=== PATIENT | male | born 1955 | race Caucasian/White ===

== ENCOUNTER → 2016-11-10 | Outpatient (CLI) | payer MEDICARE, BC, MEDICAID | LOC: RAD 14:26 | PROVIDERS: ATTEND Internal Medicine | DX: F03.90 Unspecified dementia, unspecified severity, without behavioral disturbance, psychotic disturbance, mood disturbance, and anxiety (principal) | CPT/HCPCS: 70551 ==

== ENCOUNTER 2017-04-21 23:22 | Emergency (ER) | payer MEDICARE, BC, MEDICAID ==
[2017-04-22] MEDS ORDERED: NORMAL SALINE 1000 ML 1,000 ML IV ONE (00:20)
--- NOTE | 2017-04-22 00:27 | ER Document Report ---
ED General - General Chief Complaint: Accidental Overdose Stated Complaint: POSSIBLE OVERDOSE Time Seen by Provider: 04/21/17 23:38 Cannot obtain history due to: Dementia, Altered mental status Notes: Patient is a 61-year-old male with a past medical history of epilepsy, dementia , hypertension, who presents with altered mental status. Patient still has a very poor historian, does not reliably provide any meaningful details. Family at the bedside states that for the past 3-4 days patient has become more altered , perseverating on his medications, repeatedly asking them about the same topics over and over again. They did pull him out of a fpc on 15 March and have not noticed these behaviors in the past several days. Family is somewhat uncertain if he is other demonstrated similar behaviors in the past although he was hospitalized in 2014 for hyperammonemia and a metabolic encephalopathy. Patient did also apparently take a double dose of valproic acid and Keppra last evening but was demonstrating these symptoms prior to the overdose. Patient himself at this moment denies any concerns or complaints. TRAVEL OUTSIDE OF THE [place] IN LAST 30 DAYS: No - Related Data Allergies/Adverse Reactions: clonazepam [From [employer]] Allergy (Verified 04/21/17 23:26) Past Medical History - General Information source: Patient, Relative Cannot obtain history due to: Dementia, Altered mental status - Social History Smoking Status: Unknown if Ever Smoked Frequency of alcohol use: None Drug Abuse: None Lives with: Family Family History: Reviewed & Not Pertinent Patient has suicidal ideation: No Patient has homicidal ideation: No - Past Medical History Cardiac Medical History: Reports: Hx Hypertension, Hx Heart Murmur - As an adolescent(functional) Denies: Hx Atrial Fibrillation, Hx Congestive Heart Failure, Hx Coronary Artery Disease, Hx Heart Attack, Hx Hypercholesterolemia, Hx Peripheral Vascular Disease, Hx Pulmonary Embolism Pulmonary Medical History: Reports: Hx Sleep Apnea - Not on C-PAP currently Denies: Hx Asthma, Hx Bronchitis, Hx COPD, Hx Pneumonia, Hx Respiratory Failure, Hx Tuberculosis Neurological Medical History: Reports: Hx Seizures - 11/10 leading to TBI. Denies: Hx Cerebrovascular Accident Endocrine Medical History: Reports: Hx Diabetes Mellitus Type 2. Denies: Hx Graves' Disease, Hx Hyperthyroidism, Hx Hypothyroidism Renal/ Medical History: Reports: Hx Benign Prostatic Hyperplasia. Denies: Hx End Stage Renal Disease, Hx Kidney Stones, Hx Peritoneal Dialysis Malignancy Medical History: Denies Hx Lung Cancer GI Medical History: Reports: Hx Gastroesophageal Reflux Disease - No meds. Denies: Hx Crohn's Disease, Hx Hiatal Hernia, Hx Irritable Bowel, Hx Liver Failure, Hx Ulcer Musculoskeltal Medical History: Denies Hx Arthritis, Denies Hx Fibromyalgia, Denies Hx Multiple Sclerosis, Denies Hx Muscular Dystrophy Psychiatric Medical History: Reports: Hx Dementia - TBI, Hx Depression Denies: Hx Bipolar Disorder, Hx Post Traumatic Stress Disorder, Hx Schizophrenia Traumatic Medical History: Reports: Hx Fractures - Hx of fx fingers , Hx Traumatic Brain Injury Past Surgical History: Reports: Hx Bowel Surgery, Hx Cholecystectomy, Hx Tonsillectomy. Denies: Hx Appendectomy, Hx Colostomy, Hx Coronary Artery Bypass Graft, Hx Gastric Bypass Surgery, Hx Herniorrhaphy, Hx Pacemaker - Immunizations Hx Diphtheria, Pertussis, Tetanus Vaccination: Yes Hx Pneumococcal Vaccination: 10/31/11 Review of Systems - Review of Systems Notes: Constitutional: Negative for fever. HENT: Negative for sore throat. Eyes: Negative for visual changes. Cardiovascular: Negative for chest pain. Respiratory: Negative for shortness of breath. Gastrointestinal: Negative for abdominal pain, vomiting or diarrhea. Genitourinary: Negative for dysuria. Musculoskeletal: Negative for back pain. Skin: Negative for rash. Neurological: Negative for headaches, weakness or numbness. Positive for altered mental status 10 point ROS negative except as marked above and in HPI. Physical Exam - Vital signs Vitals: Temp Pulse Resp BP Pulse Ox 97.7 F 118 H 20 132/82 H 97 04/21/17 23:26 04/21/17 23:26 04/21/17 23:26 04/21/17 23:26 04/21/17 23:26 Interpretation: Tachycardic Notes: PHYSICAL EXAMINATION: GENERAL: Frail, somewhat emaciated but in no acute distress. HEAD: Atraumatic, normocephalic. EYES: Pupils equal round and reactive to light, extraocular movements intact, sclera anicteric, conjunctiva are normal. ENT: nares patent, oropharynx clear without exudates. Moderately dry mucous membranes. NECK: Normal range of motion, supple without lymphadenopathy LUNGS: Breath sounds clear to auscultation bilaterally and equal. No wheezes rales or rhonchi. HEART: Regular tachycardia without murmurs ABDOMEN: Soft, nontender, normoactive bowel sounds. No guarding, no rebound. No masses appreciated. EXTREMITIES: Normal range of motion, no pitting or edema. No cyanosis. NEUROLOGICAL: No focal neurological deficits. Moves all extremities spontaneously and on command. PSYCH: Oriented to person, place but not year. Appears to become confused during conversation. SKIN: Warm, Dry, normal turgor, no rashes or lesions noted. Course - Re-evaluation Re-evalutation: 04/22/17 00:26 Patient presents with altered mental status, appears generally confused, family reports multiple bizarre behaviors. Patient did also take an extra dose of his medications although I do not suspect that an additional 500 mg of valproic acid , 500 mg of Keppra and 1 milligram of Ativan would be triggering the symptoms. Moreover family noticed his change in mental status prior to him ingesting these extra medications. Patient is tachycardic at presentation but vitals are otherwise within normal limits. He did have a similar presentation in 2014 at which time he had metabolic encephalopathy secondary to hyperammonemia of unclear etiology although it was thought to be secondary to excessive valproic acid. Will obtain laboratories including an ammonia level, provide IV fluids, and reassess. 04/22/17 03:26 Patient's assessment is completely unremarkable. All labs, CT imaging of the head, chest x-ray, EKG are all clear. Patient's vitals have normalized. Patient does carry a diagnosis of dementia and I suspect that family was not fully aware of the extent of his dementia at time of transitioning him from a care facility to their home. I have discussed this with the family at the bedside who agrees that they will likely need to transition him back to the fpc. They will follow-up with his primary care doctor Dr. Valero. At this time will discharge with return precautions and follow-up recommendations. Verbal discharge instructions given a the bedside and opportunity for questions given. Medication warnings reviewed. Patient is in agreement with this plan and has verbalized understanding of return precautions and the need for primary care follow-up in the next 24-72 hours. - Vital Signs Vital signs: Temp Pulse Resp BP Pulse Ox 97.7 F 118 H 16 128/79 H 97 04/21/17 23:26 04/21/17 23:26 04/22/17 01:00 04/22/17 01:00 04/22/17 01:00 - Laboratory Result Diagrams: 04/22/17 00:15 04/22/17 00:15 Laboratory results interpreted by me: 04/22/17 04/22/17 04/22/17 00:15 00:15 02:40 Plt Count 92 L Direct Bilirubin 0.5 H Urine Protein 100 H Urine Ketones 20 H Urine Urobilinogen 4.0 H - Diagnostic Test Radiology reviewed: Image reviewed, Reports reviewed Radiology results interpreted by me: 04/22/17 03:26 CT of the head: No acute intracranial bleed or mass lesions. Chest x-ray: No acute infiltrate - EKG Interpretation by Me Additional EKG results interpreted by me: 04/22/17 02:33 Sinus rhythm. Rate 93. No ST elevations or depressions. QTC is 448. Discharge - Discharge Clinical Impression: Dementia Qualifiers: Dementia type: unspecified type Dementia behavioral disturbance: with behavioral disturbance Qualified Code(s): F03.91 - Unspecified dementia with behavioral disturbance Altered mental status Qualifiers: Altered mental status type: disorientation Qualified Code(s): R41.0 - Disorientation, unspecified Condition: Stable Disposition: HOME, SELF-CARE Additional Instructions: Your labs, CT imaging of the head, chest x-ray are all normal. Please follow- up with your primary care doctor. Return for any additional concerns you may have. Referrals: AMANDA VALERO MD [Primary Care Provider] - Follow up as needed
[2017-04-22 00:40] LABS: VENOUS BLOOD HCO3 29.1 mmol/L (20-32); VENOUS BLOOD PCO2 49.3 mmHg (35-63); VENOUS BLOOD PH 7.39 (7.30-7.42)
[2017-04-22 00:53] LABS: BLOOD UREA NITROGEN 11 mg/dL (7-20); CALCIUM 9.7 mg/dL (8.4-10.2); CARBON DIOXIDE 28 mmol/L (22-30); CHLORIDE 102 mmol/L (98-107); CREATININE RESULT 1.09 mg/dL (0.52-1.25); GLUCOSE 101 mg/dL (75-110); POTASSIUM 3.7 mmol/L (3.6-5.0); SODIUM 143.6 mmol/L (137-145)
[2017-04-22 00:54] LABS: ALANINE AMINOTRANSFERASE 22 U/L (21-72); ALBUMIN 4.3 g/dL (3.5-5.0); ALKALINE PHOSPHATASE 68 U/L (38-126); ANION GAP 14 (5-19); ASPARTATE AMINO TRANSFERASE 19 U/L (17-59); BILIRUBIN,DIRECT 0.5 mg/dL (0.0-0.4); BILIRUBIN,TOTAL 1.2 mg/dL (0.2-1.3); TOTAL PROTEIN 7.6 g/dL (6.3-8.2)
[2017-04-22 01:08] LABS: VALPROIC ACID 101.7 ug/mL (50.0-120.0)
[2017-04-22 01:11] LABS: ABSOLUTE LYMPHOCYTES (AUTO) 1.6 10^3/uL (0.5-4.7); ABSOLUTE MONOCYTES (AUTO) 0.7 10^3/uL (0.1-1.4); ABSOLUTE NEUT (AUTO) 2.9 10^3/uL (1.7-8.2); BASOPHILS % (AUTO) 0.3 % (0-2); EOSINOPHILS % (AUTO) 0.8 % (0-6); HEMATOCRIT 45.2 % (37.9-51.0); HGB HCT DIFFERENCE 2.8; LYMPHOCYTES % (AUTO) 30.1 % (13-45); MEAN CORPUSCULAR HEMOGLOBIN 31.5 pg (27.0-33.4); MEAN CORPUSCULAR HGB CONC 35.3 g/dL (32.0-36.0); MEAN CORPUSCULAR VOLUME 89 fl (80-97); MONOCYTES % (AUTO) 12.6 % (3-13); RED BLOOD COUNT 5.07 10^6/uL (4.35-5.55); RED CELL DISTRIBUTION WIDTH 13.9 % (11.5-14.0); SEGMENTED NEUTROPHILS % (AUTO) 56.2 % (42-78); WHITE BLOOD COUNT 5.2 10^3/uL (4.0-10.5)
--- NOTE | 2017-04-22 02:48 | RADIOLOGY REPORT (SQ) ---
EXAM DESCRIPTION: CT HEAD WITHOUT COMPLETED DATE/TIME: 04/22/2017 2:09 am REASON FOR STUDY: ams COMPARISON: 05/22/2015. MRI, 11/10/2016. TECHNIQUE: Axial images acquired through the brain without intravenous contrast. Images reviewed wi th bone, brain and subdural windows. Images stored on PACS. All CT scanners at this facility use dose modulation, iterative reconstruction, and/or weight based d osing when appropriate to reduce radiation dose to as low as reasonably achievable (ALARA). [facility]: Dose Right [facility]: CareDose [facility]: Dose Right [facility]: Teradose 4D [facility]: [employer] RADIATION DOSE: Up-to-date CT equipment and radiation dose reduction techniques were employed. CTDIv ol: 55.3 mGy. DLP: 996 mGy-cm. mGy. LIMITATIONS: None. FINDINGS: VENTRICLES: Normal size and contour. CEREBRUM: No masses. No hemorrhage. No midline shift. No evidence for acute infarction. Normal gra y/white matter differentiation. No areas of low density in the white matter. Moderate cerebral volum e loss. CEREBELLUM: No masses. No hemorrhage. No alteration of density. No evidence for acute infarction. EXTRAAXIAL SPACES: No fluid collections. No masses. Atherosclerosis. ORBITS AND GLOBE: No intra- or extraconal masses. Normal contour of globe without masses. CALVARIUM: No fracture. PARANASAL SINUSES: No fluid or mucosal thickening. SOFT TISSUES: No mass or hematoma. OTHER: No other significant finding. IMPRESSION: No acute findings. EVIDENCE OF ACUTE STROKE: NO. COMMENT: Quality ID # [id number]: Final reports with documentation of one or more dose reduction techniques (e.g., Automated exposure control, adjustment of the mA and/or kV according to patient size, use of iterative reconstruction technique) TECHNICAL DOCUMENTATION: JOB ID: [id number] [employer]- All Rights Reserved
--- NOTE | 2017-04-22 02:49 | RADIOLOGY REPORT (SQ) ---
EXAM DESCRIPTION: CHEST SINGLE VIEW COMPLETED DATE/TIME: 04/22/2017 2:24 am REASON FOR STUDY: cough, tachycardia COMPARISON: 05/17/2015. EXAM PARAMETERS: NUMBER OF VIEWS: One view. TECHNIQUE: Single frontal radiographic view of the chest acquired. RADIATION DOSE: NA LIMITATIONS: None. FINDINGS: LUNGS AND PLEURA: No opacities, masses or pneumothorax. No pleural effusion. MEDIASTINUM AND HILAR STRUCTURES: No masses. Contour normal. HEART AND VASCULAR STRUCTURES: Heart normal in size. Normal vasculature. BONES: No acute findings. HARDWARE: None in the chest. OTHER: No other significant finding. IMPRESSION: NO ACUTE RADIOGRAPHIC FINDING IN THE CHEST. TECHNICAL DOCUMENTATION: JOB ID: [id number]
[2017-04-22 03:16] LABS: APPEARANCE,URINE CLOUDY; BILIRUBIN,URINE NEGATIVE (NEGATIVE); GLUCOSE, URINE NEGATIVE (NEGATIVE); KETONES,URINE 20 mg/dL (NEGATIVE); LEUKOCYTE ESTERASE,URINE NEGATIVE (NEGATIVE); NITRITE,URINE NEGATIVE (NEGATIVE); PROTEIN,URINE 100 mg/dL (NEGATIVE); URINE SPECIFIC GRAVITY 1.035
[2017-04-22 03:55] VITALS: BP 128/81
--- NOTE | 2017-04-22 07:23 | EKG REPORT ---
SEVERITY:- ABNORMAL ECG - SINUS RHYTHM LEFT ANTERIOR FASCICULAR BLOCK NONSPECIFIC LATERAL ST-T CHANGES : Confirmed by: Chinedu Kang MD 22-Apr-2017 07:22:58
== END 2017-04-22 03:56 | disposition home or self-care (01) ==
LOC: ER 23:22
DX: F03.91 Unspecified dementia, unspecified severity, with behavioral disturbance (principal); T42.6X1A Poisoning by other antiepileptic and sedative-hypnotic drugs, accidental (unintentional), initial encounter; T42.4X1A Poisoning by benzodiazepines, accidental (unintentional), initial encounter; R00.0 Tachycardia, unspecified; I10 Essential (primary) hypertension; G40.909 Epilepsy, unspecified, not intractable, without status epilepticus; Z79.899 Other long term (current) drug therapy; Z88.8 Allergy status to other drugs, medicaments and biological substances; E11.9 Type 2 diabetes mellitus without complications; Z87.820 Personal history of traumatic brain injury
CPT/HCPCS: 93005; 99285; 96360; 36415; 82140; 85025; 80053; 81001; 80164; 82803; 71010; 70450; 93010; J7030

== ENCOUNTER 2017-04-26 15:26 | Observation (INO) | payer MEDICARE, BC, MEDICAID ==
[2017-04-26 17:27] LABS: HEMATOCRIT 38.8 % (37.9-51.0); HEMOGLOBIN 13.8 g/dL (13.5-17.0); HGB HCT DIFFERENCE 2.6; MEAN CORPUSCULAR HEMOGLOBIN 31.5 pg (27.0-33.4); MEAN CORPUSCULAR HGB CONC 35.6 g/dL (32.0-36.0); MEAN CORPUSCULAR VOLUME 88 fl (80-97); RED BLOOD COUNT 4.39 10^6/uL (4.35-5.55); RED CELL DISTRIBUTION WIDTH 13.3 % (11.5-14.0); WHITE BLOOD COUNT 4.3 10^3/uL (4.0-10.5)
[2017-04-26 17:49] LABS: ALANINE AMINOTRANSFERASE 27 U/L (21-72); ALBUMIN 3.8 g/dL (3.5-5.0); ALKALINE PHOSPHATASE 57 U/L (38-126); ANION GAP 13 (5-19); ASPARTATE AMINO TRANSFERASE 20 U/L (17-59); BILIRUBIN,DIRECT 0.4 mg/dL (0.0-0.4); BILIRUBIN,TOTAL 0.7 mg/dL (0.2-1.3); BLOOD UREA NITROGEN 12 mg/dL (7-20); CALCIUM 9.2 mg/dL (8.4-10.2); CARBON DIOXIDE 26 mmol/L (22-30); CHLORIDE 104 mmol/L (98-107); CREATININE RESULT 0.92 mg/dL (0.52-1.25); GLUCOSE 95 mg/dL (75-110); SODIUM 142.5 mmol/L (137-145); TOTAL PROTEIN 6.9 g/dL (6.3-8.2)
[2017-04-26 18:03] LABS: APPEARANCE,URINE SLIGHTLY-CLOUDY; BILIRUBIN,URINE NEGATIVE (NEGATIVE); GLUCOSE, URINE NEGATIVE (NEGATIVE); KETONES,URINE 20 mg/dL (NEGATIVE); LEUKOCYTE ESTERASE,URINE NEGATIVE (NEGATIVE); NITRITE,URINE NEGATIVE (NEGATIVE); PROTEIN,URINE 30 mg/dL (NEGATIVE); URINE SPECIFIC GRAVITY 1.033
[2017-04-26 18:32] LABS: THYROID STIMULATING HORMONE 0.87 uIU/mL (0.47-4.68)
[2017-04-26] MEDS: NORMAL SALINE 1000 ML 1,000 ML IV PRN (20:30)
--- NOTE | 2017-04-26 21:30 | RADIOLOGY REPORT (SQ) ---
EXAM DESCRIPTION: CHEST PA/LAT COMPLETED DATE/TIME: 04/26/2017 7:05 pm REASON FOR STUDY: ENCEPHALOPATHY COMPARISON: May 2015 EXAM PARAMETERS: NUMBER OF VIEWS: two views TECHNIQUE: Digital Frontal and Lateral radiographic views of the chest acquired. RADIATION DOSE: NA LIMITATIONS: none FINDINGS: LUNGS AND PLEURA: No opacities, masses or pneumothorax. No pleural effusion. MEDIASTINUM AND HILAR STRUCTURES: No masses or contour abnormalities. HEART AND VASCULAR STRUCTURES: Heart normal size. No evidence for failure. BONES: No acute findings. HARDWARE: None in the chest. OTHER: No other significant finding. IMPRESSION: NO SIGNIFICANT RADIOGRAPHIC FINDING IN THE CHEST. TECHNICAL DOCUMENTATION: JOB ID: [id number] [employer]- All Rights Reserved
[2017-04-26] MEDS: LORAZEPAM 1 MG TABLET PO SCH (21:43)
[2017-04-26] MEDS: LEVETIRACETAM 500 MG TABLET PO SCH (21:43)
[2017-04-26] MEDS: DIVALPROEX SODIUM 500 MG TAB.SR.24H PO SCH (21:44)
--- NOTE | 2017-04-26 22:01 | RADIOLOGY REPORT (SQ) ---
EXAM DESCRIPTION: MRI HEAD WITHOUT COMPLETED DATE/TIME: 04/26/2017 6:56 pm REASON FOR STUDY: ENCEPHALOPATHY COMPARISON: Brain CT scan dated 04/22/2017 and MRI of the brain dated October 2016 TECHNIQUE: Multiplanar imaging includes non-contrasted T1, T2, FLAIR, and diffusion with ADC map seq uences. Images stored on PACS. LIMITATIONS: None. FINDINGS: ANATOMY: No anomalies. Normal vascular flow voids. Pituitary fossa normal. CSF SPACES: Normal in size and contour. No hemorrhage. CEREBRUM: Sulci and gyri normal in size and contour. Normal white matter signal on FLAIR imaging. No evidence of hemorrhage, mass, or extraaxial fluid collection. POSTERIOR FOSSA: No signal alteration. No hemorrhage. No edema, masses or mass effect. Internal huma tory canals, cerebello-pontine angles, mastoids normal. DIFFUSION IMAGING: Negative for acute or sub-acute infarction. ORBITS: No masses. Globes normal. PARANASAL SINUSES: No fluid levels. Mucosa normal. OTHER: No other significant finding. IMPRESSION: NORMAL MRI OF THE BRAIN WITHOUT INTRAVENOUS GADOLINIUM CONTRAST. EVIDENCE OF ACUTE STROKE: NO. TECHNICAL DOCUMENTATION: JOB ID: [id number]- All Rights Reserved
[2017-04-27] MEDS: NORMAL SALINE 1000 ML 1,000 ML IV PRN (06:01)
[2017-04-27] MEDS: LORAZEPAM 1 MG TABLET PO SCH (09:24)
[2017-04-27] MEDS: DIVALPROEX SODIUM 500 MG TAB.SR.24H PO SCH (09:24)
[2017-04-27] MEDS: LEVETIRACETAM 500 MG TABLET PO SCH (09:24)
[2017-04-27] MEDS ORDERED: LORAZEPAM 1 MG TABLET PO SCH (10:00)
[2017-04-27] MEDS ORDERED: CITALOPRAM HYDROBROMIDE 20 MG TABLET PO SCH (10:00)
[2017-04-27] MEDS ORDERED: DIVALPROEX SODIUM 500 MG TAB.SR.24H PO SCH (10:00)
[2017-04-27 12:08] VITALS: BP 121/68
--- NOTE | 2017-04-27 15:13 | PDOC H&P ---
History of Present Illness Admission Date/PCP: 04/26/17 15:26 AMANDA VALERO MD History of Present Illness: SHON PAZ is a 61 year old male he has a history of dementia, hypertension, epilepsy, he used to be a resident of the residential at [facility] he was recently discharged home with family. Family stated that in the last few days patient has become more altered somewhat confused and it is suspected that he is probably overdosing on his medication unintentionally. He was evaluated in the emergency room on 04/21/2017 for possible overdose, family stated that the emergency room physician wants him to follow with me in the office for further evaluation. It seems that the patient and his family has decided that it is best for him to return back to the residential at [facility]. Because of his recent confusion patient was admitted directly from the office into the hospital for evaluation of his symptoms. MRI of the brain was done it came back as normal, the metabolic panel and including electrolytes, hemogram came back normal the urinalysis was also nonrevealing. At This point I do not see any intercurrent illness that will qualify this patient for inpatient care, he be discharged home and family have to make alternative arrangements to get him back to residential. Past Medical History Cardiac Medical History: Reports: Hypertension Pulmonary Medical History: Reports: Sleep Apnea - Not on C-PAP currently Neurological Medical History: Reports: Seizures - 11/10 leading to TBI GI Medical History: Reports: Gastroesophageal Reflux Disease - No meds Psychiatric Medical History: Reports: Dementia - TBI, Depression Traumatic Medical History: Reports: Traumatic Brain Injury Past Surgical History Past Surgical History: Reports: Cholecystectomy, Tonsillectomy, Other - Colectomy for villous adenoma Social History Smoking Status: Never Smoker Frequency of Alcohol Use: None Hx Recreational Drug Use: No Drugs: None Hx Prescription Drug Abuse: No Family History Family History: Reviewed & Not Pertinent Parental Family History Reviewed: Yes Children Family History Reviewed: Yes Sibling(s) Family History Reviewed.: Yes Medication/Allergy Home Medications: Citalopram Hydrobromide [Celexa 20 mg Tablet] 30 mg PO DAILY 04/26/17 Divalproex Sodium [Divalproex Sodium ER] 500 mg PO BID 04/26/17 Levetiracetam [Keppra 500 mg Tablet] 1,000 mg PO Q12 04/26/17 Lorazepam [Ativan 1 mg Tablet] 1 mg PO BID 04/26/17 Allergies/Adverse Reactions: clonazepam [From Klonopin] Allergy (Verified 04/21/17 23:26) Review of Systems Constitutional: ABSENT: chills, fever(s), headache(s), weight gain, weight loss Eyes: ABSENT: visual disturbances Ears: ABSENT: hearing changes Cardiovascular: ABSENT: chest pain, dyspnea on exertion, edema, orthropnea, palpitations Respiratory: ABSENT: cough, hemoptysis Gastrointestinal: ABSENT: abdominal pain, constipation, diarrhea, hematemesis, hematochezia, nausea, vomiting Genitourinary: ABSENT: dysuria, hematuria Musculoskeletal: ABSENT: joint swelling Integumentary: ABSENT: rash, wounds Neurological: PRESENT: confusion Psychiatric: ABSENT: anxiety, depression, homidical ideation, suicidal ideation Endocrine: ABSENT: cold intolerance, heat intolerance, menstrual abnormalities, polydipsia, polyuria Hematologic/Lymphatic: ABSENT: easy bleeding, easy bruising, lymphadenopathy Physical Exam Vital Signs: Temp Pulse Resp BP Pulse Ox 97.6 F 60 17 121/68 98 04/27/17 11:10 04/27/17 14:00 04/27/17 11:10 04/27/17 11:10 04/27/17 11:10 Intake & Output 04/26/17 04/27/17 04/28/17 06:59 06:59 06:59 Intake Total 1920 Output Total 650 Balance 1270 Weight 65.8 kg General appearance: PRESENT: no acute distress, well-developed, well-nourished Head exam: PRESENT: atraumatic, normocephalic Eye exam: PRESENT: conjunctiva pink, EOMI, PERRLA Ear exam: PRESENT: normal external ear exam Mouth exam: PRESENT: moist, tongue midline Neck exam: PRESENT: full ROM Respiratory exam: PRESENT: clear to auscultation carolyn Cardiovascular exam: PRESENT: RRR, +S1, +S2 Pulses: PRESENT: normal dorsalis pedis pul, +2 pedal pulses bilateral Vascular exam: PRESENT: normal capillary refill GI/Abdominal exam: PRESENT: normal bowel sounds, soft Rectal exam: PRESENT: deferred Neurological exam: PRESENT: alert, CN II-XII grossly intact Psychiatric exam: PRESENT: flat affect Skin exam: PRESENT: dry, intact, warm Results Laboratory Results: 04/26/17 17:14 04/26/17 17:14 04/26/17 04/26/17 04/26/17 17:14 17:14 17:14 WBC 4.3 RBC 4.39 Hgb 13.8 Hct 38.8 MCV 88 MCH 31.5 MCHC 35.6 RDW 13.3 Plt Count 101 L Sodium 142.5 Potassium 4.0 Chloride 104 Carbon Dioxide 26 Anion Gap 13 BUN 12 Creatinine 0.92 Est GFR ( Amer) > 60 Est GFR (Non-Af Amer) > 60 Glucose 95 Calcium 9.2 Total Bilirubin 0.7 AST 20 ALT 27 Alkaline Phosphatase 57 Total Protein 6.9 Albumin 3.8 TSH 0.87 Free T4 1.41 Urine Color Urine Appearance Urine pH Ur Specific [place] Urine Protein Urine Glucose (UA) Urine Ketones Urine Blood Urine Nitrite Ur Leukocyte Esterase Urine WBC (Auto) Urine RBC (Auto) 04/26/17 17:25 WBC RBC Hgb Hct MCV MCH MCHC RDW Plt Count Sodium Potassium Chloride Carbon Dioxide Anion Gap BUN Creatinine Est GFR ( Amer) Est GFR (Non-Af Amer) Glucose Calcium Total Bilirubin AST ALT Alkaline Phosphatase Total Protein Albumin TSH Free T4 Urine Color MARIE Urine Appearance SLIGHTLY-CLOUDY Urine pH 5.0 Ur Specific [place] 1.033 Urine Protein 30 H Urine Glucose (UA) NEGATIVE Urine Ketones 20 H Urine Blood NEGATIVE Urine Nitrite NEGATIVE Ur Leukocyte Esterase NEGATIVE Urine WBC (Auto) 2 Urine RBC (Auto) 1 Impressions: Chest X-Ray 04/26/17 00:00 IMPRESSION: NO SIGNIFICANT RADIOGRAPHIC FINDING IN THE CHEST. Head MRI 04/26/17 00:00 IMPRESSION: NORMAL MRI OF THE BRAIN WITHOUT INTRAVENOUS GADOLINIUM CONTRAST. EVIDENCE OF ACUTE STROKE: NO. Assessment & Plan - Diagnosis (1) Encephalopathy, unspecified Is this a current diagnosis for this admission?: Yes Plan: Patient was admitted for evaluation of encephalopathic symptoms, MRI of the brain was normal, the metabolic panel came back normal
--- NOTE | 2017-05-02 15:05 | EEG PRO FEE REPORT ---
EEG INTERPRETATION PATIENT NAME: SHON PAZ ROOM#: [id number] ORDER#: [id number] DATE OF STUDY: 04/27/2017 : 1955 REFERRING MD: AMANDA VALERO M.D. DIAGNOSIS: Encephalopathy MEDICATIONS: None listed REPORT This is a 16 channel EEG recording with a channel of EKG done during wakefulness, photic stimulation, and early stages of sleep. The background activity is 7.5-8 cycles per second, well formed and reactive alpha best seen in the posterior electrodes. Beta 18-22 cycles per second, intermittent, nonlocalized or sustained slower forms seen especially during drowsiness and mild to moderate artifact. Photic stimulation did not alter the tracing significantly; more generalized slowing seen in the early stages of sleep. IMPRESSION This EEG is within normal limits. INTERPRETING PHYSICIAN: ILDEFONSO HERNANDEZ M.D. /: MTEFFT TT: 1457 ID: [id number] /: [id number] TD: 1204 JOB: [id number] cc:Trudy DOUGLASS M.D. > MTDD
== END 2017-04-27 17:15 | disposition home health service (06) ==
LOC: 5 15:26 → INTOOBSV 15:26
PROVIDERS: ADMIT Internal Medicine; ATTEND Internal Medicine
PROC: 4A10X4Z Monitoring of Central Nervous Electrical Activity, External Approach (ICD-10-PCS; principal; 2017-04-27)
DX: G93.40 Encephalopathy, unspecified (principal); G40.909 Epilepsy, unspecified, not intractable, without status epilepticus; F03.90 Unspecified dementia, unspecified severity, without behavioral disturbance, psychotic disturbance, mood disturbance, and anxiety; F32.9 Major depressive disorder, single episode, unspecified; Z87.820 Personal history of traumatic brain injury; Z90.49 Acquired absence of other specified parts of digestive tract
CPT/HCPCS: 95819 ×2; 36415; 87040; 87086; 84439; 84443; 85027; 80076; 80048; 81001; 70551; 71020; G0378; G0379; A9270 ×7; J7030 ×2

== ENCOUNTER 2017-08-15 15:35 | Emergency (ER) | payer MEDICARE, MEDICAID ==
--- NOTE | 2017-08-15 17:10 | ER Document Report ---
HPI - HPI Pain Level: 3 - REPRODUCTIVE Reproductive: DENIES: : Past Medical History - Social History Smoking Status: Unknown if Ever Smoked Family History: Reviewed & Not Pertinent Patient has suicidal ideation: No Patient has homicidal ideation: No - Past Medical History Cardiac Medical History: Reports: Hx Hypertension, Hx Heart Murmur - As an adolescent(functional) Denies: Hx Atrial Fibrillation, Hx Congestive Heart Failure, Hx Coronary Artery Disease, Hx Heart Attack, Hx Hypercholesterolemia, Hx Peripheral Vascular Disease, Hx Pulmonary Embolism Pulmonary Medical History: Reports: Hx Sleep Apnea - Not on C-PAP currently Denies: Hx Asthma, Hx Bronchitis, Hx COPD, Hx Pneumonia, Hx Respiratory Failure, Hx Tuberculosis Neurological Medical History: Reports: Hx Seizures - 11/10 leading to TBI. Denies: Hx Cerebrovascular Accident Endocrine Medical History: Reports: Hx Diabetes Mellitus Type 2. Denies: Hx Graves' Disease, Hx Hyperthyroidism, Hx Hypothyroidism Renal/ Medical History: Reports: Hx Benign Prostatic Hyperplasia. Denies: Hx End Stage Renal Disease, Hx Kidney Stones, Hx Peritoneal Dialysis Malignancy Medical History: Denies Hx Lung Cancer GI Medical History: Reports: Hx Gastroesophageal Reflux Disease - No meds. Denies: Hx Crohn's Disease, Hx Hiatal Hernia, Hx Irritable Bowel, Hx Liver Failure, Hx Pancreatitis, Hx Ulcer Musculoskeltal Medical History: Denies Hx Arthritis, Denies Hx Fibromyalgia, Denies Hx Multiple Sclerosis, Denies Hx Muscular Dystrophy Psychiatric Medical History: Reports: Hx Dementia - TBI, Hx Depression Denies: Hx Bipolar Disorder, Hx Post Traumatic Stress Disorder, Hx Schizophrenia Traumatic Medical History: Reports: Hx Fractures - Hx of fx fingers , Hx Traumatic Brain Injury Past Surgical History: Reports: Hx Bowel Surgery, Hx Cholecystectomy, Hx Tonsillectomy, Other - Colectomy for villous adenoma. Denies: Hx Appendectomy, Hx Colostomy, Hx Coronary Artery Bypass Graft, Hx Gastric Bypass Surgery, Hx Herniorrhaphy, Hx Pacemaker - Immunizations Hx Diphtheria, Pertussis, Tetanus Vaccination: Yes Hx Pneumococcal Vaccination: 10/31/11 Vertical Provider Document - INFECTION CONTROL TRAVEL OUTSIDE OF THE [place] IN LAST 30 DAYS: No - RESPIRATORY O2 Sat by Pulse Oximetry: 97 Course - Vital Signs Vital signs: Temp Pulse Resp BP Pulse Ox 73 18 181/83 H 97 08/15/17 16:00 08/15/17 16:00 08/15/17 16:00 08/15/17 16:00
[2017-08-15 18:35] LABS: HEMATOCRIT 38.6 % (37.9-51.0); HEMOGLOBIN 13.6 g/dL (13.5-17.0); MEAN CORPUSCULAR HEMOGLOBIN 30.7 pg (27.0-33.4); MEAN CORPUSCULAR HGB CONC 35.1 g/dL (32.0-36.0); MEAN CORPUSCULAR VOLUME 87 fl (80-97); PLATELET COUNT 114 10^3/uL (150-450); RED BLOOD COUNT 4.42 10^6/uL (4.35-5.55); RED CELL DISTRIBUTION WIDTH 12.9 % (11.5-14.0)
[2017-08-15 18:37] LABS: INTERNATIONAL RATION (INR) 1.04; PARTIAL THROMBOPLASTIN TIME 28.3 SEC (23.5-35.8); PROTHROMBIN TIME 14.3 SEC (11.4-15.4)
[2017-08-15] MEDS ORDERED: TRANEXAMIC ACID INJ/PF 1,000 MG/10 ML SDV IV ONE ×2 (18:37→18:58)
[2017-08-15 18:54] LABS: ABSOLUTE LYMPHOCYTES# (MANUAL) 0.3 10^3/uL (0.5-4.7); ABSOLUTE MONOCYTES # (MANUAL) 0.6 10^3/uL (0.1-1.4); ABSOLUTE NEUTROPHILS# (MANUAL) 10.1 10^3/uL (1.7-8.2); BAND NEUTROPHILS % (MANUAL) 2 % (3-5); BASOPHILS % (MANUAL) 0 % (0-2); EOSINOPHILS % (MANUAL) 0 % (0-6); LYMPHOCYTES % (MANUAL) 3 % (13-45); MONOCYTES % (MANUAL) 5 % (3-13); PLATELET COMMENT ADEQUATE; PLATELET GIANT PRESENT; SEGMENTED NEUTROPHILS % (MAN) 90 % (42-78); TOTAL CELLS COUNTED 100
--- NOTE | 2017-08-15 18:56 | ER Document Report ---
ED Oral Problem - General Mode of Arrival: Medic Information source: Patient TRAVEL OUTSIDE OF THE [place] IN LAST 30 DAYS: No <MARIA ESTHER DIAZ - Last Filed: 08/15/17 20:00> <NATHALY DARDEN - Last Filed: 08/16/17 05:36> - General Chief Complaint: Bleeding Gums Stated Complaint: BLEEDING FROM MOUTH Time Seen by Provider: 08/15/17 17:10 Notes: 62-year-old male had all of his teeth extracted today at 11:00 by a dentist. He was sent from [facility] because his mouth will not stop bleeding. He does not take anticoagulants. He does not feel dizzy. (MARIA ESTHER DIAZ) - Related Data Allergies/Adverse Reactions: clonazepam [From KlonomeQuilibrium] Allergy (Verified 04/21/17 23:26) Past Medical History - General Information source: Patient - Social History Smoking Status: Unknown if Ever Smoked Frequency of alcohol use: None Drug Abuse: None Lives with: Intermediate - 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 TBI Endocrine Medical History: Reports: Hx Diabetes Mellitus Type 2 Renal/ Medical History: Reports: Hx Benign Prostatic Hyperplasia GI Medical History: Reports: Hx Gastroesophageal Reflux Disease - No meds Psychiatric Medical History: Reports: Hx Dementia - TBI, Hx Depression Traumatic Medical History: Reports: Hx Fractures - Hx of fx fingers , Hx Traumatic Brain Injury Past Surgical History: Reports: Hx Bowel Surgery, Hx Cholecystectomy, Hx Tonsillectomy, Other - Colectomy for villous adenoma - Immunizations Hx Diphtheria, Pertussis, Tetanus Vaccination: Yes Hx Pneumococcal Vaccination: 10/31/11 <MARIA ESTHER DIAZ - Last Filed: 08/15/17 20:00> Review of Systems - Review of Systems Constitutional: No symptoms reported EENT: See HPI Cardiovascular: No symptoms reported Respiratory: No symptoms reported Gastrointestinal: No symptoms reported Genitourinary: No symptoms reported Male Genitourinary: No symptoms reported Musculoskeletal: No symptoms reported Skin: No symptoms reported Hematologic/Lymphatic: No symptoms reported Neurological/Psychological: No symptoms reported <MARIA ESTHER DIAZ - Last Filed: 08/15/17 20:00> Physical Exam - Vital signs Interpretation: Hypertensive - mild - General General appearance: Alert, Other - pale - HEENT Head: Normocephalic, Atraumatic Eyes: Normal Pupils: PERRL Mucous membranes: Other - all teeth extracted, gums sutured, oozing blood posteriorly bilateral upper and lower. lower dentures that were in place were removed and oozing blool from under the dentures, and had to see what was bleeding Pharynx: Normal - Respiratory Respiratory status: No respiratory distress Chest status: Nontender Breath sounds: Normal Chest palpation: Normal - Cardiovascular Rhythm: Regular Heart sounds: Normal auscultation Murmur: No - Abdominal Inspection: Normal Distension: No distension Bowel sounds: Normal Tenderness: Nontender Organomegaly: No organomegaly - Back Back: Normal, Nontender - Extremities General upper extremity: Normal inspection, Nontender, Normal color, Normal ROM , Normal temperature General lower extremity: Normal inspection, Nontender, Normal color, Normal ROM , Normal temperature, Normal weight bearing. No: Harmeet's sign - Neurological Neuro grossly intact: Yes Cognition: Normal Orientation: AAOx4 [place] Coma Scale Eye Opening: Spontaneous [place] Coma Scale Verbal: Oriented [place] Coma Scale Motor: Obeys Commands [place] Coma Scale Total: 15 Speech: Normal Motor strength normal: LUE, RUE, LLE, RLE Sensory: Normal - Psychological Associated symptoms: Normal affect, Normal mood - Skin Skin Temperature: Warm Skin Moisture: Dry Skin Color: Normal Skin irregularity: negative: Rash <MARIA ESTHER DIAZ - Last Filed: 08/15/17 20:00> - Vital signs Vitals: Pulse Resp BP Pulse Ox 73 18 181/83 H 97 08/15/17 16:00 08/15/17 16:00 08/15/17 16:00 08/15/17 16:00 Course - Laboratory Result Diagrams: 08/15/17 18:14 <MARIA ESTHER DIAZ - Last Filed: 08/15/17 20:00> - Laboratory Result Diagrams: 08/15/17 18:14 <NATHALY DARDEN - Last Filed: 08/16/17 05:36> - Re-evaluation Re-evalutation: 08/15/17 19:04 platelets 114,000. sure foam not resolving the bleeding as instructed by dr. gillespie, TXA just placed on cotton ball and pt biting down for 5 minutes now on the right side. Looks like left side is not ozzing anymore but will recheck. HGB, PT, PTT OK. 08/15/17 20:00 TXA not much help, had to apply direct pressure applied and the oozing significantly improved. gauze laid on top the the gums, care transferred to Nathaly SABILLON who will check the patient at 8: 30 and the patient understands to gently suction his mouth if there is some saliva but not to spit at all. He has the suction and call frederick in hand. Report and exam with nathaly at the bedside. (MARIA ESTHER DIAZ) 08/15/17 21:24 Patient has now been re-evaluated for any signs of bleeding and remaining dry. Patient requesting home medications, will conduct PO trial now Have left messages for patients dentist Dr. Malave with no return call 08/16/17 00:[address] Villasenor at [facility] who is the dentist taxation agent who recommends buccal block with epinephrine, obs for 2-3 hours 08/16/17 05:32 bleed free coordinating transport to [facility] and will f/u outpt with Dentist (NATHALY DARDEN) - Vital Signs Vital signs: Temp Pulse Resp BP Pulse Ox 98.1 F 80 14 128/69 H 97 08/15/17 23:56 08/15/17 23:56 08/15/17 23:56 08/15/17 23:56 08/15/17 23:56 - Laboratory Laboratory results interpreted by me: 08/15/17 18:14 WBC 11.0 H Plt Count 114 L Seg Neuts % (Manual) 90 H Band Neutrophils % 2 L Lymphocytes % (Manual) 3 L Abs Neuts (Manual) 10.1 H Abs Lymphs (Manual) 0.3 L Discharge <MARIA ESTHER DIAZ - Last Filed: 08/15/17 20:00> <NATHALY DARDEN - Last Filed: 08/16/17 05:36> - Discharge Clinical Impression: Postoperative bleeding from mouth Condition: Stable Disposition: HOME-ASSISTED LIVING Additional Instructions: You were evaluated in the ER today for post operative bleeding from your dental extraction today. Recommendations for you are to avoid any sipping on straws, chewing, direct pressure to your gums for this may disturb the blood clots and cause bleeding again. You're to be on a soft/liquid diet for the next 48-72 hours. You can do warm salt water rinses for comfort starting on August 17. Otherwise please make a phone call to your dentist today to discuss your visit in the ER and to schedule follow-up.
[2017-08-15] MEDS ORDERED: LORAZEPAM 1 MG TABLET PO ONE (21:23)
[2017-08-15] MEDS ORDERED: DIVALPROEX SODIUM 500 MG TAB.SR.24H PO ONE (21:23)
[2017-08-15] MEDS ORDERED: LEVETIRACETAM 500 MG TABLET PO ONE (21:23)
[2017-08-16] MEDS ORDERED: LIDOCAINE 1%/EPINEPHRINE INJ 20 ML VIAL INJ ONE (00:01)
[2017-08-16] MEDS ORDERED: BUPIVACAINE HCL 0.25% /EPINEPHRINE INJ/PF 30 ML SDV INJ ONE (01:12)
[2017-08-16 08:26] VITALS: BP 127/77
== END 2017-08-16 08:26 | disposition home health service (06) ==
LOC: ER 15:35
DX: K91.840 Postprocedural hemorrhage of a digestive system organ or structure following a digestive system procedure (principal); Y83.6 Removal of other organ (partial) (total) as the cause of abnormal reaction of the patient, or of later complication, without mention of misadventure at the time of the procedure; Z88.8 Allergy status to other drugs, medicaments and biological substances; E11.9 Type 2 diabetes mellitus without complications; I10 Essential (primary) hypertension
CPT/HCPCS: 99283; 96374; 36415; 85025; 85610; 85730; A9270 ×3; J3490

== ENCOUNTER 2018-07-06 17:22 | Inpatient (IN) | payer MEDICARE, MEDICAID ==
[2018-07-06] MEDS ORDERED: LEVETIRACETAM 1000 MG/NACL-ISO 1,000 MG/100 ML RTUPB IV ONE (18:20)
--- NOTE | 2018-07-06 18:21 | ER Document Report ---
ED Seizure - General Mode of Arrival: Medic Information source: Patient <SHARYN CARRINGTON - Last Filed: 07/06/18 21:32> <MARVIN MAY - Last Filed: 07/06/18 23:31> - General Chief Complaint: Fall Stated Complaint: POSSIBLE SEIZURE Time Seen by Provider: 07/06/18 18:06 Notes: 62-year-old male with a seizure disorder that presents to the emergency department today after a witnessed seizure at his nursing facility ([facility]) by other [facility]p residents. Patient is on Depakote and Keppra according to pharmacy records. EMS states that the [facility] staff was unable to clarify whether or he had a seizure disorder. [facility] staff also was not able to elaborate on the possible seizure as it was not witnessed by them. The patient complains of " not being able to breathe properly" but denies any other complaints. (SHARYN CARRINGTON) - Related Data Allergies/Adverse Reactions: clonazepam [From Klonopin] Allergy (Verified 04/21/17 23:26) Past Medical History - General Information source: Patient - Social History Smoking Status: Unknown if Ever Smoked Cigarette use (# per day): No Frequency of alcohol use: None Drug Abuse: None Lives with: Skilled Nursing Family History: Reviewed & Not Pertinent Patient has suicidal ideation: No Patient has homicidal ideation: No - Past Medical History Cardiac Medical History: Reports: Hx Hypertension, Hx Heart Murmur - As an adolescent(functional) Pulmonary Medical History: Reports: Hx Sleep Apnea - Not on C-PAP currently Neurological Medical History: Reports: Hx Seizures - 11/10 leading to TBI. on Keppra and Depakote Endocrine Medical History: Reports: Hx Diabetes Mellitus Type 2 Renal/ Medical History: Reports: Hx Benign Prostatic Hyperplasia GI Medical History: Reports: Hx Gastroesophageal Reflux Disease - No meds Psychiatric Medical History: Reports: Hx Dementia - TBI, Hx Depression Traumatic Medical History: Reports: Hx Fractures - Hx of fx fingers , Hx Traumatic Brain Injury Past Surgical History: Reports: Hx Bowel Surgery, Hx Cholecystectomy, Hx Oral Surgery - Had all teeth pulled earlier today, Hx Tonsillectomy, Other - Colectomy for villous adenoma - Immunizations Hx Diphtheria, Pertussis, Tetanus Vaccination: Yes Hx Pneumococcal Vaccination: 10/31/11 <SHARYN CARRINGTON - Last Filed: 07/06/18 21:32> - Social History Smoking Status: Never Smoker <MARVIN MAY - Last Filed: 07/06/18 23:31> Review of Systems - Review of Systems Constitutional: No symptoms reported EENT: No symptoms reported Cardiovascular: No symptoms reported Respiratory: See HPI, Short of breath Gastrointestinal: No symptoms reported Genitourinary: No symptoms reported Male Genitourinary: No symptoms reported Musculoskeletal: No symptoms reported Skin: No symptoms reported Hematologic/Lymphatic: No symptoms reported Neurological/Psychological: See HPI, Seizure -: Yes All other systems reviewed and negative <SHARYN CARRINGTON - Last Filed: 07/06/18 21:32> Physical Exam <SHARYN CARRINGTON - Last Filed: 07/06/18 21:32> <MARVIN MAY - Last Filed: 07/06/18 23:31> - Vital signs Vitals: Temp Pulse Resp BP Pulse Ox 98.5 F 71 20 150/81 H 100 07/06/18 17:31 18 17:31 07/06/18 17:31 07/06/18 17:31 07/06/18 17:31 - Notes Notes: PHYSICAL EXAM GENERAL: Alert, interacts well until going into a seizure, consisting of approximately 90 seconds of tonic-clonic movement with the majority of the movement being with the LUE, some RUE movement. No lower extremity movement. Eyes are deviated upward and to the left during this. HEAD: Normocephalic, right posterior parietal hematoma with overlying 4cm superficial abrasion. No true laceration. No active bleeding. EYES: Pupils equal, round, and reactive to light. Extraocular movements intact. ENT: Oral mucosa moist, tongue midline. Edentulous. NECK: Full range of motion. Supple. Trachea midline. LUNGS: Diffuse expiratory wheezing, no rales or rhonchi. No respiratory distress. HEART: Regular rate and rhythm. No murmurs, gallops, or rubs. ABDOMEN: Soft, non-tender. Non-distended. Bowel sounds present in all 4 quadrants. No guarding, rigidity, or rebound. EXTREMITIES: Moves all 4 extremities spontaneously. No edema, radial and dorsalis pedis pulses 2/4 bilaterally. No cyanosis. NEUROLOGICAL: Alert and oriented x3. Normal speech. PSYCH: Normal affect, normal mood. SKIN: Warm, dry, normal turgor. (SHARYN CARRINGTON) Pulse oximeter shows good waveform, 100% on room air, no hypoxia per my interpretation. (MARVIN MAY) Course - Laboratory Result Diagrams: 07/06/18 18:27 07/06/18 18:27 <SHARYN CARRINGTON - Last Filed: 07/06/18 21:32> - Laboratory Result Diagrams: 18 18:27 12 18:27 <MARVIN MAY - Last Filed: 07/06/18 23:31> - Re-evaluation Re-evalutation: 07/06/18 21:15 Alerted by nursing staff that the patient has begun seizing again (SHARYN CARRINGTON) 07/06/18 18:39 EKG shows sinus rhythm at a rate of 72, left axis deviation, left anterior hemiblock, no ST segment elevations or depressions, there are nonspecific T wave inversions that are isolated to aVL per my interpretation. 07/06/18 20:43 No further seizure activity at this point, albuterol breathing treatment has resolved all wheezing however he states he feels still feels short of breath and would like oxygen. Patient is currently 100% with good waveform on room air which is not hypoxic per my interpretation. Discussed with the patient that oxygen would not help him at this point so we will not be starting it. I will do a second albuterol breathing treatment to see if it helps his symptoms at all. Chest x-ray is pending. 07/06/18 22:17 Both seizures terminated within about 90 seconds without Ativan. Patient is at what appears to be at his neurologic baseline. CBC shows a low white blood cell count at 2.8, mild anemia with a hemoglobin 12.9, platelets slightly low at 101, chemistries grossly unremarkable, no renal failure, urinalysis shows moderate blood, 53 RBCs, no evidence that this is rhabdomyolysis. [facility] level is a send out. CT scan of the head shows chronic microvascular ischemia but no acute bleeding, chest x-ray does not show any acute process per my interpretation. We are waiting on the radiology read. After two breathing treatments patient's wheezing has resolved completely. Discussed case with Dr. Riley who states that he does not see patients in the [facility] in this patient is no longer his patient. Instructed me to call the hospitalist. Phone call was made to hospitalist and responses pending. 07/06/18 23:11 Discussed patient with hospitalist who states that since the patient has a prescription that was refilled approximately [address] Riley's name the Dr. Lainez is still actively caring for the past patient and he should admit the patient. Dr. Riley was contacted again and states that he will not admit this patient because he does not admit patients from the [facility] and there is another provider taking care of this patient now. I did call and confirm with the [facility] that there is a nurse practitioner Kait Davila Who is treating this patient. They do not know whether or not Dr. Riley has called in refills for this patient or if this is simply an old prescription. I then discussed the case with the executive on-call Ishmael Richardson who states that Dr. Riley should admit the patient. I relayed this message to Dr. Riley who again states that this is not his patient, it is now unassigned and it is the job of the hospitalist to admit. After discussing this further with the executive on-call he asked me to ask the hospitalist to please admit this patient in order to not further delay patient care. Dr. Goldberg and Dr. Adkins agreed to admit this patient to the [facility]. Given the question of whether or not the patient has been receiving their medications [facility] as the edson from the [facility] states that he has already received his dosages for the seventh and the eighth despite the fact that is only the sixth I have opted to give the patient an oral dose of Ativan in case he has missed any of his doses at the [facility]. 07/06/18 23:23 patient is now vomiting, Ativan will be given 0.5 mg IV along with Zofran. Patient still has no abdominal pain and no other symptoms. Patient did have one more seizure that lasted 60 seconds. (MARVIN MAY) - Vital Signs Vital signs: Temp Pulse Resp BP Pulse Ox 98.5 F 71 13 148/95 H 100 07/06/18 17:31 07/06/18 17:31 07/06/18 18:26 07/06/18 18:26 07/06/18 18:26 - Laboratory Laboratory results interpreted by me: 07/06/18 07/06/18 07/06/18 18:27 18:27 18:43 WBC 2.8 L RBC 3.93 L Hgb 12.9 L Hct 36.0 L RDW 14.3 H Plt Count 101 L Absolute Neutrophils 1.5 L Chloride 97 L Carbon Dioxide 31 H ALT 18 L Urine Ketones TRACE H Urine Blood MODERATE H Urine Urobilinogen 4.0 H - EKG Interpretation by Me Additional EKG results interpreted by me: 07/06/18 20:43 EKG shows sinus rhythm rate of 72, left anterior hemiblock, no ST segment elevations or depressions, isolated T wave inversions in aVL per my interpretation. (MARVIN MAY) Discharge <SHARYN CARRINGTON - Last Filed: 07/06/18 21:32> - Discharge Admitting Provider: [facility] Unit Admitted: [facility] <MARVIN MAY - Last Filed: 07/06/18 23:31> - Discharge Clinical Impression: Seizure Qualifiers: Convulsion type: unspecified Qualified Code(s): R56.9 - Unspecified convulsions Vomiting Qualifiers: Vomiting type: unspecified Vomiting Intractability: non-intractable Nausea presence: with nausea Qualified Code(s): R11.2 - Nausea with vomiting, unspecified Condition: Fair Disposition: ADMITTED INPATIENT Scribe Attestation: 07/06/18 23:31 I personally performed the services described in the documentation, reviewed and edited the documentation which was dictated to the scribe in my presence, and it accurately records my words and actions. (MARVIN MAY) Scribe Documentation - Scribe Written by Jah:: Jah Hillman, 07/06/2018 1833 acting as scribe for :: Bisi <SHARYN CARRINGTON - Last Filed: 07/06/18 21:32>
[2018-07-06] MEDS ORDERED: ALBUTEROL SULFATE 0.083% NEB 2.5 MG/3 ML AMPUL NEB ONE ×2 (18:32→20:42)
[2018-07-06 18:36] LABS: ABSOLUTE EOSINOPHILS # (AUTO) 0.1 10^3/uL (0.0-0.6); ABSOLUTE LYMPHOCYTES (AUTO) 0.8 10^3/uL (0.5-4.7); ABSOLUTE MONOCYTES (AUTO) 0.3 10^3/uL (0.1-1.4); ABSOLUTE NEUT (AUTO) 1.5 10^3/uL (1.7-8.2); BASOPHILS % (AUTO) 0.8 % (0-2); EOSINOPHILS % (AUTO) 2.4 % (0-6); HEMOGLOBIN 12.9 g/dL (13.5-17.0); LYMPHOCYTES % (AUTO) 29.6 % (13-45); MEAN CORPUSCULAR HEMOGLOBIN 32.7 pg (27.0-33.4); MEAN CORPUSCULAR HGB CONC 35.8 g/dL (32.0-36.0); MEAN CORPUSCULAR VOLUME 92 fl (80-97); MONOCYTES % (AUTO) 12.1 % (3-13); PLATELET COUNT 101 10^3/uL (150-450); RED BLOOD COUNT 3.93 10^6/uL (4.35-5.55); RED CELL DISTRIBUTION WIDTH 14.3 % (11.5-14.0); SEGMENTED NEUTROPHILS % (AUTO) 55.1 % (42-78); TOTAL CELLS COUNTED % (AUTO) 100 %; WHITE BLOOD COUNT 2.8 10^3/uL (4.0-10.5)
[2018-07-06 18:56] LABS: ALANINE AMINOTRANSFERASE 18 U/L (21-72); ALBUMIN 4.4 g/dL (3.5-5.0); ALKALINE PHOSPHATASE 58 U/L (38-126); ANION GAP 13 (5-19); ASPARTATE AMINO TRANSFERASE 35 U/L (17-59); BILIRUBIN,DIRECT 0.2 mg/dL (0.0-0.4); BILIRUBIN,TOTAL 0.6 mg/dL (0.2-1.3); BLOOD UREA NITROGEN 16 mg/dL (7-20); CALCIUM 9.4 mg/dL (8.4-10.2); CARBON DIOXIDE 31 mmol/L (22-30); CHLORIDE 97 mmol/L (98-107); GLUCOSE 104 mg/dL (75-110); POTASSIUM 4.3 mmol/L (3.6-5.0); SODIUM 140.5 mmol/L (137-145); TOTAL PROTEIN 8.1 g/dL (6.3-8.2)
[2018-07-06 19:02] LABS: APPEARANCE,URINE CLEAR; BILIRUBIN,URINE NEGATIVE (NEGATIVE); COLOR,URINE YELLOW; GLUCOSE, URINE NEGATIVE (NEGATIVE); KETONES,URINE TRACE mg/dL (NEGATIVE); LEUKOCYTE ESTERASE,URINE NEGATIVE (NEGATIVE); NITRITE,URINE NEGATIVE (NEGATIVE); PROTEIN,URINE NEGATIVE (NEGATIVE); URINE SPECIFIC GRAVITY 1.018
[2018-07-06] MEDS ORDERED: ONDANSETRON HCL INJ/PF 4 MG/2 ML SDV IV ONE ×2 (20:37→23:22)
[2018-07-06] MEDS ORDERED: LORAZEPAM INJ 2 MG/1 ML VIAL ONE (20:58)
--- NOTE | 2018-07-06 21:01 | RADIOLOGY REPORT (SQ) ---
EXAM DESCRIPTION: CT HEAD WITHOUT COMPLETED DATE/TIME: 07/06/2018 8:42 pm REASON FOR STUDY: seizure, LOC, hit head COMPARISON: 04/22/2017 TECHNIQUE: Axial images acquired through the brain without intravenous contrast. Images reviewed wi th bone, brain and subdural windows. Additional sagittal and coronal reconstructions were generated. Images stored on PACS. All CT scanners at this facility use dose modulation, iterative reconstruction, and/or weight based d osing when appropriate to reduce radiation dose to as low as reasonably achievable (ALARA). [facility]: Dose Right [facility]: CareDose [facility]: Dose Right [facility]: Teradose 4D [facility]: Smart CaseMetrix RADIATION DOSE: CT Rad equipment meets quality standard of care and radiation dose reduction techniq ues were employed. CTDIvol: 55.2 mGy. DLP: 1277 mGy-cm. mGy. LIMITATIONS: None. FINDINGS: VENTRICLES: Prominent ventricles secondary to involutional atrophy. CEREBRUM: Cortical atrophy is present. No masses. No hemorrhage. No midline shift. No evidence fo r acute infarction. Few scattered areas of low density in the white matter most likely chronic small vessel ischemic changes. CEREBELLUM: No masses. No hemorrhage. No alteration of density. No evidence for acute infarction. EXTRAAXIAL SPACES: No fluid collections. No masses. ORBITS AND GLOBE: No intra- or extraconal masses. Normal contour of globe without masses. CALVARIUM: No fracture. PARANASAL SINUSES: No fluid or mucosal thickening. SOFT TISSUES: No mass or hematoma. OTHER: No other significant finding. IMPRESSION: MICROVASCULAR ISCHEMIA AND GENERALIZED ATROPHY. NO ACUTE IMAGING FINDINGS IN THE BRAIN EVIDENCE OF ACUTE STROKE: NO. COMMENT: Quality ID # [id number]: Final reports with documentation of one or more dose reduction techniques (e.g., Automated exposure control, adjustment of the mA and/or kV according to patient size, use of iterative reconstruction technique) TECHNICAL DOCUMENTATION: JOB ID: [id number] [employer]- All Rights Reserved Reading location - IP/workstation name: GRANT
--- NOTE | 2018-07-06 22:15 | RADIOLOGY REPORT (SQ) ---
XR CHEST 1 VIEW HISTORY: SOB. COMPARISON: 04/26/2017 FINDINGS: The cardiomediastinal silhouette is unremarkable. The lungs are clear. No pleural effusion or pneumothorax is identified. No acute osseous findings are seen. IMPRESSION: No acute cardiopulmonary abnormality.
--- NOTE | 2018-07-06 22:41 | EKG REPORT ---
SEVERITY:- OTHERWISE NORMAL ECG - SINUS RHYTHM LEFT AXIS DEVIATION : Confirmed by: Annika Coppola 06-Jul-2018 22:40:36
[2018-07-06] MEDS ORDERED: LORAZEPAM 1 MG TABLET PO ONE (22:52)
[2018-07-06] MEDS ORDERED: IPRATROPIUM/ALBUTEROL 0.5-2.5 MG/3 ML AMPUL NEB PRN (23:13)
[2018-07-06] MEDS ORDERED: MAG HYDROX/AL HYDROX/SIMETH SUSP 30 ML UDCUP PO PRN (23:13)
[2018-07-06] MEDS ORDERED: LORAZEPAM INJ 2 MG/1 ML VIAL IV ONE (23:22)
[2018-07-07] MEDS: NORMAL SALINE 1000 ML 1,000 ML IV PRN ×2 (03:34→09:19)
[2018-07-07 05:31] LABS: ANION GAP 11 (5-19); BLOOD UREA NITROGEN 15 mg/dL (7-20); CALCIUM 8.8 mg/dL (8.4-10.2); CARBON DIOXIDE 31 mmol/L (22-30); CHLORIDE 99 mmol/L (98-107); GLUCOSE 97 mg/dL (75-110); SODIUM 140.6 mmol/L (137-145)
[2018-07-07 05:41] LABS: ABSOLUTE LYMPHOCYTES (AUTO) 0.4 10^3/uL (0.5-4.7); ABSOLUTE MONOCYTES (AUTO) 0.3 10^3/uL (0.1-1.4); ABSOLUTE NEUT (AUTO) 3.4 10^3/uL (1.7-8.2); BASOPHILS % (AUTO) 0.2 % (0-2); EOSINOPHILS % (AUTO) 0.2 % (0-6); HEMATOCRIT 29.6 % (37.9-51.0); HEMOGLOBIN 10.7 g/dL (13.5-17.0); LYMPHOCYTES % (AUTO) 9.8 % (13-45); MEAN CORPUSCULAR HGB CONC 36.3 g/dL (32.0-36.0); MEAN CORPUSCULAR VOLUME 91 fl (80-97); PLATELET COUNT 77 10^3/uL (150-450); RED BLOOD COUNT 3.26 10^6/uL (4.35-5.55); RED CELL DISTRIBUTION WIDTH 14.1 % (11.5-14.0); SEGMENTED NEUTROPHILS % (AUTO) 81.8 % (42-78); TOTAL CELLS COUNTED % (AUTO) 100 %; WHITE BLOOD COUNT 4.2 10^3/uL (4.0-10.5)
[2018-07-07] MEDS: HEPARIN SOD (PORCINE) 5,000 UNIT/ML 1 ML SYRINGE SUBCUT SCH ×3 (05:43→22:05)
[2018-07-07] MEDS ORDERED: LEVETIRACETAM 500 MG TABLET PO ONE (06:16)
[2018-07-07] MEDS: LEVETIRACETAM 500 MG TABLET PO SCH ×2 (06:37→17:51)
--- NOTE | 2018-07-07 06:50 | PDOC H&P ---
History of Present Illness Admission Date/PCP: 07/06/18 23:27 Patient complains of: Seizure History of Present Illness: SHON PAZ is a 62 year old male with a past medical history of diabetes , obstructive sleep apnea, dementia, hypertension, bipolar, traumatic brain injury and seizure disorder. Patient is a resident of the [facility] and noted by staff to have seizure-like activity prompting evaluation in the emergency room where he has a post ictal state followed by 3 more seizures, brief in nature with brief post ictal state resolving prior to IV benzodiazepine. He does receive IV Keppra loading without subsequent episode. His workup including CT head is unremarkable with exception to leukopenia of 2.8 and thrombocytopenia of 100. Patient is awake alert oriented x3 denying pain. Past Medical History Cardiac Medical History: Reports: Hypertension, Heart Murmur - As an adolescent( functional) Pulmonary Medical History: Reports: Sleep Apnea - Not on C-PAP currently Neurological Medical History: Reports: Seizures - 11/10 leading to TBI. on Keppra and Depakote Endocrine Medical History: Reports: Diabetes Mellitus Type 2 GI Medical History: Reports: Gastroesophageal Reflux Disease - No meds Psychiatric Medical History: Reports: Dementia - TBI, Depression Traumatic Medical History: Reports: Traumatic Brain Injury Past Surgical History Past Surgical History: Reports: Cholecystectomy, Tonsillectomy, Other - Colectomy for villous adenoma Social History Information Source: Patient, [facility], [facility] Records, Outside Facility Records Lives with: [facility] Smoking Status: Never Smoker Frequency of Alcohol Use: None Hx Recreational Drug Use: No Drugs: None Hx Prescription Drug Abuse: No - Advance Directive Resuscitation Status: Full Code Family History Family History: COPD Parental Family History Reviewed: Yes Children Family History Reviewed: Yes Sibling(s) Family History Reviewed.: Yes Medication/Allergy Home Medications: Citalopram Hydrobromide [Celexa 20 mg Tablet] 30 mg PO DAILY 04/26/17 Divalproex Sodium [Divalproex Sodium ER] 500 mg PO BID 04/26/17 Levetiracetam [Keppra 500 mg Tablet] 500 mg PO Q12 04/26/17 Lorazepam [Ativan 1 mg Tablet] 1 mg PO BID 04/26/17 Acetaminophen [Tylenol] 650 mg PO Q6 PRN 07/07/18 Cold Cream/Zinc Oxide/Star/Abram [Dermacloud Ointment] 1 dose TP PRN PRN 07/07/18 Guaifenesin [Robafen] 10 ml PO PRN PRN 07/07/18 Loperamide HCl [Anti-Diarrhea] 2 mg PO QID PRN 07/07/18 Magnesium Hydroxide [Milk of Magnesia 30 ml Udcup] 15 ml PO PRN PRN 07/07/18 Allergies/Adverse Reactions: clonazepam [From Klonopin] Allergy (Verified 04/21/17 23:26) Review of Systems Constitutional: ABSENT: chills, fever(s), headache(s), weight gain, weight loss Eyes: ABSENT: visual disturbances Ears: ABSENT: hearing changes Cardiovascular: ABSENT: chest pain, dyspnea on exertion, edema, orthropnea, palpitations Respiratory: ABSENT: cough, hemoptysis Gastrointestinal: ABSENT: abdominal pain, constipation, diarrhea, hematemesis, hematochezia, nausea, vomiting Genitourinary: ABSENT: dysuria, hematuria Musculoskeletal: ABSENT: joint swelling Integumentary: ABSENT: rash, wounds Neurological: ABSENT: abnormal gait, abnormal speech, confusion, dizziness, focal weakness, syncope Psychiatric: ABSENT: anxiety, depression, homidical ideation, suicidal ideation Endocrine: ABSENT: cold intolerance, heat intolerance, polydipsia, polyuria Hematologic/Lymphatic: ABSENT: easy bleeding, easy bruising Physical Exam Vital Signs: Temp Pulse Resp BP Pulse Ox 99.3 F 73 20 118/63 100 07/07/18 03:05 07/07/18 03:09 07/07/18 03:05 07/07/18 03:05 07/07/18 03:05 Intake & Output 07/05/18 07/06/18 07/07/18 11:59 11:59 11:59 Weight 54.7 kg General appearance: PRESENT: no acute distress, well-developed, well-nourished Head exam: PRESENT: atraumatic, normocephalic Eye exam: PRESENT: conjunctiva pink, EOMI, PERRLA. ABSENT: scleral icterus Ear exam: PRESENT: normal external ear exam Mouth exam: PRESENT: moist, tongue midline Neck exam: ABSENT: carotid bruit, JVD, lymphadenopathy, thyromegaly Respiratory exam: PRESENT: clear to auscultation carolyn. ABSENT: rales, rhonchi, wheezes Cardiovascular exam: PRESENT: RRR. ABSENT: diastolic murmur, rubs, systolic murmur Pulses: PRESENT: normal dorsalis pedis pul Vascular exam: PRESENT: normal capillary refill GI/Abdominal exam: PRESENT: normal bowel sounds, soft. ABSENT: distended, guarding, mass, organolmegaly, rebound, tenderness Rectal exam: PRESENT: deferred Extremities exam: PRESENT: full ROM. ABSENT: calf tenderness, clubbing, pedal edema Neurological exam: PRESENT: alert, awake, oriented to person, oriented to place , oriented to time, oriented to situation, CN II-XII grossly intact. ABSENT: motor sensory deficit Psychiatric exam: PRESENT: appropriate affect, normal mood. ABSENT: homicidal ideation, suicidal ideation Skin exam: PRESENT: dry, intact, warm. ABSENT: cyanosis, rash Results Laboratory Results: 07/07/18 04:06 07/07/18 04:06 07/07/18 07/07/18 04:06 04:06 WBC 4.2 RBC 3.26 L Hgb 10.7 L D Hct 29.6 L MCV 91 MCH 33.0 MCHC 36.3 H RDW 14.1 H Plt Count 77 L Seg Neutrophils % 81.8 H Lymphocytes % 9.8 L Monocytes % 8.0 Eosinophils % 0.2 Basophils % 0.2 Absolute Neutrophils 3.4 Absolute Lymphocytes 0.4 L Absolute Monocytes 0.3 Absolute Eosinophils 0.0 Absolute Basophils 0.0 Sodium 140.6 Potassium 4.0 Chloride 99 Carbon Dioxide 31 H Anion Gap 11 BUN 15 Creatinine 0.91 Est GFR ( Amer) > 60 Est GFR (Non-Af Amer) > 60 Glucose 97 Calcium 8.8 Impressions: Head CT 07/06/18 18:08 IMPRESSION: MICROVASCULAR ISCHEMIA AND GENERALIZED ATROPHY. NO ACUTE IMAGING FINDINGS IN THE BRAIN EVIDENCE OF ACUTE STROKE: NO. Chest X-Ray 07/06/18 20:42 IMPRESSION: No acute cardiopulmonary abnormality. Assessment & Plan - Diagnosis (1) Seizure Qualifiers: Convulsion type: unspecified Qualified Code(s): R56.9 - Unspecified convulsions Is this a current diagnosis for this admission?: Yes Plan: Likely subtherapeutic benzodiazepine or antiepileptic. Keppra loaded, continue outpatient regiment with telemetry monitoring. (2) Anemia Is this a current diagnosis for this admission?: Yes Plan: Follow-up anemia workup. (3) Benzodiazepine withdrawal Is this a current diagnosis for this admission?: Yes Plan: History of benzodiazepine withdrawal seizure. Obtain [facility] medication reconciliation. - Time Time Spent: 50 to 70 Minutes - Inpatient Certification Medical Necessity: Need Close Monitoring Due to Risk of Patient Decompensation
[2018-07-07 08:19] LABS: FOLATE 5.71 ng/mL (>2.76)
[2018-07-07 08:44] LABS: ABSOLUTE RETICS # 0.058 10^6/uL (0.028-0.122); RETICULOCYTE COUNT (AUTO) 1.81 % (0.66-2.85)
[2018-07-07 08:51] LABS: IRON(TIBC) 10.9 ug/dL (49-181)
[2018-07-07] MEDS: CITALOPRAM HYDROBROMIDE 20 MG TABLET PO SCH (09:19)
[2018-07-07] MEDS: LORAZEPAM 1 MG TABLET PO SCH ×2 (09:20→17:51)
[2018-07-07] MEDS: DIVALPROEX SODIUM 500 MG TAB.SR.24H PO SCH ×2 (09:20→17:51)
--- NOTE | 2018-07-07 19:53 | PDOC PROGRESS REPORT ---
Subjective Progress Note for:: 07/07/18 Subjective:: MR. PAZ is a 62 year old male with a past medical history of diabetes, obstructive sleep apnea, dementia, hypertension, bipolar, traumatic brain injury and seizure disorder. Patient is a resident of the [facility] and noted by staff to have seizure-like activity prompting evaluation in the emergency room where he has a post ictal state followed by 3 more seizures, brief in nature with brief post ictal state resolving prior to IV benzodiazepine. He was loaded with IV Keppra. Patient had one episode of tonic clonic seizure lasting for 30 seconds early this morning which resolved with ativan. No recurrence of seizure since then. Patient is currently asleep after ativan administration. No fever or any other acute event. Reason For Visit: SEIZURE Physical Exam Vital Signs: Temp Pulse Resp BP Pulse Ox 98.2 F 68 16 109/62 100 07/07/18 11:12 07/07/18 14:00 07/07/18 11:12 07/07/18 11:12 07/07/18 11:12 Intake & Output 07/06/18 07/07/18 07/08/18 06:59 06:59 06:59 Intake Total 1100 Output Total 100 Balance -100 1100 Weight 120 lb 9.486 oz General appearance: PRESENT: no acute distress, thin Head exam: PRESENT: atraumatic, normocephalic Eye exam: PRESENT: conjunctiva pink, EOMI, PERRLA. ABSENT: scleral icterus Ear exam: PRESENT: normal external ear exam Neck exam: ABSENT: carotid bruit, JVD, lymphadenopathy, thyromegaly Respiratory exam: PRESENT: clear to auscultation carolyn. ABSENT: rales, rhonchi, wheezes Cardiovascular exam: PRESENT: RRR. ABSENT: diastolic murmur, rubs, systolic murmur Pulses: PRESENT: normal dorsalis pedis pul GI/Abdominal exam: PRESENT: normal bowel sounds, soft. ABSENT: distended, guarding, mass, organolmegaly, rebound, tenderness Rectal exam: PRESENT: deferred Extremities exam: PRESENT: full ROM. ABSENT: calf tenderness, clubbing, pedal edema Neurological exam: PRESENT: other - asleep after ativan adminstration Results Laboratory Results: 07/07/18 04:06 07/07/18 04:06 07/07/18 07/07/18 07/07/18 04:06 04:06 04:06 WBC 4.2 RBC 3.26 L Hgb 10.7 L D Hct 29.6 L MCV 91 MCH 33.0 MCHC 36.3 H RDW 14.1 H Plt Count 77 L Seg Neutrophils % 81.8 H Lymphocytes % 9.8 L Monocytes % 8.0 Eosinophils % 0.2 Basophils % 0.2 Absolute Neutrophils 3.4 Absolute Lymphocytes 0.4 L Absolute Monocytes 0.3 Absolute Eosinophils 0.0 Absolute Basophils 0.0 Retic Count (auto) Cancelled Absolute Retic Cancelled Sodium 140.6 Potassium 4.0 Chloride 99 Carbon Dioxide 31 H Anion Gap 11 BUN 15 Creatinine 0.91 Est GFR ( Amer) > 60 Est GFR (Non-Af Amer) > 60 Glucose 97 Calcium 8.8 Iron TIBC % Saturation Ferritin Vitamin B12 Folate 07/07/18 07/07/18 07/07/18 04:06 08:28 08:28 WBC RBC Hgb Hct MCV MCH MCHC RDW Plt Count Seg Neutrophils % Lymphocytes % Monocytes % Eosinophils % Basophils % Absolute Neutrophils Absolute Lymphocytes Absolute Monocytes Absolute Eosinophils Absolute Basophils Retic Count (auto) 1.81 Absolute Retic 0.058 Sodium Potassium Chloride Carbon Dioxide Anion Gap BUN Creatinine Est GFR ( Amer) Est GFR (Non-Af Amer) Glucose Calcium Iron Cancelled 10.9 L TIBC Cancelled 255 % Saturation Cancelled 4 Ferritin 137.00 Vitamin B12 393.0 Folate 5.71 Impressions: Head CT 07/06/18 18:08 IMPRESSION: MICROVASCULAR ISCHEMIA AND GENERALIZED ATROPHY. NO ACUTE IMAGING FINDINGS IN THE BRAIN EVIDENCE OF ACUTE STROKE: NO. Chest X-Ray 07/06/18 20:42 IMPRESSION: No acute cardiopulmonary abnormality. Assessment & Plan - Diagnosis (1) Breakthrough seizure Is this a current diagnosis for this admission?: Yes Plan: Keppra has been increased to [address] head was negative. Keppra level pending. Continue ativan prn. - Time Time Spent with patient: 15-24 minutes
[2018-07-08] MEDS: HEPARIN SOD (PORCINE) 5,000 UNIT/ML 1 ML SYRINGE SUBCUT SCH (05:06)
[2018-07-08] MEDS: LEVETIRACETAM 500 MG TABLET PO SCH ×2 (05:07→17:57)
[2018-07-08 08:47] LABS: APPEARANCE,URINE SLIGHTLY-CLOUDY; BILIRUBIN,URINE NEGATIVE (NEGATIVE); COLOR,URINE YELLOW; GLUCOSE, URINE NEGATIVE (NEGATIVE); KETONES,URINE NEGATIVE (NEGATIVE); LEUKOCYTE ESTERASE,URINE TRACE (NEGATIVE); NITRITE,URINE NEGATIVE (NEGATIVE); PROTEIN,URINE NEGATIVE (NEGATIVE); URINE SPECIFIC GRAVITY 1.016
[2018-07-08] MEDS ORDERED: TAMSULOSIN HCL 0.4 MG CAP.SR.24H PO ONE (09:00)
[2018-07-08] MEDS: CITALOPRAM HYDROBROMIDE 20 MG TABLET PO SCH (10:04)
[2018-07-08] MEDS: DIVALPROEX SODIUM 500 MG TAB.SR.24H PO SCH ×2 (10:05→22:04)
[2018-07-08] MEDS: LORAZEPAM 1 MG TABLET PO SCH ×2 (10:05→22:04)
--- NOTE | 2018-07-08 13:20 | PDOC PROGRESS REPORT ---
Subjective Progress Note for:: 07/08/18 Subjective:: MR. PAZ is a 62 year old male with a past medical history of diabetes, obstructive sleep apnea, dementia, hypertension, bipolar, traumatic brain injury and seizure disorder. Patient is a resident of the [facility] and was noted by staff to have seizure-like activity prompting evaluation in the emergency room where he has a post ictal state followed by 3 more seizures, brief in nature with brief post ictal state resolving prior to IV benzodiazepine. He was loaded with IV Keppra. Patient had one episode of tonic clonic seizure lasting for 30 seconds yesterday morning which resolved with ativan. No recurrence of seizure since then. Patient had acute urinary retention last night with 750 cc of urine output on straight catheterization. This morning, he is fully awake and coherent. He is oriented to person, place and time. He says he cannot remember what happened before he was brought in. He says he has not had a seizure for the past several months but is unable to tell me a definite timeline. He denies headache or dizziness. No fever or chills. Reason For Visit: SEIZURE Physical Exam Vital Signs: Temp Pulse Resp BP Pulse Ox 97.8 F 59 L 18 124/64 100 07/08/18 11:47 07/08/18 11:47 07/08/18 11:47 07/08/18 11:47 07/08/18 11:47 Intake & Output 07/07/18 07/08/18 07/09/18 06:59 06:59 06:59 Intake Total 1490 355 Output Total 554 907 0568 Balance -100 1203 -965 Weight 54.7 kg 56.7 kg General appearance: PRESENT: no acute distress, well-developed, well-nourished Head exam: PRESENT: atraumatic, normocephalic Eye exam: PRESENT: conjunctiva pink, EOMI, PERRLA. ABSENT: scleral icterus Ear exam: PRESENT: normal external ear exam Mouth exam: PRESENT: moist, tongue midline Neck exam: ABSENT: carotid bruit, JVD, lymphadenopathy, thyromegaly Respiratory exam: PRESENT: clear to auscultation carolyn. ABSENT: rales, rhonchi, wheezes Cardiovascular exam: PRESENT: RRR. ABSENT: diastolic murmur, rubs, systolic murmur Pulses: PRESENT: normal dorsalis pedis pul GI/Abdominal exam: PRESENT: normal bowel sounds, soft. ABSENT: distended, guarding, mass, organolmegaly, rebound, tenderness Rectal exam: PRESENT: deferred Neurological exam: PRESENT: alert, awake, oriented to person, oriented to place , oriented to time, oriented to situation, CN II-XII grossly intact. ABSENT: motor sensory deficit Results Laboratory Results: 07/07/18 04:06 07/07/18 04:06 07/08/18 08:25 Urine Color YELLOW Urine Appearance SLIGHTLY-CLOUDY Urine pH 6.0 Ur Specific [place] 1.016 Urine Protein NEGATIVE Urine Glucose (UA) NEGATIVE Urine Ketones NEGATIVE Urine Blood LARGE H Urine Nitrite NEGATIVE Ur Leukocyte Esterase TRACE H Urine WBC (Auto) 53 Urine RBC (Auto) 83 Impressions: Head CT 07/06/18 18:08 IMPRESSION: MICROVASCULAR ISCHEMIA AND GENERALIZED ATROPHY. NO ACUTE IMAGING FINDINGS IN THE BRAIN EVIDENCE OF ACUTE STROKE: NO. Chest X-Ray 07/06/18 20:42 IMPRESSION: No acute cardiopulmonary abnormality. Assessment & Plan - Diagnosis (1) Breakthrough seizure Is this a current diagnosis for this admission?: Yes Plan: Continue Keppra at [address] head was negative. Keppra level still pending. Continue ativan prn. He will likely be discharged if patient contunues to be seizure-free in the next 24 hrs.
--- NOTE | 2018-07-08 14:27 | PDOC PROGRESS REPORT ---
Subjective Progress Note for:: 07/08/18 Subjective:: MR. PAZ is a 62 year old male with a past medical history of diabetes, obstructive sleep apnea, dementia, hypertension, bipolar, traumatic brain injury and seizure disorder. Patient is a resident of the [facility] and was noted by staff to have seizure-like activity prompting evaluation in the emergency room where he has a post ictal state followed by 3 more seizures, brief in nature with brief post ictal state resolving prior to IV benzodiazepine. He was loaded with IV Keppra. Patient had one episode of tonic clonic seizure lasting for 30 seconds yesterday morning which resolved with ativan. No recurrence of seizure since then. Patient had acute urinary retention last night with 750 cc of urine output on straight catheterization. This morning, he is fully awake and coherent. He is oriented to person, place and time. He says he cannot remember what happened before he was brought in. He says he has not had a seizure for the past several months but is unable to tell me a definite timeline. He denies headache or dizziness. No fever or chills. Reason For Visit: SEIZURE Physical Exam Vital Signs: Temp Pulse Resp BP Pulse Ox 97.8 F 55 L 14 124/64 97 07/08/18 11:47 07/08/18 13:26 07/08/18 13:26 07/08/18 11:47 07/08/18 13:26 Intake & Output 07/07/18 07/08/18 07/09/18 06:59 06:59 06:59 Intake Total 1490 355 Output Total 874 157 4250 Balance -100 1203 -965 Weight 120 lb 9.486 oz 125 lb 0.034 oz General appearance: PRESENT: no acute distress, well-developed, well-nourished Head exam: PRESENT: atraumatic, normocephalic Eye exam: PRESENT: conjunctiva pink, EOMI, PERRLA. ABSENT: scleral icterus Ear exam: PRESENT: normal external ear exam Mouth exam: PRESENT: moist, tongue midline Neck exam: ABSENT: carotid bruit, JVD, lymphadenopathy, thyromegaly Respiratory exam: PRESENT: clear to auscultation carolyn. ABSENT: rales, rhonchi, wheezes Cardiovascular exam: PRESENT: RRR. ABSENT: diastolic murmur, rubs, systolic murmur Pulses: PRESENT: normal dorsalis pedis pul GI/Abdominal exam: PRESENT: normal bowel sounds, soft. ABSENT: distended, guarding, mass, organolmegaly, rebound, tenderness Rectal exam: PRESENT: deferred Neurological exam: PRESENT: alert, awake, oriented to person, oriented to place , oriented to time, oriented to situation, CN II-XII grossly intact. ABSENT: motor sensory deficit Results Laboratory Results: 07/07/18 04:06 07/07/18 04:06 07/08/18 08:25 Urine Color YELLOW Urine Appearance SLIGHTLY-CLOUDY Urine pH 6.0 Ur Specific [place] 1.016 Urine Protein NEGATIVE Urine Glucose (UA) NEGATIVE Urine Ketones NEGATIVE Urine Blood LARGE H Urine Nitrite NEGATIVE Ur Leukocyte Esterase TRACE H Urine WBC (Auto) 53 Urine RBC (Auto) 83 Impressions: Head CT 07/06/18 18:08 IMPRESSION: MICROVASCULAR ISCHEMIA AND GENERALIZED ATROPHY. NO ACUTE IMAGING FINDINGS IN THE BRAIN EVIDENCE OF ACUTE STROKE: NO. Chest X-Ray 07/06/18 20:42 IMPRESSION: No acute cardiopulmonary abnormality. Assessment & Plan - Diagnosis (1) Breakthrough seizure Is this a current diagnosis for this admission?: Yes Plan: Continue Keppra at [address] head was negative. Keppra level still pending. Continue ativan prn. He will likely be discharged if patient contunues to be seizure-free in the next 24 hrs. (2) Acute urinary retention Is this a current diagnosis for this admission?: Yes Plan: Continue bladder scan monitoring and straight cath as needed. Will start Flomax. UA is consistent UTI. Will start Rocephin. Will also order US to evaluate for obstructive cause including BPH. (3) UTI (urinary tract infection) Is this a current diagnosis for this admission?: Yes Plan: IV Rocephin. Urine culture pending. - Time Time Spent with patient: 15-24 minutes
[2018-07-08] MEDS ORDERED: CEFTRIAXONE 1 GM/D5W RTU 1 GM/50 ML RTUPB IV SCH (17:00)
--- NOTE | 2018-07-08 17:55 | RADIOLOGY REPORT (SQ) ---
EXAM DESCRIPTION: U/S RETROPERITON (RENAL/AORTA) COMPLETED DATE/TIME: 07/08/2018 5:35 pm REASON FOR STUDY: assess for stone/obstruction and BPH COMPARISON: None. TECHNIQUE: Dynamic and static grayscale images acquired of the kidneys and bladder and recorded on P ACS. Additional selected color Doppler and spectral images recorded. LIMITATIONS: None. FINDINGS: RIGHT KIDNEY: Normal size. Normal echogenicity. No solid or suspicious masses. No hydronep hrosis. No calcifications. LEFT KIDNEY: Normal size. Normal echogenicity. No solid or suspicious masses. No hydronephrosis. No calcifications. BLADDER: No masses. OTHER FINDINGS: The prostate 5 cm. IMPRESSION: NORMAL RENAL AND BLADDER ULTRASOUND. TECHNICAL DOCUMENTATION: JOB ID: [id number] [employer]- All Rights Reserved Reading location - IP/workstation name: [email or web address]
[2018-07-08] MEDS: CEFTRIAXONE SODIUM 1,000 MG in DEXTROSE 5%-WATER 50 ML IV SCH (17:57)
[2018-07-09] MEDS: LEVETIRACETAM 500 MG TABLET PO SCH ×2 (05:53→17:22)
[2018-07-09] MEDS: CITALOPRAM HYDROBROMIDE 20 MG TABLET PO SCH (09:27)
[2018-07-09] MEDS: DIVALPROEX SODIUM 500 MG TAB.SR.24H PO SCH ×2 (09:27→21:37)
[2018-07-09] MEDS: LORAZEPAM 1 MG TABLET PO SCH ×2 (09:27→21:38)
[2018-07-09] MEDS: TAMSULOSIN HCL 0.4 MG CAP.SR.24H PO SCH (09:27)
--- NOTE | 2018-07-09 10:54 | EKG REPORT ---
SEVERITY:- OTHERWISE NORMAL ECG - SINUS RHYTHM LEFT AXIS DEVIATION LOW VOLTAGE IN FRONTAL LEADS : Confirmed by: Annika Coppola 09-Jul-2018 10:53:18
--- NOTE | 2018-07-09 15:25 | PDOC PROGRESS REPORT ---
Subjective Progress Note for:: 07/09/18 Subjective:: MR. PAZ is a 62 year old male with a past medical history of diabetes, obstructive sleep apnea, dementia, hypertension, bipolar, traumatic brain injury and seizure disorder. Patient is a resident of the [facility] and was noted by staff to have seizure-like activity prompting evaluation in the emergency room where he has a post ictal state followed by 3 more seizures, brief in nature with brief post ictal state resolving prior to IV benzodiazepine. He was loaded with IV Keppra. Patient had one episode of tonic clonic seizure lasting for 30 seconds yesterday morning which resolved with ativan. No recurrence of seizure since then. Patient had acute urinary retention on 07/07/18 requiring intermittent straight catheterization. He continued to have urinary retention overnight and had to be get a straight cath. He is oriented to person, place and time. No recurrence of seizure. He says he has not had a seizure for the past several months but is unable to tell me a definite timeline. He denies headache or dizziness. No fever or chills. Reason For Visit: SEIZURE Physical Exam Vital Signs: Temp Pulse Resp BP Pulse Ox 98.4 F 68 17 119/72 100 07/09/18 11:48 07/09/18 11:48 07/09/18 11:48 07/09/18 11:48 07/09/18 11:48 Intake & Output 07/08/18 07/09/18 07/10/18 06:59 06:59 06:59 Intake Total 1490 1405 828 Output Total 287 2520 0 Balance 1203 -1115 828 Weight 125 lb 0.034 oz 124 lb 12.506 oz General appearance: PRESENT: no acute distress, well-developed, well-nourished Head exam: PRESENT: atraumatic, normocephalic Eye exam: PRESENT: conjunctiva pink, EOMI, PERRLA. ABSENT: scleral icterus Ear exam: PRESENT: normal external ear exam Mouth exam: PRESENT: moist, tongue midline Neck exam: ABSENT: carotid bruit, JVD, lymphadenopathy, thyromegaly Respiratory exam: PRESENT: clear to auscultation carolyn. ABSENT: rales, rhonchi, wheezes Cardiovascular exam: PRESENT: RRR. ABSENT: diastolic murmur, rubs, systolic murmur Pulses: PRESENT: normal dorsalis pedis pul GI/Abdominal exam: PRESENT: normal bowel sounds, soft. ABSENT: distended, guarding, mass, organolmegaly, rebound, tenderness Rectal exam: PRESENT: deferred Neurological exam: PRESENT: alert, awake, oriented to person, oriented to place , oriented to time, oriented to situation, CN II-XII grossly intact. ABSENT: motor sensory deficit Results Laboratory Results: 07/07/18 04:06 07/07/18 04:06 Impressions: Head CT 07/06/18 18:08 IMPRESSION: MICROVASCULAR ISCHEMIA AND GENERALIZED ATROPHY. NO ACUTE IMAGING FINDINGS IN THE BRAIN EVIDENCE OF ACUTE STROKE: NO. Chest X-Ray 07/06/18 20:42 IMPRESSION: No acute cardiopulmonary abnormality. Renal Ultrasound 07/08/18 16:27 IMPRESSION: NORMAL RENAL AND BLADDER ULTRASOUND. Assessment & Plan - Diagnosis (1) Breakthrough seizure Is this a current diagnosis for this admission?: Yes Plan: Continue Keppra at [address] head was negative. Keppra level still pending. Continue ativan PO (home medication). No recurrence of seizure so far. (2) Acute urinary retention Is this a current diagnosis for this admission?: Yes Plan: Patient continues to have urinary retention requiring straight caths. Continue bladder scan monitoring and straight cath as needed. Flomax started yesterday . UA is consistent UTI. Rocephin started. (3) UTI (urinary tract infection) Is this a current diagnosis for this admission?: Yes Plan: IV Rocephin. Urine culture pending.
[2018-07-09] MEDS: CEFTRIAXONE SODIUM 1,000 MG in DEXTROSE 5%-WATER 50 ML IV SCH (17:27)
[2018-07-09] MEDS ORDERED: FINASTERIDE 5 MG TABLET PO ONE (18:50)
[2018-07-10] MEDS: LEVETIRACETAM 500 MG TABLET PO SCH ×2 (05:52→17:24)
[2018-07-10] MEDS: TAMSULOSIN HCL 0.4 MG CAP.SR.24H PO SCH (10:11)
[2018-07-10] MEDS: DIVALPROEX SODIUM 500 MG TAB.SR.24H PO SCH ×2 (10:11→21:17)
[2018-07-10] MEDS: LORAZEPAM 1 MG TABLET PO SCH ×2 (10:11→21:17)
[2018-07-10] MEDS: CITALOPRAM HYDROBROMIDE 20 MG TABLET PO SCH (10:12)
[2018-07-10 16:40] LABS: ABSOLUTE EOSINOPHILS # (AUTO) 0.1 10^3/uL (0.0-0.6); ABSOLUTE LYMPHOCYTES (AUTO) 1.5 10^3/uL (0.5-4.7); ABSOLUTE MONOCYTES (AUTO) 0.5 10^3/uL (0.1-1.4); ABSOLUTE NEUT (AUTO) 2.7 10^3/uL (1.7-8.2); BASOPHILS % (AUTO) 0.4 % (0-2); EOSINOPHILS % (AUTO) 2.3 % (0-6); HEMATOCRIT 31.2 % (37.9-51.0); HEMOGLOBIN 11.3 g/dL (13.5-17.0); LYMPHOCYTES % (AUTO) 31.1 % (13-45); MEAN CORPUSCULAR HEMOGLOBIN 33.4 pg (27.0-33.4); MEAN CORPUSCULAR HGB CONC 36.1 g/dL (32.0-36.0); MEAN CORPUSCULAR VOLUME 92 fl (80-97); MONOCYTES % (AUTO) 11.2 % (3-13); RED BLOOD COUNT 3.38 10^6/uL (4.35-5.55); RED CELL DISTRIBUTION WIDTH 13.6 % (11.5-14.0); TOTAL CELLS COUNTED % (AUTO) 100 %; WHITE BLOOD COUNT 4.8 10^3/uL (4.0-10.5)
[2018-07-10 16:45] LABS: PLATELET COUNT 92 10^3/uL (150-450)
[2018-07-10 17:10] LABS: ANION GAP 8 (5-19); BLOOD UREA NITROGEN 16 mg/dL (7-20); CALCIUM 8.6 mg/dL (8.4-10.2); CARBON DIOXIDE 32 mmol/L (22-30); CHLORIDE 102 mmol/L (98-107); GLUCOSE 101 mg/dL (75-110); POTASSIUM 3.7 mmol/L (3.6-5.0); SODIUM 142.1 mmol/L (137-145)
[2018-07-10] MEDS: CEFTRIAXONE SODIUM 1,000 MG in DEXTROSE 5%-WATER 50 ML IV SCH (17:25)
--- NOTE | 2018-07-10 17:54 | PDOC PROGRESS REPORT ---
Subjective Progress Note for:: 07/10/18 Subjective:: MR. PAZ is a 62 year old male with a past medical history of diabetes, obstructive sleep apnea, dementia, hypertension, bipolar, traumatic brain injury and seizure disorder. Patient is a resident of the [facility] and was noted by staff to have seizure-like activity prompting evaluation in the emergency room where he has a post ictal state followed by 3 more seizures, brief in nature with brief post ictal state resolving prior to IV benzodiazepine. He was loaded with IV Keppra. Patient had acute urinary retention on 07/07/18 requiring intermittent straight catheterization. He continued to have urinary retention and required straight cath. He is oriented to person, place and time. No recurrence of seizure. He says he has not had a seizure for the past several months but is unable to tell me a definite timeline. He denies headache or dizziness. No fever or chills. Did straight cath on patient on bedside. There is some resistance on insertion and had to use a Coude cath. Insertion was less difficult with Coude. JIMY done on bedside, patient does have prominent, firm prostate with no palpable prostate mass or nodule. No blood on EF. Patient does say he has been having issues with urinary hesitancy for a year now. Reason For Visit: SEIZURE Physical Exam Vital Signs: Temp Pulse Resp BP Pulse Ox 98.3 F 80 18 125/83 100 07/10/18 15:11 07/10/18 15:11 07/10/18 15:11 07/10/18 15:11 07/10/18 15:11 Intake & Output 07/09/18 07/10/18 07/11/18 06:59 06:59 06:59 Intake Total 1405 1352 300 Output Total 2520 1989 Balance -1116 -498 300 Weight 124 lb 12.506 oz 126 lb 8.725 oz General appearance: PRESENT: no acute distress, well-developed, well-nourished Head exam: PRESENT: atraumatic, normocephalic Eye exam: PRESENT: conjunctiva pink, EOMI, PERRLA. ABSENT: scleral icterus Ear exam: PRESENT: normal external ear exam Mouth exam: PRESENT: moist, tongue midline Neck exam: ABSENT: carotid bruit, JVD, lymphadenopathy, thyromegaly Respiratory exam: PRESENT: clear to auscultation carolyn. ABSENT: rales, rhonchi, wheezes Cardiovascular exam: PRESENT: RRR. ABSENT: diastolic murmur, rubs, systolic murmur Pulses: PRESENT: normal dorsalis pedis pul GI/Abdominal exam: PRESENT: normal bowel sounds, soft. ABSENT: distended, guarding, mass, organolmegaly, rebound, tenderness Rectal exam: PRESENT: deferred Neurological exam: PRESENT: alert, awake, oriented to person, oriented to place , oriented to time, oriented to situation, CN II-XII grossly intact. ABSENT: motor sensory deficit Results Laboratory Results: 07/10/18 16:00 07/10/18 16:00 07/10/18 07/10/18 16:00 16:00 WBC 4.8 RBC 3.38 L Hgb 11.3 L Hct 31.2 L MCV 92 MCH 33.4 MCHC 36.1 H RDW 13.6 Plt Count 92 L Seg Neutrophils % 55.0 Lymphocytes % 31.1 Monocytes % 11.2 Eosinophils % 2.3 Basophils % 0.4 Absolute Neutrophils 2.7 Absolute Lymphocytes 1.5 Absolute Monocytes 0.5 Absolute Eosinophils 0.1 Absolute Basophils 0.0 Sodium 142.1 Potassium 3.7 Chloride 102 Carbon Dioxide 32 H Anion Gap 8 BUN 16 Creatinine 0.79 Est GFR ( Amer) > 60 Est GFR (Non-Af Amer) > 60 Glucose 101 Calcium 8.6 Prostate Specific Ag 10.500 H 07/08/18 08:25 Clean Catch Midstream Urine Culture - Final Staph Coagulase Negative Impressions: Head CT 07/06/18 18:08 IMPRESSION: MICROVASCULAR ISCHEMIA AND GENERALIZED ATROPHY. NO ACUTE IMAGING FINDINGS IN THE BRAIN EVIDENCE OF ACUTE STROKE: NO. Chest X-Ray 07/06/18 20:42 IMPRESSION: No acute cardiopulmonary abnormality. Renal Ultrasound 07/08/18 16:27 IMPRESSION: NORMAL RENAL AND BLADDER ULTRASOUND. Assessment & Plan - Diagnosis (1) Breakthrough seizure Is this a current diagnosis for this admission?: Yes Plan: Continue Keppra at [address] head was negative. Keppra level still pending. Continue ativan PO (home medication). No recurrence of seizure so far. (2) Acute urinary retention Is this a current diagnosis for this admission?: Yes Plan: Patient continues to have urinary retention requiring straight caths. Continue bladder scan monitoring and straight cath as needed. Flomax started on 07/08/18. UA is consistent UTI. Rocephin started. JIMY done and patient does have prominent, firm prostate with no palpable prostate mass or nodule. Patient does have chronic issues with urinary hesitancy. His acute urinary retention is likely a multifactorial from UTI, ? BPH and medications. Patient did receive multiple doses of IV ativan for his seizures on admission. He is also on PO ativan. Ativan does cause increase risk of urinary retention is certain people. Will give patient urology referral outpatient for urodynamic study and further recommendations as we don't have urology in house. Patient will require intermitted straight cath until he sees urology. Patient unfortunately lives at [facility] assisted living and they are not able to take back patients requiring straight catheterizations. (3) UTI (urinary tract infection) Is this a current diagnosis for this admission?: Yes Plan: On Rocephin. - Time Time Spent with patient: 15-24 minutes
[2018-07-10] MEDS: ACETAMINOPHEN 325 MG TABLET PO PRN (22:14)
[2018-07-11] MEDS: LEVETIRACETAM 500 MG TABLET PO SCH ×2 (05:29→17:37)
[2018-07-11] MEDS: DIVALPROEX SODIUM 500 MG TAB.SR.24H PO SCH ×2 (10:16→21:24)
[2018-07-11] MEDS: CITALOPRAM HYDROBROMIDE 20 MG TABLET PO SCH (10:17)
[2018-07-11] MEDS: LORAZEPAM 1 MG TABLET PO SCH ×2 (10:17→21:24)
[2018-07-11] MEDS: TAMSULOSIN HCL 0.4 MG CAP.SR.24H PO SCH (10:17)
--- NOTE | 2018-07-11 13:50 | PDOC DISCHARGE SUMMARY ---
General - Admit/Disc Date/PCP Admission Date/Primary Care Provider: 07/06/18 23:27 Discharge Date: 07/11/18 - Discharge Diagnosis (1) Acute urinary retention Is this a current diagnosis for this admission?: Yes (2) Breakthrough seizure Is this a current diagnosis for this admission?: Yes - Additional Information Resuscitation Status: Full Code Discharge Diet: As Tolerated Discharge Activity: Activity As Tolerated Home Medications: Citalopram Hydrobromide [Celexa 20 mg Tablet] 30 mg PO DAILY 04/26/17 Divalproex Sodium [Divalproex Sodium ER] 500 mg PO Q12 04/26/17 Levetiracetam [Keppra 500 mg Tablet] 500 mg PO Q12 04/26/17 Lorazepam [Ativan 1 mg Tablet] 1 mg PO Q12 04/26/17 Acetaminophen [Tylenol] 650 mg PO Q6HP PRN 07/07/18 Cold Cream/Zinc Oxide/Star/Abram [Dermacloud Ointment] 1 dose TP PRN PRN 07/07/18 Guaifenesin [Robafen] 10 ml PO Q4HP PRN 07/07/18 Loperamide HCl [Anti-Diarrhea] 2 mg PO QIDP PRN MDD 8MG 07/07/18 Magnesium Hydroxide [Milk of Magnesia 30 ml Udcup] 30 ml PO PRN PRN MDD 60ML 02/15 Tamsulosin HCl [Flomax 0.4 mg Cap.sr] 0.4 mg PO DAILY cap.sr.24h 07/11/18 History of Present Illness History of Present Illness: SHON PAZ is a 62 year old male with a past medical history of diabetes , obstructive sleep apnea, dementia, hypertension, bipolar, traumatic brain injury and seizure disorder. Patient is a resident of the [facility] residential facility and noted by staff to have seizure-like activity prompting evaluation in the emergency room where he has a post ictal state followed by 3 more seizures, brief in nature with brief post ictal state resolving prior to IV benzodiazepine. He does receive IV Keppra loading without subsequent episode. His workup including CT head is unremarkable with exception to leukopenia of 2.8 and thrombocytopenia of 100. Patient is awake alert oriented x3 denying pain. Hospital Course Hospital Course: Breakthrough seizure Continue Keppra at [address] head was negative. Continue ativan PO (home medication). No recurrence of seizure during hospitalization. Acute urinary retention Put Stearns catheter. Follow-up outpatient with urology. His PSA is elevated but he had a prostate exam and multiple intermittent catheterizations. He needs follow-up with urology anyway. UTI (urinary tract infection) Finished IV Rocephin in the hospital. Physical Exam Vital Signs: Temp Pulse Resp BP Pulse Ox 98.1 F 72 16 118/68 100 07/11/18 11:45 07/11/18 11:45 07/11/18 11:45 07/11/18 11:45 07/11/18 11:45 Intake & Output 07/10/18 07/11/18 07/12/18 06:59 06:59 06:59 Intake Total 1352 587 413 Output Total 1989 1100 Balance -638 -513 413 Weight 126 lb 8.725 oz 127 lb 10.362 oz General appearance: PRESENT: no acute distress, cooperative Head exam: PRESENT: atraumatic Eye exam: PRESENT: EOMI. ABSENT: conjunctival injection Ear exam: ABSENT: bleeding Mouth exam: PRESENT: neck supple Neck exam: ABSENT: meningismus Respiratory exam: PRESENT: clear to auscultation carolyn. ABSENT: accessory muscle use Cardiovascular exam: PRESENT: RRR Pulses: PRESENT: normal carotid pulses GI/Abdominal exam: ABSENT: ascites, tenderness Rectal exam: PRESENT: deferred Neurological exam: PRESENT: alert, awake Results Laboratory Results: 07/10/18 16:00 07/10/18 16:00 07/10/18 07/10/18 16:00 16:00 WBC 4.8 RBC 3.38 L Hgb 11.3 L Hct 31.2 L MCV 92 MCH 33.4 MCHC 36.1 H RDW 13.6 Plt Count 92 L Seg Neutrophils % 55.0 Lymphocytes % 31.1 Monocytes % 11.2 Eosinophils % 2.3 Basophils % 0.4 Absolute Neutrophils 2.7 Absolute Lymphocytes 1.5 Absolute Monocytes 0.5 Absolute Eosinophils 0.1 Absolute Basophils 0.0 Sodium 142.1 Potassium 3.7 Chloride 102 Carbon Dioxide 32 H Anion Gap 8 BUN 16 Creatinine 0.79 Est GFR ( Amer) > 60 Est GFR (Non-Af Amer) > 60 Glucose 101 Calcium 8.6 Prostate Specific Ag 10.500 H 07/08/18 08:25 Clean Catch Midstream Urine Culture - Final Staph Coagulase Negative Impressions: Head CT 07/06/18 18:08 IMPRESSION: MICROVASCULAR ISCHEMIA AND GENERALIZED ATROPHY. NO ACUTE IMAGING FINDINGS IN THE BRAIN EVIDENCE OF ACUTE STROKE: NO. Chest X-Ray 07/06/18 20:42 IMPRESSION: No acute cardiopulmonary abnormality. Renal Ultrasound 07/08/18 16:27 IMPRESSION: NORMAL RENAL AND BLADDER ULTRASOUND. Qualifiers - * PATIENT BEING DISCHARGED WITH ANY OF THE FOLLOWING DIAGNOSIS: No
[2018-07-11] MEDS: CEFTRIAXONE SODIUM 1,000 MG in DEXTROSE 5%-WATER 50 ML IV SCH (17:31)
[2018-07-12] MEDS ORDERED: DOCUSATE SODIUM 100 MG CAPSULE PO ONE (03:00)
[2018-07-12] MEDS: LEVETIRACETAM 500 MG TABLET PO SCH ×2 (05:28→18:49)
[2018-07-12] MEDS: DIVALPROEX SODIUM 500 MG TAB.SR.24H PO SCH ×2 (09:03→21:18)
[2018-07-12] MEDS: DOCUSATE SODIUM 100 MG CAPSULE PO SCH ×2 (09:03→18:52)
[2018-07-12] MEDS: CITALOPRAM HYDROBROMIDE 20 MG TABLET PO SCH (09:03)
[2018-07-12] MEDS: LORAZEPAM 1 MG TABLET PO SCH ×2 (09:04→21:19)
[2018-07-12] MEDS: TAMSULOSIN HCL 0.4 MG CAP.SR.24H PO SCH (09:04)
[2018-07-12] MEDS: CEFTRIAXONE SODIUM 1,000 MG in DEXTROSE 5%-WATER 50 ML IV SCH (18:48)
[2018-07-13] MEDS: ACETAMINOPHEN 325 MG TABLET PO PRN ×2 (02:40→20:00)
[2018-07-13] MEDS ORDERED: TRAZODONE HCL 50 MG TABLET PO ONE (03:00)
[2018-07-13] MEDS: LEVETIRACETAM 500 MG TABLET PO SCH ×2 (05:03→18:08)
[2018-07-13] MEDS: DOCUSATE SODIUM 100 MG CAPSULE PO SCH ×2 (09:40→18:08)
[2018-07-13] MEDS: DIVALPROEX SODIUM 500 MG TAB.SR.24H PO SCH ×2 (09:40→21:39)
[2018-07-13] MEDS: LORAZEPAM 1 MG TABLET PO SCH ×2 (09:40→21:38)
[2018-07-13] MEDS: TAMSULOSIN HCL 0.4 MG CAP.SR.24H PO SCH (09:40)
[2018-07-13] MEDS: CITALOPRAM HYDROBROMIDE 20 MG TABLET PO SCH (09:40)
--- NOTE | 2018-07-13 16:05 | Progress Note ---
Provider Note Provider Note: This patient was discharged on July 11, 2018. 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 I went to check on him today. He appears comfortable. Things are stable. Once the issues of discharge from the case management side are resolved he can be discharged at any time from my point of view. Continue same care and same discharge plan.
[2018-07-13] MEDS: CEFTRIAXONE SODIUM 1,000 MG in DEXTROSE 5%-WATER 50 ML IV SCH (18:09)
[2018-07-14] MEDS: LEVETIRACETAM 500 MG TABLET PO SCH ×2 (05:02→17:26)
[2018-07-14] MEDS: LORAZEPAM 1 MG TABLET PO SCH ×2 (11:16→21:25)
[2018-07-14] MEDS: CITALOPRAM HYDROBROMIDE 20 MG TABLET PO SCH (11:17)
[2018-07-14] MEDS: DOCUSATE SODIUM 100 MG CAPSULE PO SCH ×2 (11:18→17:26)
[2018-07-14] MEDS: TAMSULOSIN HCL 0.4 MG CAP.SR.24H PO SCH (11:19)
[2018-07-14] MEDS: DIVALPROEX SODIUM 500 MG TAB.SR.24H PO SCH ×2 (11:19→21:25)
--- NOTE | 2018-07-14 15:08 | Progress Note ---
Provider Note Provider Note: Patient is resting in bed comfortable no acute problems Patient appears in no acute distress Head is atraumatic Normal respiratory effort No facial droop Patient has not had any seizures so far Vital signs are stable Continue his Stearns catheter and follow-up with urology Continue his current medications Discharge when barriers are resolved from case management He has been stable for many days now from my point for discharge or transfer
[2018-07-14] MEDS: ACETAMINOPHEN 325 MG TABLET PO PRN (17:25)
[2018-07-14] MEDS: CEFTRIAXONE SODIUM 1,000 MG in DEXTROSE 5%-WATER 50 ML IV SCH (17:26)
[2018-07-15] MEDS: ACETAMINOPHEN 325 MG TABLET PO PRN ×2 (04:00→19:28)
[2018-07-15] MEDS: LEVETIRACETAM 500 MG TABLET PO SCH ×2 (06:55→18:09)
[2018-07-15] MEDS: LORAZEPAM 1 MG TABLET PO SCH ×2 (09:11→21:11)
[2018-07-15] MEDS: TAMSULOSIN HCL 0.4 MG CAP.SR.24H PO SCH (09:11)
[2018-07-15] MEDS: DOCUSATE SODIUM 100 MG CAPSULE PO SCH ×2 (09:11→18:09)
[2018-07-15] MEDS: CITALOPRAM HYDROBROMIDE 20 MG TABLET PO SCH (09:11)
[2018-07-15] MEDS: DIVALPROEX SODIUM 500 MG TAB.SR.24H PO SCH ×2 (09:11→21:11)
[2018-07-16] MEDS: ACETAMINOPHEN 325 MG TABLET PO PRN ×3 (02:35→23:35)
[2018-07-16] MEDS: LEVETIRACETAM 500 MG TABLET PO SCH ×2 (06:22→17:15)
[2018-07-16] MEDS: LORAZEPAM 1 MG TABLET PO SCH ×2 (09:55→21:17)
[2018-07-16] MEDS: CITALOPRAM HYDROBROMIDE 20 MG TABLET PO SCH (09:55)
[2018-07-16] MEDS: DOCUSATE SODIUM 100 MG CAPSULE PO SCH ×2 (09:55→17:15)
[2018-07-16] MEDS: DIVALPROEX SODIUM 500 MG TAB.SR.24H PO SCH ×2 (09:55→21:17)
[2018-07-16] MEDS: TAMSULOSIN HCL 0.4 MG CAP.SR.24H PO SCH (09:55)
--- NOTE | 2018-07-16 11:40 | Progress Note ---
Provider Note Provider Note: Patient continues to be stable. No issues whatsoever. His discharge is been delayed due to insurance issues and issues with accepting facility. He has no acute issues since he was discharged. Physical exam: General appearance: no acute distress, cooperative Head exam: atraumatic Respiratory exam: clear to auscultation carolyn. no accessory muscle use Cardiovascular exam: RRR Neurological exam: alert, awake Assessment: Breakthrough seizure Acute urinary retention UTI Plan: Finished IV Rocephin Continue Stearns catheter, Follow-up outpatient with urology. Continue Keppra Proceed with discharge as planned
[2018-07-17] MEDS: LEVETIRACETAM 500 MG TABLET PO SCH ×2 (06:22→18:13)
[2018-07-17] MEDS: LORAZEPAM 1 MG TABLET PO SCH ×2 (09:51→21:06)
[2018-07-17] MEDS: DIVALPROEX SODIUM 500 MG TAB.SR.24H PO SCH ×2 (09:53→21:11)
[2018-07-17] MEDS: TAMSULOSIN HCL 0.4 MG CAP.SR.24H PO SCH (09:53)
[2018-07-17] MEDS: DOCUSATE SODIUM 100 MG CAPSULE PO SCH ×2 (09:53→18:12)
[2018-07-17] MEDS: CITALOPRAM HYDROBROMIDE 20 MG TABLET PO SCH (09:53)
--- NOTE | 2018-07-17 12:08 | Progress Note ---
Provider Note Provider Note: Patient continues to be stable. No issues whatsoever. He has no acute issues since he was discharged. Physical exam: General appearance: no acute distress, cooperative Head exam: atraumatic Neurological exam: alert, awake Assessment: Breakthrough seizure Acute urinary retention UTI Plan: Finished IV Rocephin Continue Stearns catheter, Follow-up outpatient with urology. 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
[2018-07-17] MEDS: ACETAMINOPHEN 325 MG TABLET PO PRN ×2 (15:54→20:21)
[2018-07-17] MEDS: GUAIFENESIN SYRP 200 MG/10 ML UDC PO PRN (21:07)
[2018-07-18] MEDS: ACETAMINOPHEN 325 MG TABLET PO PRN ×5 (00:11→22:35)
[2018-07-18] MEDS: LEVETIRACETAM 500 MG TABLET PO SCH ×2 (05:33→17:16)
[2018-07-18] MEDS: TAMSULOSIN HCL 0.4 MG CAP.SR.24H PO SCH (09:59)
[2018-07-18] MEDS: LORAZEPAM 1 MG TABLET PO SCH ×2 (09:59→21:12)
[2018-07-18] MEDS: DIVALPROEX SODIUM 500 MG TAB.SR.24H PO SCH ×2 (10:00→21:12)
[2018-07-18] MEDS: DOCUSATE SODIUM 100 MG CAPSULE PO SCH ×2 (10:00→17:16)
[2018-07-18] MEDS: CITALOPRAM HYDROBROMIDE 20 MG TABLET PO SCH (10:00)
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
[2018-07-19] MEDS: ACETAMINOPHEN 325 MG TABLET PO PRN ×5 (02:37→23:28)
[2018-07-19] MEDS: LEVETIRACETAM 500 MG TABLET PO SCH ×2 (06:51→17:27)
[2018-07-19] MEDS: DOCUSATE SODIUM 100 MG CAPSULE PO SCH ×2 (10:28→17:27)
[2018-07-19] MEDS: CITALOPRAM HYDROBROMIDE 20 MG TABLET PO SCH (10:28)
[2018-07-19] MEDS: TAMSULOSIN HCL 0.4 MG CAP.SR.24H PO SCH (10:28)
[2018-07-19] MEDS: DIVALPROEX SODIUM 500 MG TAB.SR.24H PO SCH ×2 (10:28→21:05)
[2018-07-19] MEDS: LORAZEPAM 1 MG TABLET PO SCH ×2 (10:28→21:05)
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
[2018-07-20] MEDS: GUAIFENESIN SYRP 200 MG/10 ML UDC PO PRN (03:15)
[2018-07-20] MEDS: ACETAMINOPHEN 325 MG TABLET PO PRN ×4 (05:44→21:37)
[2018-07-20] MEDS: LEVETIRACETAM 500 MG TABLET PO SCH ×2 (05:44→17:19)
[2018-07-20] MEDS: DIVALPROEX SODIUM 500 MG TAB.SR.24H PO SCH ×2 (08:56→21:33)
[2018-07-20] MEDS: CITALOPRAM HYDROBROMIDE 20 MG TABLET PO SCH (08:56)
[2018-07-20] MEDS: TAMSULOSIN HCL 0.4 MG CAP.SR.24H PO SCH (08:56)
[2018-07-20] MEDS: LORAZEPAM 1 MG TABLET PO SCH ×2 (08:56→21:33)
[2018-07-20] MEDS: DOCUSATE SODIUM 100 MG CAPSULE PO SCH ×2 (08:56→17:19)
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
[2018-07-21] MEDS: LEVETIRACETAM 500 MG TABLET PO SCH (05:36)
[2018-07-21 08:33] VITALS: BP 114/72
[2018-07-21] MEDS: DOCUSATE SODIUM 100 MG CAPSULE PO SCH (09:13)
[2018-07-21] MEDS: TAMSULOSIN HCL 0.4 MG CAP.SR.24H PO SCH (09:13)
[2018-07-21] MEDS: DIVALPROEX SODIUM 500 MG TAB.SR.24H PO SCH (09:13)
[2018-07-21] MEDS: LORAZEPAM 1 MG TABLET PO SCH (09:13)
[2018-07-21] MEDS: CITALOPRAM HYDROBROMIDE 20 MG TABLET PO SCH (09:13)
[2018-07-21] MEDS: ACETAMINOPHEN 325 MG TABLET PO PRN (09:13)
--- NOTE | 2018-07-21 11:20 | Progress Note ---
Provider Note Provider Note: No acute event overnight. No change in assessment and plan, Patient will be discharged today to [facility]. Please see Addendum note valentin today on Dr. Weaver's discharge summary.
== END 2018-07-21 14:12 | DRG 101 ==
LOC: ER 17:22 → EH 23:27 → 3N 07-07 01:09 → 4N 07-17 20:11
PROVIDERS: ADMIT Internal Medicine; ATTEND Internal Medicine
DX: G40.909 Epilepsy, unspecified, not intractable, without status epilepticus (principal); N39.0 Urinary tract infection, site not specified; E11.9 Type 2 diabetes mellitus without complications; G47.33 Obstructive sleep apnea (adult) (pediatric); F03.90 Unspecified dementia, unspecified severity, without behavioral disturbance, psychotic disturbance, mood disturbance, and anxiety; I10 Essential (primary) hypertension; F31.9 Bipolar disorder, unspecified; D64.9 Anemia, unspecified; N40.1 Benign prostatic hyperplasia with lower urinary tract symptoms; R33.8 Other retention of urine; D72.819 Decreased white blood cell count, unspecified; D69.6 Thrombocytopenia, unspecified; Z87.820 Personal history of traumatic brain injury; Z79.899 Other long term (current) drug therapy; Z90.49 Acquired absence of other specified parts of digestive tract; Z75.1 Person awaiting admission to adequate facility elsewhere
CPT/HCPCS: 36415; 70450; 71045; 76770; 80048; 80053; 80177; 81001; 82607; 82728; 82746; 82962; 83540; 83550; 84153; 84443; 85025; 85045; 87086; 93005; 93010; 94640; 96365; 96375; 99285; C1758; J0696; J1953; J2060; J2405; J7030

== ENCOUNTER 2018-08-08 16:35 | Inpatient (IN) | payer MEDICARE, MEDICAID ==
[2018-08-08] MEDS ORDERED: NORMAL SALINE 1000 ML 1,000 ML IV ONE ×2 (16:51→18:56)
[2018-08-08] MEDS ORDERED: PIPERACILLIN/TAZOBACTAM 4.5 GM VIAL IV ONE (16:51)
--- NOTE | 2018-08-08 16:53 | ER Document Report ---
ED General - General Chief Complaint: Inability to Void Stated Complaint: UNABLE TO URINATE Time Seen by Provider: 08/08/18 16:42 Mode of Arrival: Medic Information source: Patient, Emergency Med Personnel, OM Records TRAVEL OUTSIDE OF THE [place] IN LAST 30 DAYS: No - HPI Patient complains to provider of: Urinary retention Onset: Other - 63-year-old man presents for evaluation of urinary retention fever and abdominal pain. Rest of history is limited secondary to patient's altered mental status. He does have a history of urinary retention in the past requiring Stearns catheter placement. It is unknown when the last time he had a Stearns catheter in place. - Related Data Allergies/Adverse Reactions: clonazepam [From [facility]] Allergy (Verified 04/21/17 23:26) Past Medical History - General Information source: Emergency Med Personnel, [facility] Records - Social History Smoking Status: Unknown if Ever Smoked Family History: COPD Patient has suicidal ideation: No Patient has homicidal ideation: No - Past Medical History Cardiac Medical History: Reports: Hx Hypertension, Hx Heart Murmur - As an adolescent(functional) Pulmonary Medical History: Reports: Hx Sleep Apnea - Not on C-PAP currently Neurological Medical History: Reports: Hx Seizures - 11/10 leading to TBI. on Keppra and Depakote Endocrine Medical History: Reports: Hx Diabetes Mellitus Type 2 Renal/ Medical History: Reports: Hx Benign Prostatic Hyperplasia. Denies: Hx Peritoneal Dialysis GI Medical History: Reports: Hx Gastroesophageal Reflux Disease - No meds Psychiatric Medical History: Reports: Hx Dementia - TBI, Hx Depression Traumatic Medical History: Reports: Hx Fractures - Hx of fx fingers , Hx Traumatic Brain Injury Past Surgical History: Reports: Hx Bowel Surgery, Hx Cholecystectomy, Hx Oral Surgery - Had all teeth pulled earlier today, Hx Tonsillectomy, Other - Colectomy for villous adenoma - Immunizations Hx Diphtheria, Pertussis, Tetanus Vaccination: Yes Hx Pneumococcal Vaccination: 10/31/11 Review of Systems - Review of Systems -: Yes ROS unobtainable due to patient's medical condition Physical Exam - Vital signs Vitals: Resp Pulse Ox 20 91 L 08/08/18 17:09 08/08/18 17:09 Interpretation: Tachycardic, Tachypneic, Febrile - General General appearance: Lethargic In distress: Mild - HEENT Head: Normocephalic Eyes: Normal Conjunctiva: Normal Cornea: Normal - Respiratory Respiratory status: Tachypnea Chest status: Nontender Breath sounds: Normal Chest palpation: Normal - Cardiovascular Rhythm: Regular Heart sounds: Normal auscultation - Abdominal Inspection: Normal Distension: Other - Palpable bladder just below the level of the umbilicus Tenderness: Tender - Diffuse tenderness - Back Back: Normal, Nontender - Extremities General upper extremity: Normal inspection, Nontender, Normal color, Normal ROM, Normal temperature General lower extremity: Normal inspection, Nontender, Normal color, Normal ROM, Normal temperature, Normal weight bearing. No: Harmeet's sign - Neurological Neuro grossly intact: Yes Cognition: Confused, Inattentive Orientation: Disoriented to place [place] Coma Scale Eye Opening: Spontaneous [place] Coma Scale Verbal: Confused [place] Coma Scale Motor: Obeys Commands [place] Coma Scale Total: 14 Speech: Normal Motor strength normal: LUE, RUE, LLE, RLE Sensory: Normal - Psychological Associated symptoms: Confused Course - Re-evaluation Re-evalutation: 08/08/18 20:39 This 63-year-old man presents for fever, tachycardia, urinary retention. On examination he is confused, has a palpable bladder, and complains of abdominal pain. We will obtain sepsis labs, will initiate treatment with Zosyn presumptively for possible sepsis. We will initiate fluid resuscitation with a liter normal saline. We will administer Motrin as patient is allergic to Tylenol reportedly has an antipyretic. Following administration of fluids, antibiotic, and Motrin patient's heart rate improved from the 130s to the 100 range. His blood pressure improved from the low 90 systolic to the 100 systolic range. His initial lactate was 4.5. A second lactic acid was ordered, following a second liter of fluid lactic acid will be drawn. Patient's urinalysis demonstrates frankly contaminated urine with obvious pyuria bacteria leuk esterase and positive nitrites. Have called the on-call hospitalist for evaluation and admission of this patient. We will plan for a monitored bed. - Vital Signs Vital signs: Temp Pulse Resp BP Pulse Ox 20 103/71 100 08/08/18 19:24 08/08/18 19:24 08/08/18 19:24 - Laboratory Result Diagrams: 08/08/18 17:31 08/08/18 17:31 Laboratory results interpreted by me: 08/08/18 08/08/18 08/08/18 17:05 17:31 17:31 WBC 13.4 H RBC 4.00 L Hgb 12.9 L Hct 36.5 L Plt Count 121 L Seg Neuts % (Manual) 92 H Lymphocytes % (Manual) 3 L Abs Neuts (Manual) 12.3 H Abs Lymphs (Manual) 0.4 L PT 16.3 H BUN Glucose Lactic Acid ALT Urine Protein 30 H Urine Ketones TRACE H Urine Blood MODERATE H Urine Nitrite POSITIVE H Ur Leukocyte Esterase LARGE H 08/08/18 08/08/18 17:31 17:31 WBC RBC Hgb Hct Plt Count Seg Neuts % (Manual) Lymphocytes % (Manual) Abs Neuts (Manual) Abs Lymphs (Manual) PT BUN 28 H Glucose 157 H Lactic Acid 4.2 H ALT 8 L Urine Protein Urine Ketones Urine Blood Urine Nitrite Ur Leukocyte Esterase Critical Care Note - Critical Care Note Total time excluding time spent on procedures (mins): 35 Discharge - Discharge Clinical Impression: UTI (urinary tract infection) Qualifiers: Urinary tract infection type: site unspecified Hematuria presence: with hematuria Qualified Code(s): N39.0 - Urinary tract infection, site not specified Sepsis Qualifiers: Sepsis type: sepsis due to unspecified organism Qualified Code(s): A41.9 - Sepsis, unspecified organism Condition: Stable Disposition: ADMITTED INPATIENT Admitting Provider: [facility] Unit Admitted: Telemetry
[2018-08-08 17:19] LABS: APPEARANCE,URINE CLOUDY; BILIRUBIN,URINE NEGATIVE (NEGATIVE); GLUCOSE, URINE NEGATIVE (NEGATIVE); KETONES,URINE TRACE mg/dL (NEGATIVE); LEUKOCYTE ESTERASE,URINE LARGE (NEGATIVE); NITRITE,URINE POSITIVE (NEGATIVE); PROTEIN,URINE 30 mg/dL (NEGATIVE); URINE SPECIFIC GRAVITY 1.015; UROBILINOGEN,URINE NEGATIVE mg/dL (<2.0)
[2018-08-08 17:20] LABS: COLOR,URINE YELLOW
--- NOTE | 2018-08-08 17:33 | RADIOLOGY REPORT (SQ) ---
EXAM DESCRIPTION: CHEST SINGLE VIEW COMPLETED DATE/TIME: 08/08/2018 5:21 pm REASON FOR STUDY: fever COMPARISON: 07/06/2018 EXAM PARAMETERS: NUMBER OF VIEWS: One view. TECHNIQUE: Single frontal radiographic view of the chest acquired. RADIATION DOSE: NA LIMITATIONS: None. FINDINGS: LUNGS AND PLEURA: No opacities, masses or pneumothorax. No pleural effusion. MEDIASTINUM AND HILAR STRUCTURES: No masses. Contour normal. HEART AND VASCULAR STRUCTURES: Heart normal in size. Normal vasculature. BONES: No acute findings. HARDWARE: None in the chest. OTHER: No other significant finding. IMPRESSION: NO ACUTE RADIOGRAPHIC FINDING IN THE CHEST. TECHNICAL DOCUMENTATION: JOB ID: [id number] [employer]- All Rights Reserved Reading location - IP/workstation name: [email or web address]
[2018-08-08 17:44] LABS: VENOUS BLOOD BASE EXCESS 1.2 mmol/L; VENOUS BLOOD HCO3 27.1 mmol/L (20-32); VENOUS BLOOD PCO2 47.6 mmHg (35-63); VENOUS BLOOD PH 7.37 (7.30-7.42)
[2018-08-08 17:51] LABS: HEMATOCRIT 36.5 % (37.9-51.0); HEMOGLOBIN 12.9 g/dL (13.5-17.0); INTERNATIONAL RATION (INR) 1.24; MEAN CORPUSCULAR HEMOGLOBIN 32.1 pg (27.0-33.4); MEAN CORPUSCULAR HGB CONC 35.2 g/dL (32.0-36.0); MEAN CORPUSCULAR VOLUME 91 fl (80-97); PLATELET COUNT 121 10^3/uL (150-450); PROTHROMBIN TIME 16.3 SEC (11.4-15.4); WHITE BLOOD COUNT 13.4 10^3/uL (4.0-10.5)
[2018-08-08] MEDS ORDERED: IBUPROFEN 400 MG TABLET PO ONE (18:01)
[2018-08-08 18:07] LABS: ABSOLUTE LYMPHOCYTES# (MANUAL) 0.4 10^3/uL (0.5-4.7); ABSOLUTE MONOCYTES # (MANUAL) 0.7 10^3/uL (0.1-1.4); ABSOLUTE NEUTROPHILS# (MANUAL) 12.3 10^3/uL (1.7-8.2); BASOPHILS % (MANUAL) 0 % (0-2); EOSINOPHILS % (MANUAL) 0 % (0-6); LYMPHOCYTES % (MANUAL) 3 % (13-45); MONOCYTES % (MANUAL) 5 % (3-13); PLATELET COMMENT DECREASED; SEGMENTED NEUTROPHILS % (MAN) 92 % (42-78); TOTAL CELLS COUNTED 100; TOXIC GRANULATION SLIGHT
[2018-08-08 18:29] LABS: ALANINE AMINOTRANSFERASE 8 U/L (21-72); ALBUMIN 3.7 g/dL (3.5-5.0); ALKALINE PHOSPHATASE 72 U/L (38-126); ANION GAP 15 (5-19); ASPARTATE AMINO TRANSFERASE 29 U/L (17-59); BILIRUBIN,DIRECT 0.3 mg/dL (0.0-0.4); BILIRUBIN,TOTAL 1.3 mg/dL (0.2-1.3); BLOOD UREA NITROGEN 28 mg/dL (7-20); CALCIUM 9.2 mg/dL (8.4-10.2); CARBON DIOXIDE 25 mmol/L (22-30); CHLORIDE 100 mmol/L (98-107); GLUCOSE 157 mg/dL (75-110); POTASSIUM 3.9 mmol/L (3.6-5.0); SODIUM 139.7 mmol/L (137-145)
--- NOTE | 2018-08-08 18:53 | EKG REPORT ---
SEVERITY:- ABNORMAL ECG - SINUS TACHYCARDIA LEFT ANTERIOR FASCICULAR BLOCK : Confirmed by: Chinedu Kang MD 08-Aug-2018 18:51:37
[2018-08-08] MEDS ORDERED: MAG HYDROX/AL HYDROX/SIMETH SUSP 30 ML UDCUP PO PRN (19:28)
[2018-08-08] MEDS ORDERED: ONDANSETRON 4 MG TAB.RAPDIS PO PRN (19:28)
[2018-08-08] MEDS ORDERED: ONDANSETRON HCL INJ/PF 4 MG/2 ML SDV IV PRN (19:28)
[2018-08-08] MEDS ORDERED: MORPHINE SULFATE 10 MG/ML INJ IV PRN ×3 (19:34)
[2018-08-08] MEDS ORDERED: ACETAMINOPHEN 325 MG TABLET PO PRN (19:34)
[2018-08-08] MEDS ORDERED: ACETAMINOPHEN 650 MG SUPP.RECT PR PRN (19:34)
[2018-08-08] MEDS ORDERED: NORMAL SALINE 1000 ML 1,000 ML IV PRN ×2 (19:40→21:41)
[2018-08-08] MEDS ORDERED: ERTAPENEM SODIUM INJ 1 GM VIAL IV SCH (19:45)
[2018-08-08] MEDS ORDERED: INSULIN REG, HUMAN 100 UNIT/ML 3 ML VIAL (PYX) SUBCUT PRN (21:58)
[2018-08-08] MEDS ORDERED: GLUCAGON,HUMAN RECOMB 1 MG INJ IM PRN (21:58)
[2018-08-08] MEDS ORDERED: DEXTROSE 40% GEL 15 GM TUBE PO PRN ×2 (21:58)
[2018-08-08] MEDS ORDERED: DEXTROSE 50%-WATER 25 GM/50 ML DISP.SYRIN IV PRN ×2 (21:58)
--- NOTE | 2018-08-08 22:08 | PDOC H&P ---
History of Present Illness Admission Date/PCP: 08/08/2018 Patient complains of: Urinary retention History of Present Illness: SHON PAZ is a 63 year old male who was [facility] room for lower abdominal discomfort and presumed urinary retention. He complained of severe, cramping pressure type, lower abdominal pain without radiation in the emergency room. Pain was relieved by placement of a Stearns catheter and removal of 1700+ milliliters of urine from his bladder. The urine was noted to be turbid and urinalysis revealed positive nitrate and pyuria, urine cultures and sensitivities are pending. Blood cultures were ordered and they are also pending. Patient was started on Zosyn for possible treatment of sepsis by the emergency room physician. He was noted to have a heart rate in the 120s, a blood pressure of approximately 100/70 and a tempe rature of 99.4 F at the time of admission. He is further noted to have a history of traumatic brain injury and chronic dementia. Though he is easily arousable at the time my evaluation with verbal command/stimulation he is significantly confused when trying to provide any type of recent or remote history. Patient this point definitely merits SIRS criteria and is most likely septic secondary to his urinary tract infection. He will be admitted for further evaluation and treatment to either the IMCU or the ICU depending on his continued maintenance of an adequate blood pressure. Past Medical History Past Medical History: Past medical surgical and social histories are obtained primarily from prior records due to the patient's chronic dementia. 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, history of dementia Endocrine Medical History: Reports: Diabetes Mellitus Type 2 Denies: Diabetes Mellitus Type 1, Hyperthyroidism, Hypothyroidism Renal/ Medical History: Denies: Chronic Kidney Disease, Nephrolithiasis Malignancy Medical History: Reports: None GI Medical History: Reports: Gastroesophageal Reflux Disease - No meds, Other - Colonic villous adenomas Denies: Cirrhosis, Hepatitis Musculoskeltal Medical History: Denies: Arthritis, Gout Skin Medical History: Denies: Eczema, Psoriasis Psychiatric Medical History: Reports: Dementia - TBI, Depression Denies: Alcohol Dependency, Substance Abuse, Tobacco Dependency Traumatic Medical History: Reports: Traumatic Brain Injury Hematology: Reports: Anemia Denies: Bleeding Tendencies Infectious Medical History: Reports: None Past Surgical History Past Surgical History: Past medical surgical and social histories are obtained primarily from prior re cords due to the patient's chronic dementia. Past Surgical History: Reports: Cholecystectomy, Tonsillectomy, Other - Colectomy for villous adenoma Social History Information Source: Patient, [facility] Records Lives with: Assisted Smoking Status: Never Smoker Frequency of Alcohol Use: None Hx Recreational Drug Use: No Drugs: None Hx Prescription Drug Abuse: No Past Social History Note: Past medical surgical and social histories are obtained primarily from prior records due to the patient's chronic dementia. - Advance Directive Resuscitation Status: Full Code Surrogate healthcare decision maker:: Puja Herrera Family History Family History: COPD Family History: Past medical, surgical, family and social histories are obtained primarily from prior records due to the patient's chronic dementia. Parental Family History Reviewed: Yes Children Family History Reviewed: No Sibling(s) Family History Reviewed.: Yes Medication/Allergy Home Medications: Divalproex Sodium [Divalproex Sodium ER] 500 mg PO Q12 04/26/17 Lorazepam [Ativan 1 mg Tablet] 1 mg PO Q12 04/26/17 Acetaminophen [Tylenol] 650 mg PO Q8HP PRN 07/07/18 Cold Cream/Zinc Oxide/Star/Abram [[place] Ointment] 1 dose TP PRN PRN 07/07/18 Guaifenesin [Robafen] 10 ml PO Q4HP PRN 07/07/18 Loperamide HCl [Anti-Diarrhea] 2 mg PO Q6HP PRN MDD 8MG 07/07/18 Magnesium Hydroxide [Milk of Magnesia 30 ml Udcup] 30 ml PO DAILYP PRN MDD 60ML 07/07/18 Levetiracetam [Keppra 500 mg Tablet] 1,000 mg PO Q12A #60 tablet 07/21/18 Tamsulosin HCl [Flomax 0.4 mg Cap.sr] 0.4 mg PO DAILY #30 cap.sr.24h 07/21/18 Citalopram Hydrobromide [Celexa 10 mg Tablet] 30 mg PO DAILY 08/08/18 Allergies/Adverse Reactions: clonazepam [From Klonopin] Allergy (Verified 04/21/17 23:26) Review of Systems ROS unobtainable: Due to mental status Physical Exam Vital Signs: Temp Pulse Resp BP Pulse Ox 20 103/71 100 08/08/18 19:24 08/08/18 19:24 08/08/18 19:24 Intake & Output 08/06/18 08/07/18 08/08/18 23:59 23:59 23:59 Intake Total 1000 Output Total 1000 Balance 0 General appearance: PRESENT: no acute distress, cooperative Head exam: PRESENT: atraumatic, normocephalic Eye exam: PRESENT: conjunctiva pink, EOMI. ABSENT: scleral icterus Ear exam: PRESENT: normal external ear exam. ABSENT: drainage Mouth exam: PRESENT: dry mucosa, neck supple Neck exam: ABSENT: thyromegaly, tracheal deviation Respiratory exam: PRESENT: clear to auscultation carolyn, symmetrical, unlabored Cardiovascular exam: PRESENT: RRR. ABSENT: clicks, gallop, rubs Pulses: PRESENT: normal radial pulses, normal dorsalis pedis pul Vascular exam: PRESENT: pallor. ABSENT: normal capillary refill - Capillary refill is sluggish at 3-4 seconds GI/Abdominal exam: PRESENT: normal bowel sounds, soft. ABSENT: organolmegaly Rectal exam: PRESENT: deferred Extremities exam: ABSENT: joint swelling, pedal edema Musculoskeletal exam: ABSENT: deformity, dislocation Neurological exam: PRESENT: alert - Easily aroused with verbal stimuli, oriented to person, oriented to place, CN II-XII grossly intact. ABSENT: oriented to time, oriented to situation, motor sensory deficit - On gross evaluation Psychiatric exam: PRESENT: appropriate affect, normal mood, other - Confused with significant short and long-term memory deficits Skin exam: PRESENT: dry, intact, pallor, warm. ABSENT: jaundice, rash, urticaria Results Laboratory Results: 08/08/18 17:31 08/08/18 17:31 08/08/18 08/08/18 08/08/18 17:05 17:31 17:31 WBC 13.4 H RBC 4.00 L Hgb 12.9 L Hct 36.5 L MCV 91 MCH 32.1 MCHC 35.2 RDW 13.0 Plt Count 121 L Seg Neutrophils % Not Reportable Lymphocytes % Not Reportable Monocytes % Not Reportable Eosinophils % Not Reportable Basophils % Not Reportable Absolute Neutrophils Not Reportable Absolute Lymphocytes Not Reportable Absolute Monocytes Not Reportable Absolute Eosinophils Not Reportable Absolute Basophils Not Reportable VBG pH VBG pCO2 VBG HCO3 VBG Base Excess Sodium 139.7 Potassium 3.9 Chloride 100 Carbon Dioxide 25 Anion Gap 15 BUN 28 H Creatinine 1.23 Est GFR ( Amer) > 60 Est GFR (Non-Af Amer) > 60 Glucose 157 H Lactic Acid Calcium 9.2 Total Bilirubin 1.3 AST 29 ALT 8 L Alkaline Phosphatase 72 Total Protein 7.0 Albumin 3.7 Urine Color YELLOW Urine Appearance CLOUDY Urine pH 5.0 Ur Specific [place] 1.015 Urine Protein 30 H Urine Glucose (UA) NEGATIVE Urine Ketones TRACE H Urine Blood MODERATE H Urine Nitrite POSITIVE H Ur Leukocyte Esterase LARGE H Urine WBC (Auto) 119 Urine RBC (Auto) 33 08/08/18 08/08/18 17:31 17:31 WBC RBC Hgb Hct MCV MCH MCHC RDW Plt Count Seg Neutrophils % Lymphocytes % Monocytes % Eosinophils % Basophils % Absolute Neutrophils Absolute Lymphocytes Absolute Monocytes Absolute Eosinophils Absolute Basophils VBG pH 7.37 VBG pCO2 47.6 VBG HCO3 27.1 VBG Base Excess 1.2 Sodium Potassium Chloride Carbon Dioxide Anion Gap BUN Creatinine Est GFR ( Amer) Est GFR (Non-Af Amer) Glucose Lactic Acid 4.2 H Calcium Total Bilirubin AST ALT Alkaline Phosphatase Total Protein Albumin Urine Color Urine Appearance Urine pH Ur Specific [place] Urine Protein Urine Glucose (UA) Urine Ketones Urine Blood Urine Nitrite Ur Leukocyte Esterase Urine WBC (Auto) Urine RBC (Auto) Impressions: Chest X-Ray 08/08/18 16:51 IMPRESSION: NO ACUTE RADIOGRAPHIC FINDING IN THE CHEST. Assessment & Plan - Diagnosis (1) SIRS (systemic inflammatory response syndrome) Is this a current diagnosis for this admission?: Yes Plan: Patient meets SIRS criteria and will be observed closely for signs of sepsis. Initial blood pressure was 100/70 and initial heart rate was greater than 120. After initial IV fluids patient's blood pressure continued to be in the range of 100/70 however the heart rate did reduce to approximately 100. With these findings consideration for sepsis will need to be monitored on an ongoing basis a second lactic acid has been ordered for 4 hours after the first and should help delineate the diagnosis. White blood count was moderately elevated at 13.4 and daily white blood counts will be obtained. Blood cultures and urine culture pending. Broad-spectrum antibiotic therapy with Invanz is initiated and continued fluid resuscitation with normal saline at 250 mL/h is maintained.Blood pressure will be supported with Levophed as his BP has dropped into the 80's systolic. (2) Acute urinary retention Is this a current diagnosis for this admission?: Yes Plan: The patient has had a Stearns catheter placed and this will be maintained until after he can be evaluated by urology. Sliding scale morphine sulfate will be used for pain control administered intravenously every 2 hours as needed for pain. (3) UTI (urinary tract infection) Qualifiers: Urinary tract infection type: site unspecified Hematuria presence: with hematuria Qualified Code(s): N39.0 - Urinary tract infection, site not specified; R31.9 - Hematuria, unspecified Is this a current diagnosis for this admission?: Yes Plan: Patient's urine is positive for nitrite and shows greater than 120 white blood cells per high-powered field. Urine culture is pending however in the interim the patient will be treated with Invanz until therapy scope can be narrowed based on C&S results. (4) Metabolic acidosis Is this a current diagnosis for this admission?: Yes Plan: Patient's metabolic acidosis will be monitored with a repeat lactic acid level and daily metabolic profiles. (5) Seizure disorder Is this a current diagnosis for this admission?: Yes Plan: Patient has a history of chronic seizure disorder and will be maintained on his usual medications of lorazepam, valproic acid and Keppra. Patient's valproic acid level and Keppra levels will be monitored as needed and consideration for the possible decrease in efficacy of valproic acid with carbapenum antibiotics will be maintained in all therapeutic decisions. Patient will be converted to a more narrowed spectrum antibiotic as soon as urine C&S results are available. (6) DM II (diabetes mellitus, type II), controlled Qualifiers: Diabetes mellitus residential insulin use: without ad terminal makeup operator use Diabetes mellitus complication status: with hyperglycemia Qualified Code(s): E11.65 - Type 2 diabetes mellitus with hyperglycemia Is this a current diagnosis for this admission?: Yes Plan: Patient has a history of diabetes mellitus type 2 but is not currently on a therapeutic agent per his unverified records. Hemoglobin A1c will be obtained to further evaluate. He will be maintained on a carb 4 diet. (7) HTN (hypertension) Qualifiers: Hypertension type: essential hypertension Qualified Code(s): I10 - Essential (primary) hypertension Is this a current diagnosis for this admission?: Yes Plan: Patient has a history of essential hypertension however he does not have an antihypertensive agent listed on his unverified medication list. His vital signs be monitored closely through his hospital course with additional evaluation and/or treatment as needed. He will be maintained on a heart healthy diet. - Time Time Spent: 30 to 50 Minutes Critical Time spent with patient: Less than 15 minutes Medications reviewed and adjusted accordingly: Yes - Inpatient Certification Based on my medical assessment, after consideration of the patient's co morbidities, presenting symptoms, or acuity I expect that the services needed warrant INPATIENT care.: Yes I certify that my determination is in accordance with my understanding of Medicare's requirements for reasonable and necessary INPATIENT services [42 CFR 412.3e].: Yes Medical Necessity: Need Close Monitoring Due to Risk of Patient Decompensation, Need For IV Fluids, Need for IV Antibiotics, Risk of Complication if Not Cared For in Hospital
[2018-08-08] MEDS ORDERED: LIDOCAINE 1% INJ-PF (10 MG/ML) 30 ML SDV ONE (22:21)
[2018-08-08 22:34] LABS: FREE T3 3.29 pg/mL (2.77-5.27); FREE T4 (FREE THYROXINE) 2.21 ng/dL (0.78-2.19)
[2018-08-08] MEDS: DEXTROSE 5%-WATER 250 ML with NOREPINEPHRINE BITARTRATE 4 MG IV PRN ×2 (23:12)
--- NOTE | 2018-08-08 23:18 | RADIOLOGY REPORT (SQ) ---
EXAM DESCRIPTION: XR CHEST 1 VIEW COMPLETED DATE/TME: 08/08/2018 00:00 CLINICAL HISTORY: 63 years, Male, post central line placement COMPARISON: Prior chest x-ray from today's date NUMBER OF VIEWS: 1 TECHNIQUE: Portable chest LIMITATIONS: None. FINDINGS: Heart size is normal. Central venous catheter with the tip likely in the SVC. No pneumothorax. Lungs are clear. IMPRESSION: Tip of the central line likely in the SVC. No pneumothorax copyright 2010 [employer]- All Rights Reserved
[2018-08-08] MEDS: DIVALPROEX SODIUM 500 MG TAB.SR.24H PO SCH (23:26)
[2018-08-08] MEDS: LORAZEPAM 1 MG TABLET PO SCH (23:27)
[2018-08-08] MEDS: HEPARIN SOD (PORCINE) 5,000 UNIT/ML 1 ML SYRINGE SUBCUT SCH (23:30)
[2018-08-08] MEDS: ERTAPENEM SODIUM 1 GM in NORMAL SALINE 50 ML IV SCH (23:38)
[2018-08-09] MEDS: FAMOTIDINE 20 MG TABLET PO SCH ×3 (01:28→22:02)
[2018-08-09] MEDS ORDERED: NOREPINEPHRINE BITARTRATE INJ/PF 4 MG/4 ML SDV IV ONE (03:45)
[2018-08-09 04:39] LABS: HEMATOCRIT 29.2 % (37.9-51.0); MEAN CORPUSCULAR HEMOGLOBIN 32.3 pg (27.0-33.4); MEAN CORPUSCULAR HGB CONC 35.2 g/dL (32.0-36.0); MEAN CORPUSCULAR VOLUME 92 fl (80-97); RED BLOOD COUNT 3.18 10^6/uL (4.35-5.55); WHITE BLOOD COUNT 18.9 10^3/uL (4.0-10.5)
[2018-08-09 04:41] LABS: PLATELET COUNT 91 10^3/uL (150-450)
[2018-08-09 04:42] LABS: HEMOGLOBIN 10.3 g/dL (13.5-17.0)
[2018-08-09 04:57] LABS: ANION GAP 5 (5-19); BLOOD UREA NITROGEN 24 mg/dL (7-20); CALCIUM 8.2 mg/dL (8.4-10.2); CARBON DIOXIDE 28 mmol/L (22-30); CHLORIDE 111 mmol/L (98-107); GLUCOSE 130 mg/dL (75-110); POTASSIUM 3.4 mmol/L (3.6-5.0); SODIUM 143.7 mmol/L (137-145)
[2018-08-09] MEDS: HEPARIN SOD (PORCINE) 5,000 UNIT/ML 1 ML SYRINGE SUBCUT SCH ×3 (05:00→21:55)
[2018-08-09 05:09] LABS: ABSOLUTE LYMPHOCYTES# (MANUAL) 1.3 10^3/uL (0.5-4.7); ABSOLUTE MONOCYTES # (MANUAL) 2.6 10^3/uL (0.1-1.4); ABSOLUTE NEUTROPHILS# (MANUAL) 14.9 10^3/uL (1.7-8.2); BASOPHILS % (MANUAL) 0 % (0-2); EOSINOPHILS % (MANUAL) 0 % (0-6); LYMPHOCYTES % (MANUAL) 7 % (13-45); MONOCYTES % (MANUAL) 14 % (3-13); PLATELET COMMENT DECREASED; SCHISTOCYTES SLIGHT; SEGMENTED NEUTROPHILS % (MAN) 79 % (42-78); TOTAL CELLS COUNTED 100; TOXIC GRANULATION SLIGHT; TOXIC VACUOLATION PRESENT
[2018-08-09] MEDS: LEVETIRACETAM 500 MG TABLET PO SCH ×2 (05:49→17:59)
[2018-08-09] MEDS: LORAZEPAM 1 MG TABLET PO SCH ×2 (09:13→22:02)
[2018-08-09] MEDS: TAMSULOSIN HCL 0.4 MG CAP.SR.24H PO SCH (09:13)
[2018-08-09] MEDS: CITALOPRAM HYDROBROMIDE 20 MG TABLET PO SCH (09:13)
[2018-08-09] MEDS: DOCUSATE SODIUM 100 MG CAPSULE PO SCH ×2 (09:13→17:59)
[2018-08-09] MEDS: DIVALPROEX SODIUM 500 MG TAB.SR.24H PO SCH ×2 (09:14→22:02)
[2018-08-09] MEDS ORDERED: CITALOPRAM HYDROBROMIDE 30 MG PO SCH (10:00)
[2018-08-09] MEDS: DEXTROSE 5%-WATER 250 ML with NOREPINEPHRINE BITARTRATE 4 MG IV PRN ×2 (13:00)
[2018-08-09] MEDS ORDERED: ONDANSETRON HCL INJ/PF 4 MG/2 ML SDV IV PRN (14:00)
[2018-08-09] MEDS ORDERED: ONDANSETRON 4 MG TAB.RAPDIS PO PRN (14:00)
--- NOTE | 2018-08-09 18:14 | PDOC PROGRESS REPORT ---
Subjective Progress Note for:: 08/09/18 Subjective:: The patient is resting comfortably. With prompting he actually opens his eyes and answers questions appropriately. He denies any pain. He did say he was cold but that was his only complaint. Reason For Visit: SIRS, ACUTE UTI Physical Exam Vital Signs: Temp Pulse Resp BP Pulse Ox 97.5 F 64 13 104/57 L 98 08/09/18 06:00 08/09/18 04:00 08/09/18 06:00 08/09/18 05:58 08/09/18 06:00 Intake & Output 08/08/18 08/09/18 08/10/18 06:59 06:59 06:59 Intake Total 2230 0 Output Total 2325 500 Balance -95 -500 Weight 57 kg General appearance: PRESENT: no acute distress, cooperative, thin Head exam: PRESENT: normocephalic Eye exam: PRESENT: conjunctiva pale Mouth exam: PRESENT: dry mucosa, tongue midline Respiratory exam: PRESENT: clear to auscultation carolyn, symmetrical, unlabored. ABSENT: prolonged expiratory phas, rales, rhonchi, wheezes Cardiovascular exam: PRESENT: bradycardia, RRR Vascular exam: PRESENT: pallor GI/Abdominal exam: PRESENT: normal bowel sounds, soft. ABSENT: distended, tenderness Extremities exam: ABSENT: pedal edema Musculoskeletal exam: PRESENT: other - Decreased muscle mass Neurological exam: PRESENT: alert - Became more alert through the encounter, awake - Awakens easily, oriented to person, oriented to place Psychiatric exam: PRESENT: appropriate affect. ABSENT: agitated, anxious Focused psych exam: ABSENT: restlessness Results Laboratory Results: 08/09/18 04:04 08/09/18 04:04 08/08/18 08/08/18 08/08/18 17:05 17:31 17:31 WBC 13.4 H RBC 4.00 L Hgb 12.9 L Hct 36.5 L MCV 91 MCH 32.1 MCHC 35.2 RDW 13.0 Plt Count 121 L Seg Neutrophils % Not Reportable Lymphocytes % Not Reportable Monocytes % Not Reportable Eosinophils % Not Reportable Basophils % Not Reportable Absolute Neutrophils Not Reportable Absolute Lymphocytes Not Reportable Absolute Monocytes Not Reportable Absolute Eosinophils Not Reportable Absolute Basophils Not Reportable VBG pH VBG pCO2 VBG HCO3 VBG Base Excess Sodium 139.7 Potassium 3.9 Chloride 100 Carbon Dioxide 25 Anion Gap 15 BUN 28 H Creatinine 1.23 Est GFR ( Amer) > 60 Est GFR (Non-Af Amer) > 60 Glucose 157 H Lactic Acid Calcium 9.2 Magnesium Total Bilirubin 1.3 AST 29 ALT 8 L Alkaline Phosphatase 72 Total Protein 7.0 Albumin 3.7 TSH Free T4 Free T3 pg/mL Urine Color YELLOW Urine Appearance CLOUDY Urine pH 5.0 Ur Specific [place] 1.015 Urine Protein 30 H Urine Glucose (UA) NEGATIVE Urine Ketones TRACE H Urine Blood MODERATE H Urine Nitrite POSITIVE H Ur Leukocyte Esterase LARGE H Urine WBC (Auto) 119 Urine RBC (Auto) 33 08/08/18 08/08/18 08/08/18 17:31 17:31 17:31 WBC RBC Hgb Hct MCV MCH MCHC RDW Plt Count Seg Neutrophils % Lymphocytes % Monocytes % Eosinophils % Basophils % Absolute Neutrophils Absolute Lymphocytes Absolute Monocytes Absolute Eosinophils Absolute Basophils VBG pH 7.37 VBG pCO2 47.6 VBG HCO3 27.1 VBG Base Excess 1.2 Sodium Potassium Chloride Carbon Dioxide Anion Gap BUN Creatinine Est GFR ( Amer) Est GFR (Non-Af Amer) Glucose Lactic Acid 4.2 H Calcium Magnesium Total Bilirubin AST ALT Alkaline Phosphatase Total Protein Albumin TSH Free T4 2.21 H Free T3 pg/mL 3.29 Urine Color Urine Appearance Urine pH Ur Specific [place] Urine Protein Urine Glucose (UA) Urine Ketones Urine Blood Urine Nitrite Ur Leukocyte Esterase Urine WBC (Auto) Urine RBC (Auto) 08/08/18 08/08/18 08/09/18 20:41 23:39 04:04 WBC RBC Hgb Hct MCV MCH MCHC RDW Plt Count Seg Neutrophils % Lymphocytes % Monocytes % Eosinophils % Basophils % Absolute Neutrophils Absolute Lymphocytes Absolute Monocytes Absolute Eosinophils Absolute Basophils VBG pH VBG pCO2 VBG HCO3 VBG Base Excess Sodium Potassium Chloride Carbon Dioxide Anion Gap BUN Creatinine Est GFR ( Amer) Est GFR (Non-Af Amer) Glucose Lactic Acid 2.4 H 1.4 1.3 Calcium Magnesium Total Bilirubin AST ALT Alkaline Phosphatase Total Protein Albumin TSH Free T4 Free T3 pg/mL Urine Color Urine Appearance Urine pH Ur Specific [place] Urine Protein Urine Glucose (UA) Urine Ketones Urine Blood Urine Nitrite Ur Leukocyte Esterase Urine WBC (Auto) Urine RBC (Auto) 08/09/18 08/09/18 08/09/18 04:04 04:04 04:04 WBC 18.9 H RBC 3.18 L Hgb 10.3 L D Hct 29.2 L MCV 92 MCH 32.3 MCHC 35.2 RDW 13.0 Plt Count 91 L Seg Neutrophils % Not Reportable Lymphocytes % Not Reportable Monocytes % Not Reportable Eosinophils % Not Reportable Basophils % Not Reportable Absolute Neutrophils Not Reportable Absolute Lymphocytes Not Reportable Absolute Monocytes Not Reportable Absolute Eosinophils Not Reportable Absolute Basophils Not Reportable VBG pH VBG pCO2 VBG HCO3 VBG Base Excess Sodium 143.7 Potassium 3.4 L Chloride 111 H Carbon Dioxide 28 Anion Gap 5 BUN 24 H Creatinine 0.96 Est GFR ( Amer) > 60 Est GFR (Non-Af Amer) > 60 Glucose 130 H Lactic Acid Calcium 8.2 L Magnesium 1.7 Total Bilirubin AST ALT Alkaline Phosphatase Total Protein Albumin TSH 0.53 Free T4 Free T3 pg/mL Urine Color Urine Appearance Urine pH Ur Specific [place] Urine Protein Urine Glucose (UA) Urine Ketones Urine Blood Urine Nitrite Ur Leukocyte Esterase Urine WBC (Auto) Urine RBC (Auto) Impressions: Chest X-Ray 08/08/18 16:51 IMPRESSION: NO ACUTE RADIOGRAPHIC FINDING IN THE CHEST. Assessment & Plan - Diagnosis (1) Sepsis Qualifiers: Sepsis type: sepsis due to unspecified organism Qualified Code(s): A41.9 - Sepsis, unspecified organism Is this a current diagnosis for this admission?: Yes Plan: Blood cultures are growing gram-negative bacillus. Identification sensitivities not available as yet. The patient is on broad-spectrum antibiotic therapy with ertapenem. He still requires vasopressors. Over the next 24-48 hours with the antibiotic therapy I expect him to improve. (2) Acute urinary retention Is this a current diagnosis for this admission?: Yes Plan: Unsure if the retention was caused by the infection or if he had retention and developed infection. He is now on tamsulosin. We will aim to remove Stearns when appropriate. (3) Hypotension Is this a current diagnosis for this admission?: Yes Plan: Most likely secondary to the infection causing sepsis. As noted above I expect the patient to be able to wean from vasopressor therapy as treatment for the infection continues. - Time Time Spent with patient: 15-24 minutes Medications reviewed and adjusted accordingly: Yes
[2018-08-09] MEDS: ERTAPENEM SODIUM 1 GM in NORMAL SALINE 50 ML IV SCH (22:02)
[2018-08-10] MEDS: HEPARIN SOD (PORCINE) 5,000 UNIT/ML 1 ML SYRINGE SUBCUT SCH (05:53)
[2018-08-10] MEDS: LEVETIRACETAM 500 MG TABLET PO SCH ×2 (06:22→17:30)
[2018-08-10 06:40] LABS: ABSOLUTE LYMPHOCYTES (AUTO) 0.7 10^3/uL (0.5-4.7); ABSOLUTE MONOCYTES (AUTO) 0.9 10^3/uL (0.1-1.4); ABSOLUTE NEUT (AUTO) 5.4 10^3/uL (1.7-8.2); BASOPHILS % (AUTO) 0.1 % (0-2); EOSINOPHILS % (AUTO) 0.6 % (0-6); HEMATOCRIT 29.7 % (37.9-51.0); HEMOGLOBIN 10.6 g/dL (13.5-17.0); LYMPHOCYTES % (AUTO) 10.4 % (13-45); MEAN CORPUSCULAR HEMOGLOBIN 32.6 pg (27.0-33.4); MEAN CORPUSCULAR HGB CONC 35.6 g/dL (32.0-36.0); MEAN CORPUSCULAR VOLUME 92 fl (80-97); MONOCYTES % (AUTO) 12.9 % (3-13); RED BLOOD COUNT 3.24 10^6/uL (4.35-5.55); RED CELL DISTRIBUTION WIDTH 13.3 % (11.5-14.0); TOTAL CELLS COUNTED % (AUTO) 100 %; WHITE BLOOD COUNT 7.2 10^3/uL (4.0-10.5)
[2018-08-10 06:51] LABS: BLOOD UREA NITROGEN 18 mg/dL (7-20); CALCIUM 8.2 mg/dL (8.4-10.2); CARBON DIOXIDE 31 mmol/L (22-30); CHLORIDE 109 mmol/L (98-107); GLUCOSE 83 mg/dL (75-110); POTASSIUM 3.6 mmol/L (3.6-5.0); SODIUM 142.8 mmol/L (137-145)
[2018-08-10 06:57] LABS: PLATELET COUNT 73 10^3/uL (150-450)
[2018-08-10 07:07] LABS: ANION GAP 3 (5-19)
--- NOTE | 2018-08-10 09:55 | PDOC PROGRESS REPORT ---
Subjective Progress Note for:: 08/10/18 Subjective:: The patient is awake and alert this morning. He did not remember being at [facility]. Some details of medical history he was unable to recall. He appears comfortable. Reason For Visit: SIRS, HYPOTENSION,ACUTE UTI Physical Exam Vital Signs: Temp Pulse Resp BP Pulse Ox 98.2 F 69 16 113/75 92 08/10/18 05:58 08/09/18 19:52 08/10/18 05:58 08/10/18 05:58 08/10/18 05:58 Intake & Output 08/09/18 08/10/18 08/11/18 06:59 06:59 06:59 Intake Total 2230 894 Output Total 2325 1365 Balance -95 -471 Weight 57 kg 56.8 kg General appearance: PRESENT: no acute distress, cooperative, thin Head exam: PRESENT: normocephalic Ear exam: PRESENT: normal external ear exam Mouth exam: PRESENT: moist, tongue midline Neck exam: PRESENT: other - Central line right internal jugular Respiratory exam: PRESENT: decreased breath sounds - Decreased inspiratory phase. I did not detect any rales or wheezes., symmetrical. ABSENT: rhonchi, stridor, wheezes Cardiovascular exam: PRESENT: RRR, +S1, +S2 Vascular exam: PRESENT: pallor GI/Abdominal exam: PRESENT: normal bowel sounds, soft. ABSENT: distended, tenderness Gentrourinary exam: PRESENT: indwelling catheter Extremities exam: ABSENT: pedal edema Musculoskeletal exam: PRESENT: other - Decreased muscle mass Neurological exam: PRESENT: alert, awake, oriented to person, oriented to place Psychiatric exam: PRESENT: flat affect. ABSENT: agitated, anxious Focused psych exam: ABSENT: restlessness Results Laboratory Results: 08/10/18 06:20 08/10/18 06:20 08/10/18 08/10/18 06:20 06:20 WBC 7.2 RBC 3.24 L Hgb 10.6 L Hct 29.7 L MCV 92 MCH 32.6 MCHC 35.6 RDW 13.3 Plt Count 73 L Seg Neutrophils % 76.0 Lymphocytes % 10.4 L Monocytes % 12.9 Eosinophils % 0.6 Basophils % 0.1 Absolute Neutrophils 5.4 Absolute Lymphocytes 0.7 Absolute Monocytes 0.9 Absolute Eosinophils 0.0 Absolute Basophils 0.0 Sodium 142.8 Potassium 3.6 Chloride 109 H Carbon Dioxide 31 H Anion Gap 3 L BUN 18 Creatinine 0.64 Est GFR ( Amer) > 60 Est GFR (Non-Af Amer) > 60 Glucose 83 Calcium 8.2 L Magnesium 1.6 Impressions: Chest X-Ray 08/08/18 16:51 IMPRESSION: NO ACUTE RADIOGRAPHIC FINDING IN THE CHEST. Assessment & Plan - Diagnosis (1) Sepsis Qualifiers: Sepsis type: sepsis due to unspecified organism Qualified Code(s): A41.9 - Sepsis, unspecified organism Is this a current diagnosis for this admission?: Yes Plan: Continue antibiotic therapy. White blood cell count has finally normalized. He has been off of pressor therapy for greater than 12 hours. (2) Acute urinary retention Is this a current diagnosis for this admission?: Yes Plan: He has been started on Flomax in anticipation of removing his Stearns catheter. I will wait another day before attempting removal. (3) Hypotension Is this a current diagnosis for this admission?: Yes Plan: Resolved. - Time Time Spent with patient: 15-24 minutes Medications reviewed and adjusted accordingly: Yes Anticipated discharge: SNF - Plan Summary Plan Summary: The patient will be seen by physical therapy. In addition I have ordered incentive spirometry to help prevent atelectasis.
[2018-08-10] MEDS: LORAZEPAM 1 MG TABLET PO SCH ×2 (10:01→21:01)
[2018-08-10] MEDS: DOCUSATE SODIUM 100 MG CAPSULE PO SCH ×2 (10:01→17:30)
[2018-08-10] MEDS: TAMSULOSIN HCL 0.4 MG CAP.SR.24H PO SCH (10:02)
[2018-08-10] MEDS: FAMOTIDINE 20 MG TABLET PO SCH ×2 (10:02→21:01)
[2018-08-10] MEDS: DIVALPROEX SODIUM 500 MG TAB.SR.24H PO SCH ×2 (10:03→21:01)
[2018-08-10] MEDS: CITALOPRAM HYDROBROMIDE 20 MG TABLET PO SCH (10:04)
[2018-08-10] MEDS: FONDAPARINUX SODIUM INJ 2.5 MG/0.5 ML DISP.SYRIN SUBCUT SCH (10:08)
[2018-08-10] MEDS: ERTAPENEM SODIUM 1 GM in NORMAL SALINE 50 ML IV SCH (21:09)
[2018-08-11] MEDS: LEVETIRACETAM 500 MG TABLET PO SCH ×2 (06:50→17:38)
[2018-08-11 07:35] LABS: ABSOLUTE EOSINOPHILS # (AUTO) 0.1 10^3/uL (0.0-0.6); ABSOLUTE LYMPHOCYTES (AUTO) 1.5 10^3/uL (0.5-4.7); ABSOLUTE MONOCYTES (AUTO) 0.9 10^3/uL (0.1-1.4); ABSOLUTE NEUT (AUTO) 4.1 10^3/uL (1.7-8.2); BASOPHILS % (AUTO) 0.4 % (0-2); EOSINOPHILS % (AUTO) 1.3 % (0-6); HEMATOCRIT 28.6 % (37.9-51.0); HEMOGLOBIN 10.2 g/dL (13.5-17.0); LYMPHOCYTES % (AUTO) 22.4 % (13-45); MEAN CORPUSCULAR HEMOGLOBIN 32.3 pg (27.0-33.4); MEAN CORPUSCULAR HGB CONC 35.7 g/dL (32.0-36.0); MEAN CORPUSCULAR VOLUME 90 fl (80-97); MONOCYTES % (AUTO) 13.5 % (3-13); RED BLOOD COUNT 3.17 10^6/uL (4.35-5.55); RED CELL DISTRIBUTION WIDTH 12.7 % (11.5-14.0); SEGMENTED NEUTROPHILS % (AUTO) 62.4 % (42-78); TOTAL CELLS COUNTED % (AUTO) 100 %; WHITE BLOOD COUNT 6.5 10^3/uL (4.0-10.5)
[2018-08-11 07:58] LABS: PLATELET COUNT 81 10^3/uL (150-450)
[2018-08-11 08:03] LABS: BLOOD UREA NITROGEN 13 mg/dL (7-20); CALCIUM 7.9 mg/dL (8.4-10.2); CARBON DIOXIDE 31 mmol/L (22-30); CHLORIDE 106 mmol/L (98-107); GLUCOSE 89 mg/dL (75-110); POTASSIUM 3.4 mmol/L (3.6-5.0)
[2018-08-11 08:22] LABS: ANION GAP 4 (5-19)
[2018-08-11] MEDS: LORAZEPAM 1 MG TABLET PO SCH ×2 (09:46→21:02)
[2018-08-11] MEDS: FAMOTIDINE 20 MG TABLET PO SCH ×2 (09:46→21:03)
[2018-08-11] MEDS: DOCUSATE SODIUM 100 MG CAPSULE PO SCH ×2 (09:46→17:38)
[2018-08-11] MEDS: CITALOPRAM HYDROBROMIDE 20 MG TABLET PO SCH (09:46)
[2018-08-11] MEDS: TAMSULOSIN HCL 0.4 MG CAP.SR.24H PO SCH (09:46)
[2018-08-11] MEDS: DIVALPROEX SODIUM 500 MG TAB.SR.24H PO SCH ×2 (09:46→21:02)
[2018-08-11] MEDS: FONDAPARINUX SODIUM INJ 2.5 MG/0.5 ML DISP.SYRIN SUBCUT SCH (09:49)
[2018-08-11] MEDS ORDERED: POTASSIUM CHLORIDE 20 MEQ/15 ML UDCUP PO ONE (16:21)
[2018-08-11] MEDS: ERTAPENEM SODIUM 1 GM in NORMAL SALINE 50 ML IV SCH (21:14)
--- NOTE | 2018-08-11 21:37 | PDOC PROGRESS REPORT ---
Subjective Progress Note for:: 08/11/18 Subjective:: The patient is resting comfortably in bed. He is in no distress. He has trouble remembering the events of this hospitalization. Reason For Visit: SIRS, HYPOTENSION,ACUTE UTI Physical Exam Vital Signs: Temp Pulse Resp BP Pulse Ox 97.9 F 72 20 121/67 96 08/11/18 20:14 08/11/18 20:14 08/11/18 20:14 08/11/18 20:14 08/11/18 20:14 Intake & Output 08/10/18 08/11/18 08/12/18 06:59 06:59 06:59 Intake Total 894 840 574 Output Total 1365 1800 600 Balance -471 -960 -26 Weight 56.8 kg 59.3 kg General appearance: PRESENT: no acute distress, other - Frail appearing 63-year-old patient who looks older than his stated age. Mouth exam: PRESENT: moist, tongue midline Neck exam: PRESENT: other - Triple-lumen catheter in right internal jugular vein. Respiratory exam: PRESENT: clear to auscultation carolyn, symmetrical, unlabored. ABSENT: accessory muscle use, rales, rhonchi, wheezes Cardiovascular exam: PRESENT: RRR, +S1, +S2 Extremities exam: ABSENT: pedal edema Neurological exam: PRESENT: alert, awake, oriented to person, oriented to place Psychiatric exam: PRESENT: flat affect. ABSENT: agitated, anxious Results Laboratory Results: 08/11/18 07:06 08/11/18 07:06 08/11/18 08/11/18 07:06 07:06 WBC 6.5 RBC 3.17 L Hgb 10.2 L Hct 28.6 L MCV 90 MCH 32.3 MCHC 35.7 RDW 12.7 Plt Count 81 L Seg Neutrophils % 62.4 Lymphocytes % 22.4 Monocytes % 13.5 H Eosinophils % 1.3 Basophils % 0.4 Absolute Neutrophils 4.1 Absolute Lymphocytes 1.5 Absolute Monocytes 0.9 Absolute Eosinophils 0.1 Absolute Basophils 0.0 Sodium 141.0 Potassium 3.4 L Chloride 106 Carbon Dioxide 31 H Anion Gap 4 L BUN 13 Creatinine 0.61 Est GFR ( Amer) > 60 Est GFR (Non-Af Amer) > 60 Glucose 89 Calcium 7.9 L Magnesium 1.6 08/08/18 17:00 Blood Blood Culture - Final Escherichia Coli 08/08/18 17:31 Blood Blood Culture - Final Escherichia Coli 08/08/18 17:05 Catheterized Urine Urine Culture - Final Escherichia Coli Impressions: Chest X-Ray 08/08/18 16:51 IMPRESSION: NO ACUTE RADIOGRAPHIC FINDING IN THE CHEST. Assessment & Plan - Diagnosis (1) Sepsis Qualifiers: Sepsis type: sepsis due to unspecified organism Qualified Code(s): A41.9 - Sepsis, unspecified organism Is this a current diagnosis for this admission?: Yes Plan: Due to E. coli bacteremia and cystitis. Currently on antibiotic therapy and doing very well. Sepsis resolved. (2) Acute urinary retention Is this a current diagnosis for this admission?: Yes Plan: Stearns catheter removed. Patient voiding spontaneously. (3) Hypotension Is this a current diagnosis for this admission?: Yes Plan: Resolved. The patient is off of vasopressors. - Time Time Spent with patient: Less than 15 minutes Medications reviewed and adjusted accordingly: Yes
[2018-08-12] MEDS: LEVETIRACETAM 500 MG TABLET PO SCH ×2 (06:19→17:26)
[2018-08-12 07:01] LABS: BLOOD UREA NITROGEN 12 mg/dL (7-20); CALCIUM 7.9 mg/dL (8.4-10.2); GLUCOSE 82 mg/dL (75-110); POTASSIUM 3.7 mmol/L (3.6-5.0)
[2018-08-12 07:06] LABS: CARBON DIOXIDE 33 mmol/L (22-30); CHLORIDE 106 mmol/L (98-107); SODIUM 144.1 mmol/L (137-145)
[2018-08-12 07:10] LABS: ANION GAP 5 (5-19)
[2018-08-12] MEDS: POTASSIUM CHLORIDE 20 MEQ/15 ML UDCUP PO SCH (09:15)
[2018-08-12] MEDS: DOCUSATE SODIUM 100 MG CAPSULE PO SCH ×2 (09:16→17:26)
[2018-08-12] MEDS: LORAZEPAM 1 MG TABLET PO SCH ×2 (09:16→21:11)
[2018-08-12] MEDS: CITALOPRAM HYDROBROMIDE 20 MG TABLET PO SCH (09:16)
[2018-08-12] MEDS: TAMSULOSIN HCL 0.4 MG CAP.SR.24H PO SCH (09:16)
[2018-08-12] MEDS: DIVALPROEX SODIUM 500 MG TAB.SR.24H PO SCH ×2 (09:17→21:11)
[2018-08-12] MEDS: FAMOTIDINE 20 MG TABLET PO SCH ×2 (09:17→21:12)
[2018-08-12] MEDS: FONDAPARINUX SODIUM INJ 2.5 MG/0.5 ML DISP.SYRIN SUBCUT SCH (09:17)
--- NOTE | 2018-08-12 14:05 | PDOC PROGRESS REPORT ---
Subjective Progress Note for:: 08/12/18 Subjective:: Patient is eating lunch. He still feels quite weak. He appears to be comfortable. Reason For Visit: SIRS, HYPOTENSION,ACUTE UTI Physical Exam Vital Signs: Temp Pulse Resp BP Pulse Ox 98.2 F 65 16 121/65 100 08/12/18 08:56 08/12/18 08:56 08/12/18 08:56 08/12/18 08:56 08/12/18 08:56 Intake & Output 08/11/18 08/12/18 08/13/18 06:59 06:59 06:59 Intake Total 840 924 Output Total 1800 1975 Balance -960 -1051 Weight 59.3 kg 61.6 kg General appearance: PRESENT: no acute distress, cooperative, thin Head exam: PRESENT: normocephalic Respiratory exam: PRESENT: clear to auscultation carolyn, symmetrical, unlabored. ABSENT: rales, rhonchi, stridor, wheezes Cardiovascular exam: PRESENT: irregular rhythm GI/Abdominal exam: PRESENT: normal bowel sounds, soft. ABSENT: distended, tenderness Extremities exam: ABSENT: pedal edema Neurological exam: PRESENT: alert, awake, oriented to person, oriented to place, oriented to situation Psychiatric exam: PRESENT: appropriate affect, normal mood. ABSENT: agitated, anxious Focused psych exam: ABSENT: restlessness Results Laboratory Results: 08/11/18 07:06 08/12/18 06:27 08/12/18 06:27 Sodium 144.1 Potassium 3.7 Chloride 106 Carbon Dioxide 33 H Anion Gap 5 BUN 12 Creatinine 0.71 Est GFR ( Amer) > 60 Est GFR (Non-Af Amer) > 60 Glucose 82 Calcium 7.9 L 08/08/18 17:00 Blood Blood Culture - Final Escherichia Coli 08/08/18 17:31 Blood Blood Culture - Final Escherichia Coli 08/08/18 17:05 Catheterized Urine Urine Culture - Final Escherichia Coli Impressions: Chest X-Ray 08/08/18 16:51 IMPRESSION: NO ACUTE RADIOGRAPHIC FINDING IN THE CHEST. Assessment & Plan - Diagnosis (1) Sepsis Qualifiers: Sepsis type: sepsis due to unspecified organism Qualified Code(s): A41.9 - Sepsis, unspecified organism Is this a current diagnosis for this admission?: Yes Plan: Due to E. coli bacteremia and cystitis. Currently on antibiotic therapy and doing very well. Sepsis resolved. (2) Acute urinary retention Is this a current diagnosis for this admission?: Yes Plan: Stearns catheter removed. Patient voiding spontaneously. Continue Flomax. (3) Hypotension Is this a current diagnosis for this admission?: Yes Plan: Resolved. The patient is off of vasopressors. (4) Depression Qualifiers: Depression Type: unspecified Qualified Code(s): F32.9 - Major depressive disorder, single episode, unspecified Is this a current diagnosis for this admission?: Yes Plan: The patient is actually been in good spirits. He consistently has a flat affect but appears comfortable. Continue current medication regimen. - Time Time Spent with patient: 15-24 minutes Medications reviewed and adjusted accordingly: Yes
[2018-08-12] MEDS: ERTAPENEM SODIUM 1 GM in NORMAL SALINE 50 ML IV SCH (21:18)
[2018-08-13] MEDS: LEVETIRACETAM 500 MG TABLET PO SCH ×2 (05:51→17:45)
[2018-08-13] MEDS: LORAZEPAM 1 MG TABLET PO SCH ×2 (09:16→21:05)
[2018-08-13] MEDS: TAMSULOSIN HCL 0.4 MG CAP.SR.24H PO SCH (09:16)
[2018-08-13] MEDS: DIVALPROEX SODIUM 500 MG TAB.SR.24H PO SCH ×2 (09:16→21:05)
[2018-08-13] MEDS: CALCIUM CARBONATE 250 MG/VITAMIN D3 125 UNIT TABLET PO SCH (09:16)
[2018-08-13] MEDS: CITALOPRAM HYDROBROMIDE 20 MG TABLET PO SCH (09:16)
[2018-08-13] MEDS: FONDAPARINUX SODIUM INJ 2.5 MG/0.5 ML DISP.SYRIN SUBCUT SCH (09:17)
[2018-08-13] MEDS: POTASSIUM CHLORIDE 20 MEQ/15 ML UDCUP PO SCH (09:17)
[2018-08-13] MEDS: DOCUSATE SODIUM 100 MG CAPSULE PO SCH ×2 (09:17→17:45)
[2018-08-13] MEDS: FAMOTIDINE 20 MG TABLET PO SCH ×2 (09:17→21:05)
--- NOTE | 2018-08-13 11:19 | PDOC PROGRESS REPORT ---
Subjective Progress Note for:: 08/13/18 Subjective:: Patient still feels very weak. Worries about his recovery. Dementia is evident based on the questions he asks. Reason For Visit: SIRS, HYPOTENSION,ACUTE UTI Physical Exam Vital Signs: Temp Pulse Resp BP Pulse Ox 98.3 F 60 16 116/67 99 08/13/18 05:50 08/13/18 07:00 08/13/18 05:50 08/13/18 05:50 08/13/18 05:50 Intake & Output 08/12/18 08/13/18 08/14/18 06:59 06:59 06:59 Intake Total 924 410 Output Total 1975 1700 Balance -1051 -1290 Weight 61.6 kg 61.3 kg General appearance: PRESENT: no acute distress, thin, other - Very frail appearing 63-year-old patient who looks older than his stated age Head exam: PRESENT: other - Temporal wasting Respiratory exam: PRESENT: clear to auscultation carolyn, decreased breath sounds - Poor inspiratory phase, symmetrical, unlabored. ABSENT: chest wall tenderness, rales, stridor Cardiovascular exam: PRESENT: RRR, +S1, +S2 Vascular exam: PRESENT: pallor GI/Abdominal exam: PRESENT: normal bowel sounds, soft. ABSENT: distended, tenderness Rectal exam: PRESENT: deferred Neurological exam: PRESENT: alert, awake, oriented to person, oriented to place Psychiatric exam: PRESENT: flat affect Focused psych exam: ABSENT: restlessness Results Laboratory Results: 08/11/18 07:06 08/12/18 06:27 Impressions: Chest X-Ray 08/08/18 16:51 IMPRESSION: NO ACUTE RADIOGRAPHIC FINDING IN THE CHEST. Assessment & Plan - Diagnosis (1) Sepsis Qualifiers: Sepsis type: Escherichia coli Qualified Code(s): A41.51 - Sepsis due to Escherichia coli [E. coli] Is this a current diagnosis for this admission?: Yes Plan: The patient has only 2 more days of IV antibiotics so I will not change therapy at this point. Sepsis has resolved. (2) Acute urinary retention Is this a current diagnosis for this admission?: Yes Plan: We will attempt to remove Stearns catheter. I will increase his Flomax to 0.8 mg first. (3) Hypotension Is this a current diagnosis for this admission?: Yes Plan: Resolved. The patient is off of vasopressors. (4) Depression Qualifiers: Depression Type: unspecified Qualified Code(s): F32.9 - Major depressive disorder, single episode, unspecified Is this a current diagnosis for this admission?: Yes Plan: The patient is actually been in good spirits. He consistently has a flat affect but appears comfortable. Continue current medication regimen. (5) Dementia Qualifiers: Dementia type: unspecified type Dementia behavioral disturbance: without behavioral disturbance Qualified Code(s): F03.90 - Unspecified dementia without behavioral disturbance Is this a current diagnosis for this admission?: Yes Plan: The patient does have a history of traumatic brain injury. This is likely the precipitant for his memory issues. Continue current regimen. - Time Time Spent with patient: 15-24 minutes Medications reviewed and adjusted accordingly: Yes Anticipated discharge: SNF Within: within 48 hours - Plan Summary Plan Summary: I did asked therapy to assess the patient. He may benefit from bed exercises and range of motion to prevent contraction.
[2018-08-13] MEDS: ERTAPENEM SODIUM 1 GM in NORMAL SALINE 50 ML IV SCH (21:11)
[2018-08-14] MEDS: LEVETIRACETAM 500 MG TABLET PO SCH (06:07)
[2018-08-14 06:35] LABS: HEMATOCRIT 26.9 % (37.9-51.0); HEMOGLOBIN 9.7 g/dL (13.5-17.0); MEAN CORPUSCULAR HEMOGLOBIN 32.4 pg (27.0-33.4); MEAN CORPUSCULAR VOLUME 90 fl (80-97); PLATELET COUNT 156 10^3/uL (150-450); RED CELL DISTRIBUTION WIDTH 12.1 % (11.5-14.0); WHITE BLOOD COUNT 6.8 10^3/uL (4.0-10.5)
[2018-08-14 06:53] LABS: ALBUMIN 2.7 g/dL (3.5-5.0); BLOOD UREA NITROGEN 16 mg/dL (7-20); CALCIUM 8.2 mg/dL (8.4-10.2); CHLORIDE 105 mmol/L (98-107); GLUCOSE 84 mg/dL (75-110); PHOSPHORUS 3.6 mg/dL (2.5-4.5)
[2018-08-14 06:58] LABS: CARBON DIOXIDE 33 mmol/L (22-30); SODIUM 141.3 mmol/L (137-145)
[2018-08-14 07:05] LABS: ANION GAP 3 (5-19)
[2018-08-14 08:48] VITALS: BP 122/68
[2018-08-14] MEDS: POTASSIUM CHLORIDE 20 MEQ/15 ML UDCUP PO SCH (09:25)
[2018-08-14] MEDS: DIVALPROEX SODIUM 500 MG TAB.SR.24H PO SCH (09:25)
[2018-08-14] MEDS: CITALOPRAM HYDROBROMIDE 20 MG TABLET PO SCH (09:25)
[2018-08-14] MEDS: FONDAPARINUX SODIUM INJ 2.5 MG/0.5 ML DISP.SYRIN SUBCUT SCH (09:26)
[2018-08-14] MEDS: DOCUSATE SODIUM 100 MG CAPSULE PO SCH (09:26)
[2018-08-14] MEDS: FAMOTIDINE 20 MG TABLET PO SCH (09:26)
[2018-08-14] MEDS: LORAZEPAM 1 MG TABLET PO SCH (09:26)
[2018-08-14] MEDS: CALCIUM CARBONATE 250 MG/VITAMIN D3 125 UNIT TABLET PO SCH (09:26)
[2018-08-14] MEDS ORDERED: TAMSULOSIN HCL 0.4 MG CAP.SR.24H PO SCH (10:00)
--- NOTE | 2018-08-14 13:03 | PDOC TRANSFER SUMMARY ---
General - Admit/Disc Date/PCP Admission Date/Primary Care Provider: 08/08/18 19:40 Discharge Date: 08/14/18 - Discharge Diagnosis (1) Sepsis Is this a current diagnosis for this admission?: Yes Summary: The patient was initially admitted to the ICU. Urine and blood cultures were p ositive for E. coli. Antibiotic therapy was initiated and the patient did tolerate a complete course. Blood pressure has returned to normal, his not tachycardic and he is afebrile. He still remains very weak. (2) Acute urinary retention Is this a current diagnosis for this admission?: Yes Summary: Likely from the cystitis. I did increase his Flomax to 0.8 mg daily. We will leave the Tsearns catheter in for transfer. I would give the Flomax another day or 2 before removing the catheter. If retention recurs he may need to see urology. (3) Hypotension Is this a current diagnosis for this admission?: Yes Summary: Resolved (4) Depression Is this a current diagnosis for this admission?: Yes Summary: Stable on citalopram. He has a very flat affect and monotone voice. This is likely his baseline. (5) History of traumatic brain injury Is this a current diagnosis for this admission?: Yes Summary: This is a possible etiology for his history of seizure as well as memory loss. He remained on his current medication regimen and has not exhibited any seizure activity. (6) Dementia Is this a current diagnosis for this admission?: Yes Summary: As noted above this may be related to his history of traumatic brain injury. His dementia (without behavioral disturbance) is obvious based on the recurrent questions that he has. He also does not recall being at [facility]. He believes that he still lives with his in-laws. - Additional Information Resuscitation Status: Full Code Discharge Diet: Regular Discharge Activity: Balance Activity w/Rest Home Medications: Divalproex Sodium [Divalproex Sodium ER] 500 mg PO Q12 04/26/17 Lorazepam [Ativan 1 mg Tablet] 1 mg PO Q12 04/26/17 Acetaminophen [Tylenol] 650 mg PO Q8HP PRN 07/07/18 Cold Cream/Zinc Oxide/Star/Abram [Dermacloud Ointment] 1 dose TP PRN PRN 07/07/18 Guaifenesin [Robafen] 10 ml PO Q4HP PRN 07/07/18 Loperamide HCl [Anti-Diarrhea] 2 mg PO Q6HP PRN MDD 8MG 07/07/18 Magnesium Hydroxide [Milk of Magnesia 30 ml Udcup] 30 ml PO DAILYP PRN MDD 60ML 07/07/18 Levetiracetam [Keppra 500 mg Tablet] 1,000 mg PO Q12A #60 tablet 07/21/18 Citalopram Hydrobromide [Celexa 10 mg Tablet] 30 mg PO DAILY 08/08/18 Acetaminophen [Tylenol 325 mg Tablet] 650 mg PO Q4HP PRN tablet 08/14/18 Calcium Carbonate/Vitamin D3 [Os-Marco A 250 mg with Vitamin D 125 Units] 1 tab PO D AILY tablet 08/14/18 Citalopram Hydrobromide [Celexa 20 mg Tablet] 30 mg PO DAILY tablet 08/14/18 Docusate Sodium [Colace 100 mg Capsule] 100 mg PO BID capsule 08/14/18 Potassium Chloride [Kaon-Cl 20 Meq/15 ml Udcup] 20 meq PO DAILY #0 udc 08/14/18 Tamsulosin HCl [Flomax 0.4 mg Cap.sr] 0.8 mg PO DAILY cap.sr.24h 08/14/18 History of Present Illness Admission Date/PCP: 08/08/18 19:40 Patient complains of: Abdominal pain History of Present Illness: SHON PAZ is a 63 year old male who resides at [facility]. He was complaining of abdominal discomfort. He was referred to the emergency department for evaluation. A Stearns catheter was placed and 1.7 L of urine was released from the bladder. Urine and blood cultures were obtained. The patient is a poor historian so it is unclear how long before transfer he was having symptoms. Hospital Course Hospital Course: The patient was admitted to the ICU for sepsis. He required IV fluids and vasopressors. He was given broad-spectrum antibiotic therapy. After several days of antibiotic therapy he improved enough to transition to IMCU. He completed his antibiotic therapy there. He is antidepressant and antiseizure medications were uninterrupted. He had no evidence of seizure activity during his hospitalization. His blood pressure improved and has been stable. He does have increased weakness although I am not aware of his actual baseline. He may benefit from physical therapy but I will defer to [facility] to determine if he is at his baseline or not. Because of the acute urinary retention I did increase his Flomax to 0.8 mg. The retention may have been due to the cystitis and I will defer to the physician at [facility] as to when to remove the Stearns catheter. The patient did complete his course of antibiotics during this hospitalization and does not require additional antibiotics on discharge. Physical Exam Vital Signs: Temp Pulse Resp BP Pulse Ox 97.5 F 67 16 122/68 97 08/14/18 08:35 08/14/18 08:35 08/14/18 08:35 08/14/18 08:35 08/14/18 08:35 Intake & Output 08/13/18 08/14/18 08/15/18 06:59 06:59 06:59 Intake Total 410 1413 Output Total 1700 2200 Balance -1290 -787 Weight 61.3 kg 59.8 kg General appearance: PRESENT: no acute distress, thin - And frail appearing 63-year-old patient who looks older than his stated age. Eye exam: PRESENT: conjunctiva pale, EOMI. ABSENT: scleral icterus Ear exam: PRESENT: normal external ear exam Mouth exam: PRESENT: dry mucosa Neck exam: ABSENT: carotid bruit, lymphadenopathy Respiratory exam: PRESENT: clear to auscultation carolyn - Limited inspiratory effort., symmetrical, unlabored. ABSENT: accessory muscle use, rales, rhonchi, wheezes Cardiovascular exam: PRESENT: RRR, +S1, +S2 GI/Abdominal exam: PRESENT: normal bowel sounds, soft. ABSENT: distended, guarding, tenderness Rectal exam: PRESENT: deferred Gentrourinary exam: PRESENT: indwelling catheter Extremities exam: ABSENT: calf tenderness Musculoskeletal exam: PRESENT: other - Decreased muscle mass Neurological exam: PRESENT: alert, awake, oriented to person, oriented to place - He knows he is in the hospital but does not recall being [facility]. Psychiatric exam: PRESENT: flat affect. ABSENT: agitated, anxious Focused psych exam: ABSENT: restlessness Skin exam: PRESENT: pallor Results Laboratory Results: 08/14/18 06:10 08/14/18 06:10 08/14/18 08/14/18 06:10 06:10 WBC 6.8 RBC 3.00 L Hgb 9.7 L Hct 26.9 L MCV 90 MCH 32.4 MCHC 36.0 RDW 12.1 Plt Count 156 Sodium 141.3 Potassium 4.0 Chloride 105 Carbon Dioxide 33 H Anion Gap 3 L BUN 16 Creatinine 0.68 Est GFR ( Amer) > 60 Est GFR (Non-Af Amer) > 60 Glucose 84 Calcium 8.2 L Phosphorus 3.6 Magnesium 1.7 Albumin 2.7 L Impressions: Chest X-Ray 08/08/18 16:51 IMPRESSION: NO ACUTE RADIOGRAPHIC FINDING IN THE CHEST. Transfer Plan - Disposition Transfer Plan: The patient no longer requires antibiotics. His vital signs have been stable. He is appropriate to return to [facility]. I will defer to his physician at that facility to determine if physical therapy is required. I will also def er regarding removal of the Stearns catheter. - Time Spent with Patient Time spent with patient: Greater than 30 Minutes Qualifiers - * PATIENT BEING DISCHARGED WITH ANY OF THE FOLLOWING DIAGNOSIS: No Plan Discharge Plan: As described above Time Spent: Greater than 30 Minutes
== END 2018-08-14 14:51 | DRG 872 ==
LOC: ER 16:35 → EH 19:40 → ICU 08-09 03:40 → 3N 08-10 18:51
PROVIDERS: ADMIT Emergency Medicine; ATTEND Emergency Medicine
DX: A41.51 Sepsis due to Escherichia coli [E. coli] (principal); N30.01 Acute cystitis with hematuria; B96.20 Unspecified Escherichia coli [E. coli] as the cause of diseases classified elsewhere; R33.9 Retention of urine, unspecified; D69.6 Thrombocytopenia, unspecified; G40.909 Epilepsy, unspecified, not intractable, without status epilepticus; E11.65 Type 2 diabetes mellitus with hyperglycemia; I10 Essential (primary) hypertension; K21.9 Gastro-esophageal reflux disease without esophagitis; F03.90 Unspecified dementia, unspecified severity, without behavioral disturbance, psychotic disturbance, mood disturbance, and anxiety; F32.9 Major depressive disorder, single episode, unspecified; Z79.899 Other long term (current) drug therapy; Z87.820 Personal history of traumatic brain injury; Z90.49 Acquired absence of other specified parts of digestive tract; Z88.8 Allergy status to other drugs, medicaments and biological substances
CPT/HCPCS: 36415; 51702; 71045; 80048; 80053; 80069; 80164; 80177; 81001; 82803; 82962; 83036; 83605; 83735; 84439; 84443; 84481; 85025; 85027; 85610; 87040; 87077; 87086; 87088; 87186; 93005; 93010; 94799; 96361; 96365; 99291; C1751; J1335; J1644; J1652; J2270; J2543; J3490; J7030; J7060

== ENCOUNTER 2019-01-29 10:37 | Inpatient (IN) | payer MEDICAID, MEDICARE ==
[2019-01-29 11:39] LABS: ALANINE AMINOTRANSFERASE 15 U/L (21-72); ALBUMIN 3.1 g/dL (3.5-5.0); ALKALINE PHOSPHATASE 56 U/L (38-126); ANION GAP 14 (5-19); ASPARTATE AMINO TRANSFERASE 16 U/L (17-59); BILIRUBIN,DIRECT 0.4 mg/dL (0.0-0.4); BILIRUBIN,TOTAL 0.5 mg/dL (0.2-1.3); BLOOD UREA NITROGEN 100 mg/dL (7-20); CALCIUM 8.8 mg/dL (8.4-10.2); CARBON DIOXIDE 21 mmol/L (22-30); CHLORIDE 100 mmol/L (98-107); CREATINE KINASE 137 U/L (55-170); GLUCOSE 81 mg/dL (75-110); POTASSIUM 4.7 mmol/L (3.6-5.0); SODIUM 134.6 mmol/L (137-145); TOTAL PROTEIN 6.1 g/dL (6.3-8.2)
[2019-01-29 11:41] LABS: VENOUS BLOOD BASE EXCESS -4.1 mmol/L; VENOUS BLOOD PCO2 38.6 mmHg (35-63); VENOUS BLOOD PH 7.35 (7.30-7.42)
[2019-01-29 11:49] LABS: ABSOLUTE MONOCYTES (AUTO) 0.7 10^3/uL (0.1-1.4); ABSOLUTE NEUT (AUTO) 5.8 10^3/uL (1.7-8.2); BASOPHILS % (AUTO) 0.3 % (0-2); EOSINOPHILS % (AUTO) 0.6 % (0-6); HEMOGLOBIN 11.4 g/dL (13.5-17.0); LYMPHOCYTES % (AUTO) 12.9 % (13-45); MEAN CORPUSCULAR HEMOGLOBIN 32.3 pg (27.0-33.4); MEAN CORPUSCULAR HGB CONC 35.7 g/dL (32.0-36.0); MEAN CORPUSCULAR VOLUME 90 fl (80-97); MONOCYTES % (AUTO) 9.6 % (3-13); PLATELET COUNT 117 10^3/uL (150-450); RED BLOOD COUNT 3.54 10^6/uL (4.35-5.55); RED CELL DISTRIBUTION WIDTH 13.8 % (11.5-14.0); SEGMENTED NEUTROPHILS % (AUTO) 76.6 % (42-78); TOTAL CELLS COUNTED % (AUTO) 100 %; WHITE BLOOD COUNT 7.6 10^3/uL (4.0-10.5)
--- NOTE | 2019-01-29 12:06 | RADIOLOGY REPORT (SQ) ---
EXAM DESCRIPTION: CHEST SINGLE VIEW COMPLETED DATE/TIME: 01/29/2019 11:27 am REASON FOR STUDY: Abnormal lab work COMPARISON: 08/08/2018 EXAM PARAMETERS: NUMBER OF VIEWS: One view. TECHNIQUE: Single frontal radiographic view of the chest acquired. RADIATION DOSE: NA LIMITATIONS: None. FINDINGS: LUNGS AND PLEURA: No opacities, masses or pneumothorax. No pleural effusion. MEDIASTINUM AND HILAR STRUCTURES: No masses. Contour normal. HEART AND VASCULAR STRUCTURES: Heart normal in size. Normal vasculature. BONES: No acute findings. HARDWARE: None in the chest. OTHER: No other significant finding. IMPRESSION: NO ACUTE RADIOGRAPHIC FINDING IN THE CHEST. TECHNICAL DOCUMENTATION: JOB ID: [id number] [employer]- All Rights Reserved Reading location - IP/workstation name: [email or web address]
--- NOTE | 2019-01-29 12:15 | ER Document Report ---
Entered by OSNG MERINO SCRIBE 01/29/19 1149 Acting as scribe for:LUAN KAY MD ED General - General Chief Complaint: Abnormal Lab Results Stated Complaint: ABNORMAL LABS Time Seen by Provider: 01/29/19 11:03 Notes: Patient is a 63-year-old male presenting to the emergency department via EMS for abnormal lab results. Patient was sent here by [facility] [place] [facility], staff called this morning noticing that his creatinine was high, his carbon dioxide was low, his blood sugar was low. Patient has been experiencing hematuria for the last several days. He does have a chronic Stearns catheter. TRAVEL OUTSIDE OF THE [place] IN LAST 30 DAYS: No - Related Data Allergies/Adverse Reactions: clonazepam [From Klonopin] Allergy (Verified 04/21/17 23:26) Past Medical History - General Information source: Patient - Social History Smoking Status: Unknown if Ever Smoked Cigarette use (# per day): No Chew tobacco use (# tins/day): No Frequency of alcohol use: None Drug Abuse: None Family History: COPD Patient has suicidal ideation: No Patient has homicidal ideation: No - Past Medical History Cardiac Medical History: Reports: Hx Hypertension, Hx Heart Murmur - As an adolescent(functional) Pulmonary Medical History: Reports: Hx Sleep Apnea - Not on C-PAP currently Neurological Medical History: Reports: Hx Seizures - on Keppra and Depakote Endocrine Medical History: Reports: Hx Diabetes Mellitus Type 2 Renal/ Medical History: Reports: Hx Benign Prostatic Hyperplasia GI Medical History: Reports: Hx Gastroesophageal Reflux Disease - No meds Psychiatric Medical History: Reports: Hx Dementia - TBI, Hx Depression - PTSD Traumatic Medical History: Reports: Hx Fractures - Hx of fx fingers , Hx Traumatic Brain Injury Past Surgical History: Reports: Hx Bowel Surgery, Hx Cholecystectomy, Hx Oral Surgery - Had all teeth pulled earlier today, Hx Tonsillectomy, Other - Colectomy for villous adenoma - Immunizations Hx Diphtheria, Pertussis, Tetanus Vaccination: Yes Hx Pneumococcal Vaccination: 10/31/11 Review of Systems - Review of Systems -: Yes ROS unobtainable due to patient's medical condition - Unable to obtain due to patient having dementia Constitutional: No symptoms reported EENT: No symptoms reported Cardiovascular: No symptoms reported Respiratory: No symptoms reported Gastrointestinal: No symptoms reported Genitourinary: No symptoms reported Male Genitourinary: No symptoms reported Musculoskeletal: No symptoms reported Skin: No symptoms reported Hematologic/Lymphatic: No symptoms reported Neurological/Psychological: See HPI, Dementia -: Yes All other systems reviewed and negative Physical Exam - Vital signs Vitals: Temp Pulse Resp BP Pulse Ox 98.3 F 68 18 115/49 L 100 01/29/19 10:59 01/29/19 10:59 01/29/19 10:59 01/29/19 10:59 01/29/19 10:59 - Notes Notes: Physical Exam: General: Alert, appears well, confused, dementia, mouth dry. HEENT: Normocephalic. Atraumatic. PERRL. Extraocular movements intact. Oropharynx clear. Neck: Supple. Non-tender. Respiratory: No respiratory distress. Clear and equal breath sounds bilaterally. Cardiovascular: Regular rate and rhythm. Abdominal: Normal Inspection. Non-tender. No distension. Normal Bowel Sounds. Back: Non-tender. No deformity or step off. Extremities: Moves all four extremities. Upper extremities:Edema present in the left hand. Handgrip strength is 5/5. Normal ROM. Lower extremities: Normal inspection. No edema. Normal ROM. Neurological: Normal cognition. AAOx4. Normal speech. Psychological: Normal affect. Normal Mood. Skin: Warm. Dry. Normal color. Course - Re-evaluation Re-evalutation: 01/29/19 14:19 The Stearns catheter did have some bloody urine in it and in the bag. Patient was sent for renal ultrasound due to his acutely elevated creatinine. On ultrasound they found that his bladder was distended at greater than 1300 mL's, and the Stearns balloon was not in the bladder. 01/29/19 15:58 A coud Stearns catheter was placed and the patient has been draining darell- colored urine without clots noted. - Vital Signs Vital signs: Temp Pulse Resp BP Pulse Ox 98.3 F 68 18 115/49 L 100 01/29/19 10:59 01/29/19 10:59 01/29/19 10:59 01/29/19 10:59 01/29/19 10:59 - Laboratory Result Diagrams: 01/29/19 10:55 01/29/19 10:55 Laboratory results interpreted by me: 01/29/19 01/29/19 01/29/19 10:55 10:55 12:05 RBC 3.54 L Hgb 11.4 L Hct 32.0 L Plt Count 117 L Lymphocytes % 12.9 L Sodium 134.6 L Carbon Dioxide 21 L BUN 100 H Creatinine 9.10 H Est GFR ( Amer) 7 L Est GFR (Non-Af Amer) 6 L AST 16 L ALT 15 L Total Protein 6.1 L Albumin 3.1 L Urine Protein >=500 H Urine Blood LARGE H Ur Leukocyte Esterase MODERATE H - Diagnostic Test Radiology reviewed: Image reviewed, Reports reviewed - Bladder distention, mild bilateral hydronephrosis, no Stearns balloon seen in the bladder. - EKG Interpretation by Me EKG shows normal: Sinus rhythm, [place], Intervals, QRS Complexes, ST-T Waves Rate: Normal - 67 Rhythm: NSR [place]/QRS: Left axis deviation When compared to previous EKG there are: No significant change - Consults Dr. Abernathy Time consulted: 15:50 Consulted provider: will come to ER Critical Care Note - Critical Care Note Total time excluding time spent on procedures (mins): 40 Discharge - Discharge Clinical Impression: Acute urinary retention Malfunction of Stearns catheter Qualifiers: Encounter type: initial encounter Qualified Code(s): T83.011A - Breakdown (mechanical) of indwelling urethral catheter, initial encounter Acute renal failure Qualifiers: Acute renal failure type: unspecified Qualified Code(s): N17.9 - Acute kidney failure, unspecified Urinary tract infection Qualifiers: Urinary tract infection type: catheter-associated UTI Indwelling urinary catheter type: indwelling urethral catheter Encounter type: initial encounter Qualified Code(s): T83.511A - Infection and inflammatory reaction due to indwelling urethral catheter, initial encounter Dementia Qualifiers: Dementia type: unspecified type Dementia behavioral disturbance: without behavioral disturbance Qualified Code(s): F03.90 - Unspecified dementia without behavioral disturbance Condition: Stable Disposition: ADMITTED INPATIENT Admitting Provider: Josemanuel (Hospitalist) Unit Admitted: Medical Floor Scribe Attestation: 01/29/19 11:50 I personally performed the services described in the documentation, reviewed and edited the documentation which was dictated to the scribe in my presence, and it accurately records my words and actions. I personally performed the services described in the documentation, reviewed and edited the documentation which was dictated to the scribe in my presence, and it accurately records my words and actions.
[2019-01-29] MEDS ORDERED: NORMAL SALINE 1000 ML 250 ML IV ONE (12:24)
[2019-01-29 13:11] LABS: APPEARANCE,URINE CLEAR; BILIRUBIN,URINE NEGATIVE (NEGATIVE); GLUCOSE, URINE NEGATIVE (NEGATIVE); KETONES,URINE NEGATIVE (NEGATIVE); LEUKOCYTE ESTERASE,URINE MODERATE (NEGATIVE); NITRITE,URINE NEGATIVE (NEGATIVE); PROTEIN,URINE >=500 mg/dL (NEGATIVE); URINE SPECIFIC GRAVITY 1.012; UROBILINOGEN,URINE NEGATIVE mg/dL (<2.0)
[2019-01-29 13:12] LABS: COLOR,URINE RED
[2019-01-29] MEDS ORDERED: LIDOCAINE 2% URO-JET 5 ML KIT MM ONE (14:17)
--- NOTE | 2019-01-29 14:31 | RADIOLOGY REPORT (SQ) ---
EXAM DESCRIPTION: U/S RETROPERITON (RENAL/AORTA) COMPLETED DATE/TIME: 01/29/2019 2:11 pm REASON FOR STUDY: Acute renal failure, renal US COMPARISON: 07/08/2018 TECHNIQUE: Dynamic and static grayscale images acquired of the kidneys and bladder and recorded on P ACS. Additional selected color Doppler and spectral images recorded. LIMITATIONS: None. FINDINGS: RIGHT KIDNEY: Normal size. Normal echogenicity. No solid or suspicious masses. Mode rate hydronephrosis. No calcifications. LEFT KIDNEY: Normal size. Normal echogenicity. No solid or suspicious masses. Moderate hydrone phrosis. No calcifications. BLADDER: Distended. OTHER FINDINGS: No other significant finding. IMPRESSION: Bilateral hydronephrosis, likely related to bladder outlet obstruction. TECHNICAL DOCUMENTATION: JOB ID: [id number] [employer]- All Rights Reserved Reading location - IP/workstation name: [email or web address]
[2019-01-29] MEDS ORDERED: ONDANSETRON HCL INJ/PF 4 MG/2 ML SDV IV PRN (16:11)
[2019-01-29] MEDS ORDERED: ACETAMINOPHEN 325 MG TABLET PO PRN (16:11)
[2019-01-29] MEDS ORDERED: NORMAL SALINE 1000 ML 1,000 ML IV PRN ×2 (16:11→17:05)
[2019-01-29] MEDS ORDERED: IPRATROPIUM/ALBUTEROL 0.5-2.5 MG/3 ML AMPUL NEB PRN (16:11)
[2019-01-29] MEDS ORDERED: PROMETHAZINE HCL INJ 25 MG/1 ML VIAL IV PRN (16:11)
--- NOTE | 2019-01-29 16:58 | PDOC H&P ---
History of Present Illness Admission Date/PCP: AMANDA VALERO MD History of Present Illness: SHON PAZ is a 63 year old male past medical history of hypertension, NEMO, seizure disorder, diabetes, BPH, GERD, dementiaTBI, depression, PTSD, resident of [facility] who was brought to ED by EMS due to abnormal labs. As per usp report patient has been having hematuria for the last several days. He has a chronic indwelling Stearns catheter for his BPH and sees a urologist as outpatient. In ED it was noted that the patient had bloody urine in the Stearns bag, elevated creatinine, a bedside ultrasound showed distended bladder with residuals of more than 1300 mL's and Stearns balloon was noted to not in the bladder. A second Stearns catheter was placed and patient drained dark-colored urine without any clots noted. As per ED physician's conversation with me Dr. Iglesia Quiñones from nephrology was called and he has stated that he can be consulted if needed. On my encounter patient is resting in bed in no apparent distress, alert and cooperative with physical examination, oriented to himself, does not provide any history except that he is not in any pain but he is in discomfort and he has prostate problem. Inspection of Stearns bag shows dark urine without any gross blood or blood clots. He denies any fever, chills, nausea, vomiting, diarrhea, constipation or any urinary symptoms. Past Medical History Cardiac Medical History: Reports: Hypertension, Heart Murmur - As an adolescent(functional) Pulmonary Medical History: Reports: Sleep Apnea - Not on C-PAP currently Denies: Asthma, Chronic Obstructive Pulmonary Disease (COPD) Neurological Medical History: Reports: Seizures - on Keppra and Depakote Endocrine Medical History: Reports: Diabetes Mellitus Type 2 Denies: Diabetes Mellitus Type 1, Hyperthyroidism, Hypothyroidism GI Medical History: Reports: Gastroesophageal Reflux Disease - No meds Denies: Cirrhosis, Hepatitis Musculoskeltal Medical History: Denies: Arthritis, Gout Skin Medical History: Denies: Eczema, Psoriasis Psychiatric Medical History: Reports: Dementia - TBI, Depression - PTSD Traumatic Medical History: Reports: Traumatic Brain Injury Hematology: Reports: Anemia Denies: Bleeding Tendencies Past Surgical History Past Surgical History: Reports: Cholecystectomy, Tonsillectomy, Other - Colectomy for villous adenoma Social History Smoking Status: Unknown if Ever Smoked Frequency of Alcohol Use: None Hx Recreational Drug Use: No Drugs: None Hx Prescription Drug Abuse: No Family History Family History: COPD Parental Family History Reviewed: No - Altered Children Family History Reviewed: NA Sibling(s) Family History Reviewed.: NA Medication/Allergy Allergies/Adverse Reactions: clonazepam [From Klonopin] Allergy (Verified 04/21/17 23:26) Review of Systems ROS unobtainable: Due to mental status Physical Exam Vital Signs: Temp Pulse Resp BP Pulse Ox 98.3 F 68 18 115/49 L 100 01/29/19 10:59 01/29/19 10:59 01/29/19 10:59 01/29/19 10:59 01/29/19 10:59 Intake & Output 01/28/19 01/29/19 01/30/19 06:59 06:59 06:59 Intake Total 250 Balance 250 Weight 64.9 kg General appearance: PRESENT: no acute distress, well-developed, well-nourished Respiratory exam: PRESENT: clear to auscultation carolyn. ABSENT: rales, rhonchi, wheezes Cardiovascular exam: PRESENT: RRR. ABSENT: diastolic murmur, rubs, systolic murmur Pulses: PRESENT: normal dorsalis pedis pul GI/Abdominal exam: PRESENT: normal bowel sounds, soft. ABSENT: distended, guarding, mass, organolmegaly, rebound, tenderness Extremities exam: PRESENT: full ROM. ABSENT: calf tenderness, clubbing, pedal edema Neurological exam: PRESENT: alert, awake, oriented to person, CN II-XII grossly intact, motor sensory deficit Results Laboratory Results: 01/29/19 10:55 01/29/19 10:55 01/29/19 01/29/19 01/29/19 10:55 10:55 10:55 WBC 7.6 RBC 3.54 L Hgb 11.4 L Hct 32.0 L MCV 90 MCH 32.3 MCHC 35.7 RDW 13.8 Plt Count 117 L Seg Neutrophils % 76.6 Lymphocytes % 12.9 L Monocytes % 9.6 Eosinophils % 0.6 Basophils % 0.3 Absolute Neutrophils 5.8 Absolute Lymphocytes 1.0 Absolute Monocytes 0.7 Absolute Eosinophils 0.0 Absolute Basophils 0.0 VBG pH VBG pCO2 VBG HCO3 VBG Base Excess Sodium 134.6 L Potassium 4.7 Chloride 100 Carbon Dioxide 21 L Anion Gap 14 BUN 100 H Creatinine 9.10 H Est GFR ( Amer) 7 L Est GFR (Non-Af Amer) 6 L Glucose 81 Lactic Acid 0.7 Calcium 8.8 Total Bilirubin 0.5 AST 16 L ALT 15 L Alkaline Phosphatase 56 Total Protein 6.1 L Albumin 3.1 L Urine Color Urine Appearance Urine pH Ur Specific [place] Urine Protein Urine Glucose (UA) Urine Ketones Urine Blood Urine Nitrite Ur Leukocyte Esterase Urine WBC (Auto) Urine RBC (Auto) 01/29/19 01/29/19 10:55 12:05 WBC RBC Hgb Hct MCV MCH MCHC RDW Plt Count Seg Neutrophils % Lymphocytes % Monocytes % Eosinophils % Basophils % Absolute Neutrophils Absolute Lymphocytes Absolute Monocytes Absolute Eosinophils Absolute Basophils VBG pH 7.35 VBG pCO2 38.6 VBG HCO3 21.0 VBG Base Excess -4.1 Sodium Potassium Chloride Carbon Dioxide Anion Gap BUN Creatinine Est GFR ( Amer) Est GFR (Non-Af Amer) Glucose Lactic Acid Calcium Total Bilirubin AST ALT Alkaline Phosphatase Total Protein Albumin Urine Color RED Urine Appearance CLEAR Urine pH 6.0 Ur Specific [place] 1.012 Urine Protein >=500 H Urine Glucose (UA) NEGATIVE Urine Ketones NEGATIVE Urine Blood LARGE H Urine Nitrite NEGATIVE Ur Leukocyte Esterase MODERATE H Urine WBC (Auto) >182 Urine RBC (Auto) >182 01/29/19 01/29/19 10:55 10:55 Creatine Kinase 137 Troponin I < 0.012 Impressions: Chest X-Ray 01/29/19 11:09 IMPRESSION: NO ACUTE RADIOGRAPHIC FINDING IN THE CHEST. Renal Ultrasound 01/29/19 12:25 IMPRESSION: Bilateral hydronephrosis, likely related to bladder outlet obstruction. Assessment and Plan - Diagnosis (1) AZRA (acute kidney injury) Is this a current diagnosis for this admission?: Yes Plan: Postrenal. Due to obstructive uropathy caused by underlying BPH and Stearns catheter malfunction. Replace Stearns cath. Cautious hydration guided by volume status and electrolytes, strict in and out, avoid nephrotoxic meds, consult nephrology, monitor for postobstructive diuresis. Monitor urine output, if postobstructive diuresis occurs replace 75% of urine loss with 0.45% NS. Bilateral ultrasound positive for bilateral hydronephrosis most likely due to obstructive uropathy. UA positive for leukocyte esterase likely catheter associated UTI. (2) UTI (urinary tract infection) Qualifiers: Urinary tract infection type: catheter-associated UTI Indwelling urinary catheter type: indwelling urethral catheter Encounter type: initial encounter Qualified Code(s): T83.511A - Infection and inflammatory reaction due to indwelling urethral catheter, initial encounter; N39.0 - Urinary tract infection, site not specified Is this a current diagnosis for this admission?: Yes Plan: Catheter associated UTI. Likely due to gram-negative including E. coli. Recurrent E. coli UTI. Replace Stearns, broad-spectrum IV antibiotics, urine culture. (3) Obstructive uropathy Is this a current diagnosis for this admission?: Yes Plan: Due to underlying BPH and Stearns catheter malfunction. Replace Stearns. Monitor volume status. Patient has outpatient neurology care. Follow-up with outpatient neurology. (4) Dementia Qualifiers: Dementia type: unspecified type Dementia behavioral disturbance: without behavioral disturbance Qualified Code(s): F03.90 - Unspecified dementia without behavioral disturbance Is this a current diagnosis for this admission?: Yes Plan: Due to TBI. Supportive measures. Restart home meds. (5) DM II (diabetes mellitus, type II), controlled Qualifiers: Diabetes mellitus chcf insulin use: without long term care pharmacist use Diabetes mellitus complication status: with hyperglycemia Qualified Code(s): E11.65 - Type 2 diabetes mellitus with hyperglycemia Is this a current diagnosis for this admission?: Yes Plan: Diabetic diet, sliding scale insulin, long-acting insulin, pre-meal insulin, hypoglycemic protocol, Accu-Chek. Adjust dosage as needed. (6) History of traumatic brain injury Is this a current diagnosis for this admission?: Yes Plan: Supportive measures. Fall, seizure, aspiration precautions. (7) HTN (hypertension) Qualifiers: Hypertension type: essential hypertension Qualified Code(s): I10 - Essential (primary) hypertension Is this a current diagnosis for this admission?: Yes Plan: Monitor vitals. Restart home meds. Adjust meds as needed. IV hydralazine PRN. (8) Seizure disorder Is this a current diagnosis for this admission?: Yes Plan: Seizure precautions. Restart home meds.
[2019-01-29] MEDS ORDERED: GUAIFENESIN SYRP 200 MG/10 ML UDC PO PRN (17:07)
[2019-01-29] MEDS ORDERED: (PENDING PHARMACY ID) (Divalproex Sodium [Depakote] 500 MG) PO SCH (17:15)
[2019-01-29] MEDS ORDERED: CITALOPRAM HYDROBROMIDE 30 MG PO SCH (17:15)
[2019-01-29] MEDS: TAMSULOSIN HCL 0.4 MG CAP.SR.24H PO SCH (18:48)
[2019-01-29] MEDS: LORAZEPAM 0.5 MG TABLET PO SCH (18:48)
[2019-01-29] MEDS: OXYCODONE-ACETAMINOPHEN 5-325 MG TABLET PO PRN (21:57)
[2019-01-29] MEDS: LEVETIRACETAM 500 MG TABLET PO SCH (21:57)
[2019-01-29] MEDS: HEPARIN SOD (PORCINE) 5,000 UNIT/ML 1 ML SYRINGE SUBCUT SCH (21:57)
[2019-01-29] MEDS: FAMOTIDINE 20 MG TABLET PO SCH (21:58)
[2019-01-29] MEDS: DIVALPROEX SODIUM 500 MG TAB.SR.24H PO SCH (22:02)
--- NOTE | 2019-01-30 00:40 | EKG REPORT ---
SEVERITY:- OTHERWISE NORMAL ECG - SINUS RHYTHM LEFT AXIS DEVIATION : Confirmed by: Annika Coppola 30-Jan-2019 00:39:46
[2019-01-30] MEDS: OXYCODONE-ACETAMINOPHEN 5-325 MG TABLET PO PRN ×2 (03:39→12:57)
[2019-01-30] MEDS: HEPARIN SOD (PORCINE) 5,000 UNIT/ML 1 ML SYRINGE SUBCUT SCH ×3 (05:28→21:15)
[2019-01-30 06:27] LABS: ABSOLUTE EOSINOPHILS # (AUTO) 0.1 10^3/uL (0.0-0.6); ABSOLUTE LYMPHOCYTES (AUTO) 1.4 10^3/uL (0.5-4.7); ABSOLUTE MONOCYTES (AUTO) 0.6 10^3/uL (0.1-1.4); ABSOLUTE NEUT (AUTO) 2.9 10^3/uL (1.7-8.2); BASOPHILS % (AUTO) 0.3 % (0-2); EOSINOPHILS % (AUTO) 2.5 % (0-6); HEMATOCRIT 28.9 % (37.9-51.0); HEMOGLOBIN 10.4 g/dL (13.5-17.0); LYMPHOCYTES % (AUTO) 28.5 % (13-45); MEAN CORPUSCULAR HEMOGLOBIN 32.6 pg (27.0-33.4); MEAN CORPUSCULAR HGB CONC 36.1 g/dL (32.0-36.0); MEAN CORPUSCULAR VOLUME 90 fl (80-97); MONOCYTES % (AUTO) 11.4 % (3-13); PLATELET COUNT 116 10^3/uL (150-450); RED CELL DISTRIBUTION WIDTH 13.3 % (11.5-14.0); SEGMENTED NEUTROPHILS % (AUTO) 57.3 % (42-78); TOTAL CELLS COUNTED % (AUTO) 100 %
[2019-01-30 06:48] LABS: ANION GAP 5 (5-19); CALCIUM 8.4 mg/dL (8.4-10.2); CARBON DIOXIDE 26 mmol/L (22-30); CHLORIDE 112 mmol/L (98-107); GLUCOSE 73 mg/dL (75-110); POTASSIUM 4.4 mmol/L (3.6-5.0); SODIUM 142.7 mmol/L (137-145)
[2019-01-30 07:21] LABS: BLOOD UREA NITROGEN 49 mg/dL (7-20)
[2019-01-30] MEDS: LEVETIRACETAM 500 MG TABLET PO SCH ×2 (09:33→21:14)
[2019-01-30] MEDS: CITALOPRAM HYDROBROMIDE 20 MG TABLET PO SCH (09:33)
[2019-01-30] MEDS: LORAZEPAM 0.5 MG TABLET PO SCH ×2 (09:33→17:24)
[2019-01-30] MEDS: DIVALPROEX SODIUM 500 MG TAB.SR.24H PO SCH ×2 (09:33→21:14)
[2019-01-30] MEDS: FAMOTIDINE 20 MG TABLET PO SCH ×2 (09:34→21:15)
[2019-01-30] MEDS: DOCUSATE SODIUM 100 MG/10 ML UDC PO SCH (09:34)
[2019-01-30] MEDS: LEVOFLOXACIN 500 MG/D5W RTU 500 MG/100 ML RTUPB IV SCH (09:34)
--- NOTE | 2019-01-30 16:28 | PDOC PROGRESS REPORT ---
Subjective Progress Note for:: 01/30/19 Subjective:: 01/30/2019. No acute events overnight. Patient alert x3, complaining of suprapubic pain, p.o. tolerant, denies any fever, chills, nausea, vomiting, diarrhea, constipation. Sodium 142.7, potassium 4.4, bicarb 26, creatinine 2.02, Reason For Visit: ZARA,OBSTRUCTIVE UROPATHY Physical Exam Vital Signs: Temp Pulse Resp BP Pulse Ox 98.6 F 93 18 132/65 H 98 01/30/19 12:18 01/30/19 14:00 01/30/19 12:18 01/30/19 12:18 01/30/19 12:18 Intake & Output 01/29/19 01/30/19 01/31/19 06:59 06:59 06:59 Intake Total 1750 100 Output Total 1350 Balance 400 100 Weight 61.1 kg General appearance: PRESENT: no acute distress, well-developed, well-nourished Head exam: PRESENT: atraumatic, normocephalic Respiratory exam: PRESENT: clear to auscultation carolyn. ABSENT: rales, rhonchi, wheezes Cardiovascular exam: PRESENT: RRR. ABSENT: diastolic murmur, rubs, systolic murmur GI/Abdominal exam: PRESENT: normal bowel sounds, soft. ABSENT: distended, guarding, mass, organolmegaly, rebound, tenderness Gentrourinary exam: PRESENT: indwelling catheter, other - Suprapubic tenderness. Neurological exam: PRESENT: alert, awake, oriented to person, oriented to place, oriented to time, CN II-XII grossly intact Results Laboratory Results: 01/30/19 05:57 01/30/19 05:57 01/30/19 01/30/19 05:57 05:57 WBC 5.0 RBC 3.20 L Hgb 10.4 L Hct 28.9 L MCV 90 MCH 32.6 MCHC 36.1 H RDW 13.3 Plt Count 116 L Seg Neutrophils % 57.3 Lymphocytes % 28.5 Monocytes % 11.4 Eosinophils % 2.5 Basophils % 0.3 Absolute Neutrophils 2.9 Absolute Lymphocytes 1.4 Absolute Monocytes 0.6 Absolute Eosinophils 0.1 Absolute Basophils 0.0 Sodium 142.7 Potassium 4.4 Chloride 112 H Carbon Dioxide 26 Anion Gap 5 BUN 49 H D Creatinine 2.02 H Est GFR ( Amer) 41 L Est GFR (Non-Af Amer) 34 L Glucose 73 L Calcium 8.4 01/29/19 01/29/19 10:55 10:55 Creatine Kinase 137 Troponin I < 0.012 Impressions: Chest X-Ray 01/29/19 11:09 IMPRESSION: NO ACUTE RADIOGRAPHIC FINDING IN THE CHEST. Renal Ultrasound 01/29/19 12:25 IMPRESSION: Bilateral hydronephrosis, likely related to bladder outlet obstruction. Assessment and Plan - Diagnosis (1) ZARA (acute kidney injury) Is this a current diagnosis for this admission?: Yes Plan: Significant improvement. Creatinine 2.02 down from 9.1 on admission. Post renal due to obstructive uropathy caused by underlying BPH and Stearns catheter malfunction. 01/30/2019. Sodium 142.7, potassium 4.4, bicarb 26, creatinine 2.02 01/29/2019. Stearns replaced. Continue cautious hydration guided by volume status and electrolytes, strict in and out, avoid nephrotoxic meds Monitor urine output, if postobstructive diuresis occurs replace 75% of urine loss with 0.45% NS. 01/29/2019. Renal ultrasound. Bilateral ultrasound positive for bilateral hydronephrosis most likely due to obstructive uropathy. UA positive for leukocyte esterase likely catheter associated UTI. (2) UTI (urinary tract infection) Qualifiers: Urinary tract infection type: catheter-associated UTI Indwelling urinary catheter type: indwelling urethral catheter Encounter type: initial encounter Qualified Code(s): T83.511A - Infection and inflammatory reaction due to indwelling urethral catheter, initial encounter; N39.0 - Urinary tract infection, site not specified Is this a current diagnosis for this admission?: Yes Plan: Catheter associated UTI. Likely due to gram-negative including E. coli. Recurrent E. coli UTI. Day #2 of IV antibiotics. Day #2 of IV levofloxacin. Culture positive for gram-positive cocci in chains. Continue empiric IV antibiotics, follow urine culture. (3) Obstructive uropathy Is this a current diagnosis for this admission?: Yes Plan: Due to underlying BPH and Stearns catheter malfunction. Replace Stearns. Monitor volume status. Patient has outpatient neurology care. Follow-up with outpatient neurology. (4) Dementia Qualifiers: Dementia type: unspecified type Dementia behavioral disturbance: without behavioral disturbance Qualified Code(s): F03.90 - Unspecified dementia without behavioral disturbance Is this a current diagnosis for this admission?: Yes Plan: Due to TBI. Supportive measures. Restart home meds. (5) DM II (diabetes mellitus, type II), controlled Qualifiers: Diabetes mellitus manager intermediate insulin use: without halfway use Diabetes mellitus complication status: with hyperglycemia Qualified Code(s): E11.65 - Type 2 diabetes mellitus with hyperglycemia Is this a current diagnosis for this admission?: Yes Plan: Repeat A1c's have been WNL. 08/10/2017 A1c 4.5. Patient does not seem to have diabetes. We will switch to regular diet, and start on D5 NS as patient has hypoglycemia. (6) History of traumatic brain injury Is this a current diagnosis for this admission?: Yes Plan: Supportive measures. Fall, seizure, aspiration precautions. (7) HTN (hypertension) Qualifiers: Hypertension type: essential hypertension Qualified Code(s): I10 - Essential (primary) hypertension Is this a current diagnosis for this admission?: Yes Plan: Monitor vitals. Restart home meds. Adjust meds as needed. IV hydralazine PRN. (8) Seizure disorder Is this a current diagnosis for this admission?: Yes Plan: Seizure precautions. Restart home meds.
[2019-01-30] MEDS: TAMSULOSIN HCL 0.4 MG CAP.SR.24H PO SCH (17:24)
[2019-01-30] MEDS: DEXTROSE 5%-NORMAL SALINE 1,000 ML IV PRN (21:22)
[2019-01-31] MEDS: HEPARIN SOD (PORCINE) 5,000 UNIT/ML 1 ML SYRINGE SUBCUT SCH (05:03)
[2019-01-31 06:13] LABS: ABSOLUTE EOSINOPHILS # (AUTO) 0.2 10^3/uL (0.0-0.6); ABSOLUTE LYMPHOCYTES (AUTO) 1.7 10^3/uL (0.5-4.7); ABSOLUTE MONOCYTES (AUTO) 0.6 10^3/uL (0.1-1.4); BASOPHILS % (AUTO) 0.3 % (0-2); EOSINOPHILS % (AUTO) 3.5 % (0-6); HEMATOCRIT 29.6 % (37.9-51.0); HEMOGLOBIN 10.6 g/dL (13.5-17.0); MEAN CORPUSCULAR HEMOGLOBIN 32.3 pg (27.0-33.4); MEAN CORPUSCULAR HGB CONC 35.6 g/dL (32.0-36.0); MEAN CORPUSCULAR VOLUME 91 fl (80-97); MONOCYTES % (AUTO) 11.5 % (3-13); PLATELET COUNT 121 10^3/uL (150-450); RED BLOOD COUNT 3.27 10^6/uL (4.35-5.55); SEGMENTED NEUTROPHILS % (AUTO) 54.7 % (42-78); TOTAL CELLS COUNTED % (AUTO) 100 %; WHITE BLOOD COUNT 5.5 10^3/uL (4.0-10.5)
[2019-01-31 06:29] LABS: ALANINE AMINOTRANSFERASE 19 U/L (21-72); ALBUMIN 2.6 g/dL (3.5-5.0); ALKALINE PHOSPHATASE 46 U/L (38-126); ANION GAP 5 (5-19); ASPARTATE AMINO TRANSFERASE 19 U/L (17-59); CALCIUM 8.3 mg/dL (8.4-10.2); CARBON DIOXIDE 29 mmol/L (22-30); CHLORIDE 107 mmol/L (98-107); GLUCOSE 104 mg/dL (75-110); SODIUM 141.1 mmol/L (137-145); TOTAL PROTEIN 5.4 g/dL (6.3-8.2)
[2019-01-31 06:59] LABS: BILIRUBIN,DIRECT 0.2 mg/dL (0.0-0.4); BILIRUBIN,TOTAL 0.4 mg/dL (0.2-1.3)
[2019-01-31 07:12] LABS: BLOOD UREA NITROGEN 17 mg/dL (7-20)
[2019-01-31] MEDS: DEXTROSE 5%-NORMAL SALINE 1,000 ML IV PRN (07:48)
[2019-01-31] MEDS: LEVETIRACETAM 500 MG TABLET PO SCH (09:49)
[2019-01-31] MEDS: CITALOPRAM HYDROBROMIDE 20 MG TABLET PO SCH (09:49)
[2019-01-31] MEDS: FAMOTIDINE 20 MG TABLET PO SCH (09:49)
[2019-01-31] MEDS: DOCUSATE SODIUM 100 MG/10 ML UDC PO SCH (09:49)
[2019-01-31] MEDS: DIVALPROEX SODIUM 500 MG TAB.SR.24H PO SCH (09:49)
[2019-01-31] MEDS: LORAZEPAM 0.5 MG TABLET PO SCH (09:49)
[2019-01-31] MEDS: LEVOFLOXACIN 500 MG/D5W RTU 500 MG/100 ML RTUPB IV SCH (09:49)
--- NOTE | 2019-01-31 09:59 | PDOC TRANSFER SUMMARY ---
General Admission Date/PCP: 01/29/19 16:35 Resuscitation Status: Full Code - Transfer Diagnosis (1) ZARA (acute kidney injury) Is this a current diagnosis for this admission?: Yes (2) UTI (urinary tract infection) Is this a current diagnosis for this admission?: Yes (3) Obstructive uropathy Is this a current diagnosis for this admission?: Yes (4) Dementia Is this a current diagnosis for this admission?: Yes (5) DM II (diabetes mellitus, type II), controlled Is this a current diagnosis for this admission?: Yes (6) History of traumatic brain injury Is this a current diagnosis for this admission?: Yes (7) HTN (hypertension) Is this a current diagnosis for this admission?: Yes (8) Seizure disorder Is this a current diagnosis for this admission?: Yes - Transfer Medications Home Medications: Acetaminophen [Tylenol] 650 mg PO Q8HP PRN 01/29/19 Citalopram Hydrobromide [Celexa 10 mg Tablet] 30 mg PO DAILY 01/29/19 Divalproex Sodium [Depakote] 500 mg PO Q12 01/29/19 Docusate Sodium [Colace 100 mg Capsule] 100 mg PO BID 01/29/19 Guaifenesin [Robitussin Syrup 200 mg/10 ml Ud Cup] 200 mg PO Q4HP PRN 01/29/19 Levetiracetam [Keppra 500 mg Tablet] 1,000 mg PO Q12 01/29/19 Loperamide HCl [Imodium 2 mg Capsule] 2 mg PO Q6HP PRN 01/29/19 Lorazepam [Ativan 0.5 mg Tablet] 0.5 mg PO BID 01/29/19 Magnesium Hydroxide [Milk of Magnesia 30 ml Udcup] 30 ml PO DAILYP PRN 01/29/19 Nystatin [Mycostatin Cream] 1 applic TP BID 01/29/19 Tamsulosin HCl [Flomax 0.4 mg Cap.sr] 0.4 mg PO DAILY 01/29/19 Transfer Medications: Current Medications Acetaminophen (Tylenol 325 Mg Tablet) 325 mg PO Q4HP PRN PRN Reason: FEVER >101 Stop: 02/28/19 16:10 Albuterol/Ipratropium (Duoneb 3 Ml Ampul) 3 ml NEB RTQ6HP PRN PRN Reason: SHORTNESS OF BREATH Stop: 02/28/19 16:10 Citalopram Hydrobromide (Celexa 20 Mg Tablet) 30 mg PO DAILY [facility] Stop: 03/01/19 09:59 Last Admin: 01/30/19 09:33 Dose: 30 mg Documented by: Divalproex Sodium (Depakote Er 500 Mg Tab.Sr) 500 mg PO Q12 MELLISSA Stop: 02/28/19 21:59 Last Admin: 01/30/19 21:14 Dose: 500 mg Documented by: Docusate Sodium (Colace Udc 100 Mg/10 Ml Oral Soln) 100 mg PO DAILY [facility] Stop: 03/01/19 09:59 Last Admin: 01/30/19 09:34 Dose: 100 mg Documented by: Famotidine (Pepcid 20 Mg Tablet) 20 mg PO Q12 MELLISSA Stop: 02/28/19 21:59 Last Admin: 01/30/19 21:15 Dose: 20 mg Documented by: Guaifenesin (Robitussin Syrup 200 Mg/10 Ml Ud Cup) 200 mg PO Q4HP PRN PRN Reason: FOR COUGH Stop: 02/28/19 17:06 Last Admin: 01/30/19 12:58 Dose: 200 mg Documented by: Heparin Sodium (Porcine) (Heparin Inj 5,000 Units/Ml 1 Ml Syringe) 5,000 unit SUBCUT Q8 MELLISSA Stop: 02/28/19 21:59 Last Admin: 01/31/19 05:03 Dose: Not Given Documented by: Levofloxacin/Dextrose (Levaquin Rtu 500mg/D5w 100 Ml Premix) 500 mg in 100 mls @ 100 mls/hr IV DAILY MELLISSA Stop: 02/06/19 09:59 Last Infusion: 01/30/19 10:45 Dose: Infused Documented by: Dextrose/Sodium Chloride (D5ns 1000 Ml Iv Soln) 1,000 mls @ 100 mls/hr IV CONTINUOUS PRN PRN Reason: THIS MED IS NOT "PRN" Stop: 03/01/19 16:29 Last Admin: 01/31/19 07:48 Dose: 100 mls/hr Documented by: Levetiracetam (Keppra 500 Mg Tablet) 1,000 mg PO Q12 MELLISSA Stop: 02/28/19 21:59 Last Admin: 01/30/19 21:14 Dose: 1,000 mg Documented by: Lorazepam (Ativan 0.5 Mg Tablet) 0.5 mg PO BID MELLISSA Stop: 02/05/19 17:59 Last Admin: 01/30/19 17:24 Dose: 0.5 mg Documented by: Ondansetron HCl (Zofran Inj/Pf 4 Mg/2 Ml Sdv) 4 mg IV Q4HP PRN PRN Reason: FOR NAUSEA/VOMITING Stop: 02/28/19 16:10 Oxycodone/Acetaminophen (Percocet 5-325 Mg Tablet) 1 tab PO Q4HP PRN PRN Reason: FOR PAIN SCALE 1-3 Stop: 02/05/19 16:10 Last Admin: 01/30/19 12:57 Dose: 1 tab Documented by: Promethazine HCl (Phenergan Inj 25 Mg/1 Ml Vial) 6.25 mg IV Q4HP PRN PRN Reason: FOR NAUSEA/VOMITING Stop: 02/28/19 16:10 Tamsulosin HCl (Flomax 0.4 Mg Cap.Sr) 0.4 mg PO QPM MELLISSA Stop: 02/28/19 18:44 Last Admin: 01/30/19 17:24 Dose: 0.4 mg Documented by: - Allergies Allergies/Adverse Reactions: clonazepam [From Klonopin] Allergy (Verified 04/21/17 23:26) Hospital Course Hospital Course: SHON PAZ is a 63 year old male past medical history of hypertension, NEMO, seizure disorder, diabetes, BPH, GERD, dementiaTBI, depression, PTSD, resident of [facility] who was brought to ED by EMS due to abnormal labs. As per long-term report patient has been having hematuria for the last several days. He has a chronic indwelling Stearns catheter for his BPH and sees a urologist as outpatient. In ED it was noted that the patient had bloody urine in the Stearns bag, elevated creatinine, a bedside ultrasound showed distended bladder with residuals of more than 1300 mL's and Stearns balloon was noted to not in the bladder. A second Stearns catheter was placed and patient drained dark-colored urine without any clots noted. As per ED physician's conversation with me Dr. Iglesia Quiñones from nephrology was called and he has stated that he can be consulted if needed. On my encounter patient is resting in bed in no apparent distress, alert and cooperative with physical examination, oriented to himself, does not provide any history except that he is not in any pain but he is in discomfort and he has prostate problem. Inspection of Stearns bag shows dark urine without any gross blood or blood clots. He denies any fever, chills, nausea, vomiting, diarrhea, constipation or any urinary symptoms. (1) ZARA (acute kidney injury) Resolved. Creatinine <1 down from 9.1 on admission. Post renal due to obstructive uropathy caused by underlying BPH and Stearns catheter malfunction. 01/30/2019. Sodium 142.7, potassium 4.4, bicarb 26, creatinine 2.02 01/29/2019. Stearns replaced. Started on cautious hydration guided by volume status and electrolytes, strict in and out, avoided nephrotoxic meds Monitored for postobstructive diuresis. Vitals remained WNL. 01/29/2019. Renal ultrasound. Bilateral ultrasound positive for bilateral hydronephrosis most likely due to obstructive uropathy. UA positive for leukocyte esterase likely catheter associated UTI. Follow-up with nephrology as outpatient. (2) UTI (urinary tract infection) Catheter associated UTI. Likely due to gram-negative including E. coli. Recurrent E. coli UTI. Antibiotics day 3/5. Received 3 days of IV antibiotics. Received 3 days of IV levofloxacin. Continue p.o. levofloxacin for another 2 days. To complete a total of 5 days. Culture positive for gram-positive cocci in chains will follow-up for sensitivity. (3) Obstructive uropathy Due to underlying BPH and Stearns catheter malfunction. Placed Stearns on admission. Monitor volume status. Needs to follow-up with urology outpatient. Unfortunately no urology consult available at [facility] at this present. 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 Continued supportive measures and restarted on home meds. (5) DM II (diabetes mellitus, type II), controlled Patient unlikely has diabetes. Review of records at [facility] seems like patient was diagnosed with diabetes at some point however on review of records his A1c's have been WNL. He either has very well controlled diabetes or he may not have diabetes at all. Review of available records show A1c's 4.5-5.4 (6) History of traumatic brain injury Supportive measures. Fall, seizure, aspiration precautions. (7) HTN (hypertension) Monitor vitals. Restart home meds. Adjust meds as needed. IV hydralazine PRN. (8) Seizure disorder Seizure precautions. Restarted on home meds. Physical Exam Vital Signs: Temp Pulse Resp BP Pulse Ox 97.7 F 79 18 128/56 H 100 01/30/19 23:11 01/31/19 07:00 01/30/19 23:11 01/30/19 23:11 01/31/19 02:06 Intake & Output 01/30/19 01/31/19 02/01/19 06:59 06:59 06:59 Intake Total 8750 221 8240 Output Total 1350 925 Balance 400 -385 1000 Weight 61.1 kg 61.2 kg General appearance: PRESENT: no acute distress, well-developed, well-nourished Head exam: PRESENT: atraumatic, normocephalic Respiratory exam: PRESENT: clear to auscultation carolyn. ABSENT: rales, rhonchi, wheezes Cardiovascular exam: PRESENT: RRR. ABSENT: diastolic murmur, rubs, systolic murmur GI/Abdominal exam: PRESENT: normal bowel sounds, soft. ABSENT: distended, guarding, mass, organolmegaly, rebound, tenderness Neurological exam: PRESENT: alert, awake, oriented to person, oriented to place, oriented to time, CN II-XII grossly intact Results Laboratory Results: 01/31/19 05:25 01/31/19 05:25 01/31/19 01/31/19 05:25 05:25 WBC 5.5 RBC 3.27 L Hgb 10.6 L Hct 29.6 L MCV 91 MCH 32.3 MCHC 35.6 RDW 13.0 Plt Count 121 L Seg Neutrophils % 54.7 Lymphocytes % 30.0 Monocytes % 11.5 Eosinophils % 3.5 Basophils % 0.3 Absolute Neutrophils 3.0 Absolute Lymphocytes 1.7 Absolute Monocytes 0.6 Absolute Eosinophils 0.2 Absolute Basophils 0.0 Sodium 141.1 Potassium 4.0 Chloride 107 Carbon Dioxide 29 Anion Gap 5 BUN 17 D Creatinine 0.85 Est GFR ( Amer) > 60 Est GFR (Non-Af Amer) > 60 Glucose 104 Calcium 8.3 L Total Bilirubin 0.4 AST 19 ALT 19 L Alkaline Phosphatase 46 Total Protein 5.4 L Albumin 2.6 L 07/01/19 07/01/19 10:55 10:55 Creatine Kinase 137 Troponin I < 0.012 Impressions: Chest X-Ray 01/29/19 11:09 IMPRESSION: NO ACUTE RADIOGRAPHIC FINDING IN THE CHEST. Renal Ultrasound 01/29/19 12:25 IMPRESSION: Bilateral hydronephrosis, likely related to bladder outlet obstruction.
[2019-01-31 11:07] VITALS: BP 148/81
== END 2019-01-31 13:23 | DRG 699 ==
LOC: ER 10:37 → EH 16:35 → 3S 19:30 → 4S 01-31 02:06
PROVIDERS: ADMIT Internal Medicine; ATTEND Internal Medicine
DX: T83.511A Infection and inflammatory reaction due to indwelling urethral catheter, initial encounter (principal); N17.9 Acute kidney failure, unspecified; N39.0 Urinary tract infection, site not specified; N13.9 Obstructive and reflux uropathy, unspecified; E11.9 Type 2 diabetes mellitus without complications; I10 Essential (primary) hypertension; G40.909 Epilepsy, unspecified, not intractable, without status epilepticus; G47.33 Obstructive sleep apnea (adult) (pediatric); K21.9 Gastro-esophageal reflux disease without esophagitis; F32.9 Major depressive disorder, single episode, unspecified; F43.10 Post-traumatic stress disorder, unspecified; N40.1 Benign prostatic hyperplasia with lower urinary tract symptoms; Y84.6 Urinary catheterization as the cause of abnormal reaction of the patient, or of later complication, without mention of misadventure at the time of the procedure; T83.011A Breakdown (mechanical) of indwelling urethral catheter, initial encounter; S06.9X0A Unspecified intracranial injury without loss of consciousness, initial encounter; F02.80 Dementia in other diseases classified elsewhere, unspecified severity, without behavioral disturbance, psychotic disturbance, mood disturbance, and anxiety; D64.9 Anemia, unspecified; Z79.899 Other long term (current) drug therapy; Z88.8 Allergy status to other drugs, medicaments and biological substances; Z90.49 Acquired absence of other specified parts of digestive tract
CPT/HCPCS: 36415; 51702; 71045; 76770; 80048; 80053; 81001; 82550; 82803; 83605; 84484; 85025; 87040; 87086; 87088; 87186; 93005; 93010; 96360; 99291; C1758; J1956; J3490; J7030; J7042

== ENCOUNTER 2019-09-07 17:16 | Emergency (ER) | payer MEDICARE, MEDICAID ==
--- NOTE | 2019-09-07 18:41 | ER Document Report ---
ED General - General Chief Complaint: Problem with Urinary Catheter Stated Complaint: URINARY PROBLEM Time Seen by Provider: 09/07/19 18:08 Primary Care Provider: PITER LATHAM MD [Primary Care Provider] - Follow up as needed Notes: Patient is a 64-year-old white male who was sent from [facility] for catheter problems. They were concerned his catheter was not functioning properly so they sent him for evaluation. Patient also reports that he has had some blood in and around the catheter as well. They were concerned it did not flush. The patient reports he has an appointment with the urologist upcoming. He denies any is any specific pains but does admit to a discomfort in the suprapubic region. He is unsure the last time the catheter was changed but states "I am certain they have changed it recently." He denies any other abdominal pain, fevers, nausea, vomiting, diarrhea. TRAVEL OUTSIDE OF THE [place] IN LAST 30 DAYS: No - Related Data Allergies/Adverse Reactions: clonazepam [From [place]] Allergy (Verified 04/21/17 23:26) Past Medical History - Social History Smoking Status: Never Smoker Family History: COPD Patient has suicidal ideation: No Patient has homicidal ideation: No - Past Medical History Cardiac Medical History: Reports: Hx Hypertension, Hx Heart Murmur - As an adolescent(functional) Pulmonary Medical History: Reports: Hx Sleep Apnea - Not on C-PAP currently Denies: Hx Asthma, Hx COPD Neurological Medical History: Reports: Hx Seizures - on Keppra and Depakote. Denies: Hx Parkinson's Disease Endocrine Medical History: Reports: Hx Diabetes Mellitus Type 2. Denies: Hx Diabetes Mellitus Type 1, Hx Hyperthyroidism, Hx Hypothyroidism Renal/ Medical History: Reports: Hx Benign Prostatic Hyperplasia. Denies: Hx Peritoneal Dialysis GI Medical History: Reports: Hx Gastroesophageal Reflux Disease - No meds. Denies: Hx Cirrhosis, Hx Hepatitis Musculoskeletal Medical History: Denies Hx Arthritis, Denies Hx Gout, Denies Hx Systemic Lupus Erythematosus Skin Medical History: Denies Hx Eczema, Denies Hx Psoriasis Psychiatric Medical History: Reports: Hx Dementia - TBI, Hx Depression, Hx Post Traumatic Stress Disorder Traumatic Medical History: Reports: Hx Fractures - Hx of fx fingers , Hx Traumatic Brain Injury Infectious Medical History: Denies: Hx Hepatitis Past Surgical History: Reports: Hx Bowel Surgery, Hx Cholecystectomy, Hx Oral Surgery - Had all teeth pulled earlier today, Hx Tonsillectomy, Other - Colectomy for villous adenoma - Immunizations Hx Diphtheria, Pertussis, Tetanus Vaccination: Yes Hx Pneumococcal Vaccination: 10/31/11 Review of Systems - Review of Systems Genitourinary: Hematuria -: Yes All other systems reviewed and negative Physical Exam - Vital signs Vitals: Temp Pulse Resp BP Pulse Ox 98.3 F 67 14 110/66 98 09/07/19 17:30 09/07/19 17:30 09/07/19 17:30 09/07/19 17:30 09/07/19 17:30 - General General appearance: Appears well, Alert In distress: None - Respiratory Respiratory status: No respiratory distress Chest status: Nontender Breath sounds: Normal Chest palpation: Normal - Cardiovascular Rhythm: Regular Heart sounds: Normal auscultation - Abdominal Inspection: Normal Distension: No distension Bowel sounds: Normal Tenderness: Tender - Mild tenderness to suprapubic palpation - Rectal Tenderness: No - Normal external exam - Genitourinary Inspection: Blood at meatus. No: Penile discharge Tenderness: Nontender. No: Lesions, Testicle tender, Epididymis tender Scrotum: Normal Notes: [address], there is seem to be an obstruction at the distal end near the leg bag. The distal end of the cord was removed, the catheter itself flushed very well unsuccessfully without issue or problems. No obstructive blood clots appreciated on flushing. Tube hooked up to a new leg bag which successfully drained. - Neurological Neuro grossly intact: Yes Cognition: Normal Orientation: AAOx4 - Psychological Associated symptoms: Normal affect, Normal mood - Skin Skin Temperature: Warm Skin Moisture: Dry Skin Color: Normal Course - Re-evaluation Re-evalutation: 09/07/19 18:[address], flushed successfully, draining normally. The obstruction was down near the leg bag where it would not drain into the bag. There does appear to be some sediment in the urine so we will send a urinalysis and urine culture. The lower end of the tubing and bag was removed and a newer bag and tubing attachment was placed allowing the urine to successfully drain into the bag without issue. Suspect possible UTI, pending UA. 09/07/19 19:50 Patient urinalysis showing mild evidence of UTI. His urine in the tube does not appear cloudier with sediment however the urine that was pulled into his old bag did appear cloudy, pink from his bloody discharge and possibly infected. He does not have any significant symptoms or evidence of urosepsis. We will treat him with p.o. Bactrim. He will be discharged back to his assisted living facility. He will see his urologist as scheduled and discussed for further outpatient care, maintenance and management. Discussed with him the importance of outpatient follow-up and advised that he return here or any ER immediately with any new, persistent or worsening symptoms. He verbalized understood and agreed. - Vital Signs Vital signs: Temp Pulse Resp BP Pulse Ox 98.3 F 67 14 110/66 98 09/07/19 17:30 09/07/19 17:30 09/07/19 17:30 09/07/19 17:30 09/07/19 17:30 - Laboratory Laboratory results interpreted by me: 09/07/19 19:15 Urine Blood LARGE H Ur Leukocyte Esterase TRACE H Discharge - Discharge Clinical Impression: Indwelling Stearns catheter present Stearns catheter problem Qualifiers: Encounter type: initial encounter Qualified Code(s): T83.9XXA - Unspecified complication of genitourinary prosthetic device, implant and graft, initial encounter UTI (urinary tract infection) Qualifiers: Urinary tract infection type: site unspecified Hematuria presence: with hematuria Qualified Code(s): N39.0 - Urinary tract infection, site not specified; R31.9 - Hematuria, unspecified Condition: Stable Disposition: HOME-ASSISTED LIVING Instructions: Urinary Tract Infection ([facility]) Additional Instructions: Please follow-up with your urologist as scheduled and discussed. Return here or any ER immediately with any new, persistent or worsening symptoms. Facility please note the patient's new prescription medication for Bactrim 1 tablet by mouth twice daily for the next 10 days minus the first dose which he was given here. Also please note his regularly scheduled medications to be given upon return. Prescriptions: Sulfamethoxazole/Trimethoprim [Bactrim Ds Tablet] 1 each PO BID #20 tablet Referrals: PITER LATHAM MD [Primary Care Provider] - Follow up as needed
[2019-09-07 19:44] LABS: APPEARANCE,URINE CLEAR; BILIRUBIN,URINE NEGATIVE (NEGATIVE); COLOR,URINE STRAW; GLUCOSE, URINE NEGATIVE (NEGATIVE); KETONES,URINE NEGATIVE (NEGATIVE); LEUKOCYTE ESTERASE,URINE TRACE (NEGATIVE); NITRITE,URINE NEGATIVE (NEGATIVE); PROTEIN,URINE NEGATIVE (NEGATIVE); URINE SPECIFIC GRAVITY 1.005; UROBILINOGEN,URINE NEGATIVE mg/dL (<2.0)
[2019-09-07] MEDS ORDERED: SULFAMETHOXAZOLE/TRIMETHOPRIM 800-160 MG TABLET PO ONE (19:47)
[2019-09-07 22:03] VITALS: BP 115/75
== END 2019-09-07 22:01 | disposition home health service (06) ==
LOC: ER 17:16
DX: T83.9XXA Unspecified complication of genitourinary prosthetic device, implant and graft, initial encounter (principal); N39.0 Urinary tract infection, site not specified; R31.9 Hematuria, unspecified; Y84.6 Urinary catheterization as the cause of abnormal reaction of the patient, or of later complication, without mention of misadventure at the time of the procedure; I10 Essential (primary) hypertension; E11.9 Type 2 diabetes mellitus without complications; Z90.49 Acquired absence of other specified parts of digestive tract; F03.90 Unspecified dementia, unspecified severity, without behavioral disturbance, psychotic disturbance, mood disturbance, and anxiety
CPT/HCPCS: 87086; 81001; A9270; 99284

== ENCOUNTER 2020-01-17 09:37 | Inpatient (IN) | payer MEDICARE, MEDICAID ==
[2020-01-17 10:45] LABS: HEMOGLOBIN 13.3 g/dL (13.5-17.0); MEAN CORPUSCULAR HEMOGLOBIN 32.1 pg (27.0-33.4); MEAN CORPUSCULAR VOLUME 89 fl (80-97); PLATELET COUNT 112 10^3/uL (150-450); RED BLOOD COUNT 4.14 10^6/uL (4.35-5.55); RED CELL DISTRIBUTION WIDTH 13.9 % (11.5-14.0); WHITE BLOOD COUNT 8.2 10^3/uL (4.0-10.5)
[2020-01-17 10:46] LABS: ALBUMIN 3.8 g/dL (3.5-5.0); ALKALINE PHOSPHATASE 60 U/L (38-126); ANION GAP 9 (5-19); ASPARTATE AMINO TRANSFERASE 97 U/L (17-59); BILIRUBIN,TOTAL 0.6 mg/dL (0.2-1.3); BLOOD UREA NITROGEN 52 mg/dL (7-20); CALCIUM 9.4 mg/dL (8.4-10.2); CARBON DIOXIDE 27 mmol/L (22-30); CHLORIDE 84 mmol/L (98-107); CREATINE KINASE 1068 U/L (55-170); GLUCOSE 129 mg/dL (75-110); POTASSIUM 4.6 mmol/L (3.6-5.0); TOTAL PROTEIN 7.4 g/dL (6.3-8.2)
[2020-01-17 10:50] LABS: APPEARANCE,URINE TURBID; BILIRUBIN,URINE NEGATIVE (NEGATIVE); COLOR,URINE AMBER; GLUCOSE, URINE NEGATIVE (NEGATIVE); KETONES,URINE NEGATIVE (NEGATIVE); LEUKOCYTE ESTERASE,URINE LARGE (NEGATIVE); NITRITE,URINE NEGATIVE (NEGATIVE); PROTEIN,URINE 100 mg/dL (NEGATIVE); URINE SPECIFIC GRAVITY 1.006; UROBILINOGEN,URINE NEGATIVE mg/dL (<2.0)
[2020-01-17 11:08] LABS: ABSOLUTE LYMPHOCYTES# (MANUAL) 0.2 10^3/uL (0.5-4.7); ABSOLUTE MONOCYTES # (MANUAL) 1.4 10^3/uL (0.1-1.4); BASOPHILS % (MANUAL) 0 % (0-2); EOSINOPHILS % (MANUAL) 0 % (0-6); LYMPHOCYTES % (MANUAL) 3 % (13-45); MONOCYTES % (MANUAL) 17 % (3-13); PLATELET COMMENT ADEQUATE; RBC MORPHOLOGY COMMENT NORMO-CYTIC/CHROMIC; SEGMENTED NEUTROPHILS % (MAN) 80 % (42-78); TOTAL CELLS COUNTED 100
--- NOTE | 2020-01-17 11:10 | ER Document Report ---
Entered by SHARYN CARRINGTON SCRIBE 01/17/20 1031 Acting as scribe for:LUAN KAY MD ED General - General Chief Complaint: Abnormal Lab Results Stated Complaint: ABNORMAL LABS Time Seen by Provider: 01/17/20 10:23 Primary Care Provider: PITER LATHAM MD [Primary Care Provider] - Follow up as needed Information source: Patient Notes: This 64 year old male patient presents to the emergency department today from [facility] with complaints of abnormal labs from yesterday. Patient had a urinary pH of 8.5 and sodium of 113. When asked if he had any thing that was bothering him, he said no. When I told him the nurse's notes indicated he was complained of pain in his private parts, he said he did have some rectal problems that have been going on for a long time. TRAVEL OUTSIDE OF THE [place] IN LAST 30 DAYS: No - Related Data Allergies/Adverse Reactions: clonazepam [From Klonopin] Allergy (Verified 04/21/17 23:26) Home Medications: see paper list MAR from facility Past Medical History - General Information source: Patient - Social History Smoking Status: Never Smoker Cigarette use (# per day): No Frequency of alcohol use: None Drug Abuse: None Lives with: Family Family History: Reviewed & Not Pertinent, COPD Patient has homicidal ideation: No - Past Medical History Cardiac Medical History: Reports: Hx Hypertension, Hx Heart Murmur - As an adolescent(functional) Pulmonary Medical History: Reports: Hx Sleep Apnea - Not on C-PAP currently Neurological Medical History: Reports: Hx Seizures - on Keppra and Depakote Endocrine Medical History: Reports: Hx Diabetes Mellitus Type 2 Renal/ Medical History: Reports: Hx Benign Prostatic Hyperplasia GI Medical History: Reports: Hx Gastroesophageal Reflux Disease - No meds Psychiatric Medical History: Reports: Hx Dementia - TBI, Hx Depression, Hx Post Traumatic Stress Disorder Traumatic Medical History: Reports: Hx Fractures - Hx of fx fingers , Hx Traumatic Brain Injury Past Surgical History: Reports: Hx Bowel Surgery, Hx Cholecystectomy, Hx Oral Surgery - Had all teeth pulled earlier today, Hx Tonsillectomy, Other - Colectomy for villous adenoma - Immunizations Hx Diphtheria, Pertussis, Tetanus Vaccination: Yes Hx Pneumococcal Vaccination: 10/31/11 Review of Systems - Review of Systems Constitutional: No symptoms reported EENT: No symptoms reported Cardiovascular: No symptoms reported Respiratory: No symptoms reported Gastrointestinal: See HPI Genitourinary: See HPI, Pain Male Genitourinary: No symptoms reported Musculoskeletal: No symptoms reported Skin: No symptoms reported Hematologic/Lymphatic: No symptoms reported Neurological/Psychological: No symptoms reported -: Yes All other systems reviewed and negative Physical Exam - Vital signs Vitals: Temp Pulse Resp BP Pulse Ox 98.0 F 80 18 141/71 H 98 01/17/20 09:43 01/17/20 09:43 01/17/20 09:43 01/17/20 09:43 01/17/20 09:43 - Notes Notes: Physical Exam: General: Alert. HEENT: Normocephalic. Atraumatic. PERRL. Extraocular movements intact. Oropharynx clear. Neck: Supple. Non-tender. Respiratory: No respiratory distress. Clear and equal breath sounds bilaterally. Cardiovascular: Regular rate and rhythm. Abdominal: Normal Inspection. Non-tender. No distension. Normal Bowel Sounds. Back: No gross abnormalities. Extremities: Moves all four extremities. Upper extremities: Normal inspection. Normal ROM. Lower extremities: Normal inspection. No edema. Normal ROM. Neurological: Pleasantly demented Skin: Warm. Dry. Normal color. Course - Vital Signs Vital signs: Temp Pulse Resp BP Pulse Ox 65.1 F L 80 18 141/71 H 98 01/17/20 10:07 01/17/20 09:43 01/17/20 09:43 01/17/20 09:43 01/17/20 09:43 - Laboratory Result Diagrams: 01/17/20 09:50 01/17/20 09:50 Laboratory results interpreted by me: 01/17/20 01/17/20 01/17/20 09:50 09:50 09:50 RBC 4.14 L Hgb 13.3 L Hct 37.0 L Plt Count 112 L Seg Neuts % (Manual) 80 H Lymphocytes % (Manual) 3 L Monocytes % (Manual) 17 H Abs Lymphs (Manual) 0.2 L Sodium 119.6 L* Chloride 84 L BUN 52 H Creatinine 2.30 H Est GFR ( Amer) 35 L Est GFR (MDRD) Non-Af 29 L Glucose 129 H AST 97 H Creatine Kinase 1068 H Urine Protein 100 H Urine Blood MODERATE H Ur Leukocyte Esterase LARGE H - EKG Interpretation by Id EKG shows normal: Sinus rhythm, Patriot, Intervals, QRS Complexes, ST-T Waves Rate: Normal - 79 Rhythm: NSR Patriot/QRS: Left axis deviation When compared to previous EKG there are: No significant change Discharge - Discharge Clinical Impression: Hyponatremia, Chronic renal insufficiency, stage III (moderate) Rhabdomyolysis Qualifiers: Rhabdomyolysis type: non-traumatic Qualified Code(s): M62.82 - Rhabdomyolysis Urinary tract infection associated with indwelling urethral catheter Qualifiers: Encounter type: initial encounter Qualified Code(s): T83.511A - Infection and inflammatory reaction due to indwelling urethral catheter, initial encounter Condition: Good Disposition: ADMITTED INPATIENT Admitting Provider: Reva (Hospitalist) - Sona Stuart BURNISHING MACHINE OPERATOR will be writing orders. Unit Admitted: IMCU Referrals: PITER LATHAM MD [Primary Care Provider] - Follow up as needed I personally performed the services described in the documentation, reviewed and edited the documentation which was dictated to the scribe in my presence, and it accurately records my words and actions.
[2020-01-17] MEDS ORDERED: NORMAL SALINE 1000 ML 1,000 ML IV ONE (11:47)
[2020-01-17] MEDS ORDERED: ALBUTEROL SULFATE 0.083% NEB 2.5 MG/3 ML AMPUL NEB PRN (11:58)
[2020-01-17] MEDS ORDERED: MAG HYDROX/AL HYDROX/SIMETH SUSP 30 ML UDCUP PO PRN (11:58)
[2020-01-17] MEDS ORDERED: ONDANSETRON HCL INJ/PF 4 MG/2 ML SDV IV PRN (11:58)
[2020-01-17] MEDS ORDERED: MAGNESIUM HYDROXIDE SUSP 30 ML UDCUP PO PRN (11:58)
[2020-01-17] MEDS ORDERED: ACETAMINOPHEN 325 MG TABLET PO PRN (11:58)
--- NOTE | 2020-01-17 12:25 | EKG REPORT ---
SEVERITY:- ABNORMAL ECG - SINUS RHYTHM LEFT ANTERIOR FASCICULAR BLOCK : Confirmed by: Chinedu Kang MD 17-Jan-2020 12:24:37
[2020-01-17] MEDS: CEFTRIAXONE 1 GM/D5W RTU 1 GM/50 ML RTUPB IV SCH (12:27)
[2020-01-17 13:22] LABS: ANION GAP 10 (5-19); BLOOD UREA NITROGEN 54 mg/dL (7-20); CARBON DIOXIDE 25 mmol/L (22-30); CHLORIDE 87 mmol/L (98-107); GLUCOSE 135 mg/dL (75-110); POTASSIUM 4.5 mmol/L (3.6-5.0)
[2020-01-17 13:44] LABS: OSMOLALITY,URINE 190 mOsm/kg (300-900)
[2020-01-17 13:46] LABS: URINE SODIUM 19 mmol/L (30-90)
[2020-01-17] MEDS: HEPARIN SOD (PORCINE) 5,000 UNIT/ML 1 ML VIAL SUBCUT SCH ×2 (15:35→21:15)
[2020-01-17] MEDS ORDERED: NA PHOS,M-B/NA PHOS,DI-BA (ADULT) 133 ML ENEMA PR PRN (17:12)
--- NOTE | 2020-01-17 17:27 | PDOC H&P ---
History of Present Illness Admission Date/PCP: 01/17/20 13:24 PITER LATHAM MD Patient complains of: Abnormal labs History of Present Illness: SHON PAZ is a 64 year old male with a past medical history significant for DM 2, chronic urinary retention (Stearns in place), NEMO, TBI, epilepsy, dementia, depression, PTSD, and conversion disorder who presented to the emergency department from his SNF with report of abnormal labs (sodium 116). Evaluation in the emergency department revealed stable vital signs, unremarkable CBC, sodium 119, CKD 3, CK 1068 and urinalysis suggestive of UTI. He was started on gentle IV fluids and referred to the hospitalist service for admission and management of the above stay complaints findings. Past Medical History Cardiac Medical History: Reports: Hypertension, Heart Murmur Denies: Congestive Heart Failure, Myocardial Infarction Pulmonary Medical History: Reports: Sleep Apnea Denies: Asthma, Chronic Obstructive Pulmonary Disease (COPD) EENT Medical History: Reports: None Neurological Medical History: Reports: Seizures - on Keppra and Depakote Endocrine Medical History: Reports: Diabetes Mellitus Type 2 Denies: Diabetes Mellitus Type 1, Hyperthyroidism, Hypothyroidism Renal/ Medical History: Reports: Chronic Kidney Disease GI Medical History: Reports: Gastroesophageal Reflux Disease Denies: Cirrhosis, Hepatitis Musculoskeltal Medical History: Denies: Arthritis, Gout Skin Medical History: Denies: Eczema, Psoriasis Psychiatric Medical History: Reports: Dementia, Depression, Post Traumatic Stress Disorder Traumatic Medical History: Reports: Traumatic Brain Injury Hematology: Reports: Anemia Denies: Bleeding Tendencies Infectious Medical History: Reports: None Past Surgical History Past Surgical History: Reports: Cholecystectomy, Tonsillectomy, Other - Colectomy for villous adenoma Social History Information Source: [facility] Records, Outside Facility Records Lives with: Correction Smoking Status: Never Smoker Frequency of Alcohol Use: None Hx Recreational Drug Use: No Drugs: None Hx Prescription Drug Abuse: No - Advance Directive Resuscitation Status: Full Code Family History Family History: Reviewed & Not Pertinent, COPD Parental Family History Reviewed: No - mental status Children Family History Reviewed: No Sibling(s) Family History Reviewed.: No Medication/Allergy Home Medications: Acetaminophen [Tylenol] 650 mg PO Q4HP PRN 01/29/19 Citalopram Hydrobromide [Celexa 10 mg Tablet] 30 mg PO QAM 01/29/19 Docusate Sodium [Colace 100 mg Capsule] 100 mg PO BID 01/29/19 Guaifenesin [Robitussin Syrup 200 mg/10 ml Ud Cup] 200 mg PO Q4HP PRN 01/29/19 Levetiracetam [Keppra 500 mg Tablet] 1,000 mg PO Q12 01/29/19 Loperamide HCl [Imodium 2 mg Capsule] 2 mg PO Q6HP PRN 01/29/19 Lorazepam [Ativan 0.5 mg Tablet] 1 mg PO BID 01/29/19 Magnesium Hydroxide [Milk of Magnesia 30 ml Udcup] 30 ml PO DAILYP PRN 01/29/19 Tamsulosin HCl [Flomax 0.4 mg Cap.sr] 0.8 mg PO QHS 01/29/19 Acetaminophen [Tylenol 325 mg Tablet] 650 mg PO Q8HP PRN 01/17/20 Bisacodyl 10 mg AR DAILYP PRN 01/17/20 Cran/Vitc/Mannose/Fos/Bromeln [Uti-Stat Liquid] 30 ml PO QAM 01/17/20 Divalproex Sodium [Depakote ER] 500 mg PO BID 01/17/20 Dutasteride [Avodart Lf 0.5 mg Capsule] 0.5 mg PO DAILY 01/17/20 Na Phos,M-B/Na Phos,Di-Ba [Fleet Enema (Adult) 133 ml] 133 ml AR DAILYP PRN 01/17/20 Omeprazole 20 mg PO QAM 01/17/20 Oxycodone HCl/Acetaminophen [Percocet 5-325 mg Tablet] 1 tab PO Q8HP PRN 01/17/20 Trazodone HCl 25 mg PO QHS 01/17/20 Allergies/Adverse Reactions: clonazepam [From Klonopin] Allergy (Verified 04/21/17 23:26) Review of Systems Constitutional: ABSENT: chills, fever(s), headache(s), weight gain, weight loss Eyes: ABSENT: visual disturbances Ears: ABSENT: hearing changes Cardiovascular: ABSENT: chest pain, dyspnea on exertion, edema, orthropnea, palpitations Respiratory: ABSENT: cough, hemoptysis Gastrointestinal: ABSENT: abdominal pain, constipation, diarrhea, hematemesis, hematochezia, nausea, vomiting Genitourinary: ABSENT: dysuria, hematuria Musculoskeletal: ABSENT: joint swelling Integumentary: ABSENT: rash, wounds Neurological: ABSENT: abnormal gait, abnormal speech, confusion, dizziness, focal weakness, syncope Psychiatric: ABSENT: anxiety, depression, homidical ideation, suicidal ideation Endocrine: ABSENT: cold intolerance, heat intolerance, polydipsia, polyuria Hematologic/Lymphatic: ABSENT: easy bleeding, easy bruising Physical Exam Vital Signs: Temp Pulse Resp BP Pulse Ox 98.0 F 70 15 142/75 H 100 01/17/20 10:07 01/17/20 16:17 01/17/20 15:01 01/17/20 15:00 01/17/20 15:01 Intake & Output 01/16/20 01/17/20 01/18/20 06:59 06:59 06:59 Intake Total 1050 Balance 1050 Weight 65.1 kg General appearance: PRESENT: no acute distress, thin, well-developed, well- nourished Head exam: PRESENT: atraumatic, normocephalic Eye exam: PRESENT: conjunctiva pink, EOMI, PERRLA. ABSENT: scleral icterus Mouth exam: PRESENT: dry mucosa, tongue midline Respiratory exam: PRESENT: clear to auscultation carolyn, symmetrical, unlabored. ABSENT: rales, rhonchi, wheezes Cardiovascular exam: PRESENT: RRR, +S1, +S2. ABSENT: diastolic murmur, rubs, systolic murmur Pulses: PRESENT: normal dorsalis pedis pul Vascular exam: PRESENT: normal capillary refill GI/Abdominal exam: PRESENT: normal bowel sounds, soft. ABSENT: distended, guarding, mass, organolmegaly, rebound, tenderness Rectal exam: PRESENT: deferred Gentrourinary exam: PRESENT: indwelling catheter Extremities exam: PRESENT: full ROM. ABSENT: calf tenderness, clubbing, pedal edema Neurological exam: PRESENT: alert, awake, oriented to person, oriented to place, CN II-XII grossly intact. ABSENT: oriented to time, oriented to situation, motor sensory deficit Psychiatric exam: PRESENT: appropriate affect, normal mood. ABSENT: homicidal ideation, suicidal ideation Skin exam: PRESENT: dry, intact, warm. ABSENT: cyanosis, rash Results Laboratory Results: 01/17/20 09:50 01/17/20 12:44 01/17/20 01/17/20 01/17/20 09:50 09:50 09:50 WBC 8.2 RBC 4.14 L Hgb 13.3 L Hct 37.0 L MCV 89 MCH 32.1 MCHC 36.0 RDW 13.9 Plt Count 112 L Seg Neutrophils % Not Reportable Sodium 119.6 L* Potassium 4.6 Chloride 84 L Carbon Dioxide 27 Anion Gap 9 BUN 52 H Creatinine 2.30 H Est GFR ( Amer) 35 L Glucose 129 H Serum Osmolality Calcium 9.4 Total Bilirubin 0.6 AST 97 H Alkaline Phosphatase 60 Total Protein 7.4 Albumin 3.8 TSH Urine Color MARIE Urine Appearance TURBID Urine pH 7.0 Ur Specific [place] 1.006 Urine Protein 100 H Urine Glucose (UA) NEGATIVE Urine Ketones NEGATIVE Urine Blood MODERATE H Urine Nitrite NEGATIVE Ur Leukocyte Esterase LARGE H Urine WBC (Auto) >182 Urine RBC (Auto) 46 Urine Osmolality 01/17/20 01/17/20 01/17/20 09:50 09:50 09:50 WBC RBC Hgb Hct MCV MCH MCHC RDW Plt Count Seg Neutrophils % Sodium Potassium Chloride Carbon Dioxide Anion Gap BUN Creatinine Est GFR ( Amer) Glucose Serum Osmolality 268 L Calcium Total Bilirubin AST Alkaline Phosphatase Total Protein Albumin TSH 1.57 Urine Color Urine Appearance Urine pH Ur Specific [place] Urine Protein Urine Glucose (UA) Urine Ketones Urine Blood Urine Nitrite Ur Leukocyte Esterase Urine WBC (Auto) Urine RBC (Auto) Urine Osmolality 190 L 01/17/20 12:44 WBC RBC Hgb Hct MCV MCH MCHC RDW Plt Count Seg Neutrophils % Sodium 121.5 L Potassium 4.5 Chloride 87 L Carbon Dioxide 25 Anion Gap 10 BUN 54 H Creatinine 2.29 H Est GFR ( Amer) 35 L Glucose 135 H Serum Osmolality Calcium 9.0 Total Bilirubin AST Alkaline Phosphatase Total Protein Albumin TSH Urine Color Urine Appearance Urine pH Ur Specific [place] Urine Protein Urine Glucose (UA) Urine Ketones Urine Blood Urine Nitrite Ur Leukocyte Esterase Urine WBC (Auto) Urine RBC (Auto) Urine Osmolality 01/17/20 01/17/20 09:50 09:50 Creatine Kinase 1068 H Troponin I < 0.012 Assessment and Plan - Diagnosis (1) Hyponatremia Is this a current diagnosis for this admission?: Yes Plan: Na 119.6 Does not have a history of chronic hyponatremia; unclear over what timeframe this developed. Serum Osmo, serum sodium, urine osmole, urine sodium suggest hypovolemic hyponatremia. This is supported by dry mucous membranes, dry skin, poor skin turgor. He received 1 L normal saline while in the ED. We will continue gentle IV fluids. Serial chemistries every 6 hours to ensure that we do not overcorrect. Seizure precautions. (2) Chronic renal insufficiency, stage III (moderate) Is this a current diagnosis for this admission?: Yes Plan: Baseline creatinine 2.30/BUN 40 Avoid nephrotoxic medications as able; renally dosed when appropriate. Monitor I&O's. Follow-up chemistries. (3) Rhabdomyolysis Qualifiers: Rhabdomyolysis type: non-traumatic Qualified Code(s): M62.82 - Rhabdomyolysis Is this a current diagnosis for this admission?: Yes Plan: CK 1068. Continue IV fluids. Follow-up CK. (4) Urinary tract infection associated with indwelling urethral catheter Qualifiers: Encounter type: initial encounter Qualified Code(s): T83.511A - Infection and inflammatory reaction due to indwelling urethral catheter, initial encounter; N39.0 - Urinary tract infection, site not specified Is this a current diagnosis for this admission?: Yes Plan: Patient with chronic Stearns. Urinalysis suggest UTI. Have asked nursing to exchange the catheter. Empirically placed on IV Rocephin. Blood and urine cultures pending. - Time Time Spent with patient: 35 or more minutes Medications reviewed and adjusted accordingly: Yes Anticipated discharge: SNF - Inpatient Certification Based on my medical assessment, after consideration of the patient's comorbidities, presenting symptoms, or acuity I expect that the services needed warrant INPATIENT care.: Yes I certify that my determination is in accordance with my understanding of Medicare's requirements for reasonable and necessary INPATIENT services [42 CFR 412.3e].: Yes Medical Necessity: Need For IV Fluids, Risk of Complication if Not Cared For in Hospital, Risk of Diagnosis Which Will Require Inpatient Eval/Care/Monitoring
[2020-01-17] MEDS: NORMAL SALINE 1000 ML 1,000 ML IV PRN (17:34)
[2020-01-17] MEDS: OXYCODONE-ACETAMINOPHEN 5-325 MG TABLET PO PRN (18:15)
[2020-01-17] MEDS: DIVALPROEX SODIUM 500 MG TAB.SR.24H PO SCH (18:16)
[2020-01-17 18:31] LABS: ANION GAP 11 (5-19); BLOOD UREA NITROGEN 55 mg/dL (7-20); CALCIUM 9.3 mg/dL (8.4-10.2); CARBON DIOXIDE 25 mmol/L (22-30); CHLORIDE 87 mmol/L (98-107); GLUCOSE 134 mg/dL (75-110); POTASSIUM 4.5 mmol/L (3.6-5.0)
[2020-01-17] MEDS: TRAZODONE HCL 50 MG TABLET PO SCH (21:14)
[2020-01-17] MEDS: TAMSULOSIN HCL 0.4 MG CAP.SR.24H PO SCH (21:14)
[2020-01-17] MEDS: LEVETIRACETAM 500 MG TABLET PO SCH (21:14)
[2020-01-18 00:58] LABS: ANION GAP 9 (5-19); BLOOD UREA NITROGEN 59 mg/dL (7-20); CALCIUM 9.1 mg/dL (8.4-10.2); CARBON DIOXIDE 24 mmol/L (22-30); CHLORIDE 90 mmol/L (98-107); GLUCOSE 118 mg/dL (75-110); POTASSIUM 4.4 mmol/L (3.6-5.0)
[2020-01-18] MEDS: NORMAL SALINE 1000 ML 1,000 ML IV PRN (01:34)
[2020-01-18] MEDS: OXYCODONE-ACETAMINOPHEN 5-325 MG TABLET PO PRN (02:16)
[2020-01-18] MEDS: HEPARIN SOD (PORCINE) 5,000 UNIT/ML 1 ML VIAL SUBCUT SCH ×3 (06:32→21:05)
[2020-01-18] MEDS: PANTOPRAZOLE SODIUM 20 MG TABLET.DR PO SCH (06:32)
[2020-01-18 06:49] LABS: HEMATOCRIT 34.4 % (37.9-51.0); MEAN CORPUSCULAR HEMOGLOBIN 31.4 pg (27.0-33.4); MEAN CORPUSCULAR HGB CONC 34.9 g/dL (32.0-36.0); MEAN CORPUSCULAR VOLUME 90 fl (80-97); PLATELET COUNT 100 10^3/uL (150-450); RED BLOOD COUNT 3.83 10^6/uL (4.35-5.55); RED CELL DISTRIBUTION WIDTH 13.4 % (11.5-14.0); WHITE BLOOD COUNT 7.5 10^3/uL (4.0-10.5)
[2020-01-18 07:20] LABS: ANION GAP 11 (5-19); BLOOD UREA NITROGEN 63 mg/dL (7-20); CALCIUM 8.7 mg/dL (8.4-10.2); CARBON DIOXIDE 21 mmol/L (22-30); CHLORIDE 94 mmol/L (98-107); CREATINE KINASE 409 U/L (55-170); GLUCOSE 117 mg/dL (75-110); POTASSIUM 4.6 mmol/L (3.6-5.0)
[2020-01-18] MEDS ORDERED: NORMAL SALINE 1000 ML 1,000 ML IV PRN (07:54)
[2020-01-18] MEDS: DOCUSATE SODIUM 100 MG CAPSULE PO SCH (09:22)
[2020-01-18] MEDS: LEVETIRACETAM 500 MG TABLET PO SCH ×2 (09:22→21:08)
[2020-01-18] MEDS: LORAZEPAM 0.5 MG TABLET PO PRN ×2 (09:22→21:08)
[2020-01-18] MEDS: DIVALPROEX SODIUM 500 MG TAB.SR.24H PO SCH ×2 (09:22→17:46)
[2020-01-18] MEDS: DUTASTERIDE 0.5 MG CAPSULE PO SCH (09:23)
[2020-01-18] MEDS: CEFTRIAXONE 1 GM/D5W RTU 1 GM/50 ML RTUPB IV SCH (09:23)
--- NOTE | 2020-01-18 10:33 | PDOC PROGRESS REPORT ---
Subjective Progress Note for:: 01/18/20 Subjective:: SHON PAZ is a 64 year old male with a past medical history significant for DM 2, chronic urinary retention (Stearns in place), NEMO, TBI, epilepsy, dementia, depression, PTSD, and conversion disorder who was admitted 01/17/2020 with hyponatremia. Patient was seen on morning rounds. He was found resting bed, comfortably, on room air. He is alert and oriented to self and place. He is conversational and socially appropriate. He asks for assistance with his dietary needs; kosher diet. He is frustrated that the dietary staff are asking him what kosher means. He also reports penile pain; appears that his Stearns catheter was taped in such a manner that it was pulling; also clearly still needs to be changed. ROS is somewhat limited secondary to mental status and tangential thoughts/conversation. He denies chest pain, dyspnea, cough, abdominal pain, nausea and vomiting. He tells me he like to go home but has no other questions or concerns at this ti me. No concerns per nursing. Reason For Visit: HYPONATREMIA,RHABDOMYOLYSIS,DEHYDRATION,UTI Physical Exam Vital Signs: Temp Pulse Resp BP Pulse Ox 98.7 F 77 16 147/71 H 97 01/18/20 03:43 01/18/20 09:34 01/18/20 09:34 01/18/20 03:43 01/18/20 09:34 Intake & Output 01/17/20 01/18/20 01/19/20 06:59 06:59 06:59 Intake Total 2287 Output Total 1150 Balance 1137 Weight 66.3 kg General appearance: PRESENT: no acute distress, cooperative, disheveled, thin, well-developed, well-nourished Head exam: PRESENT: atraumatic, normocephalic Eye exam: PRESENT: conjunctiva pink, EOMI, PERRLA. ABSENT: scleral icterus Ear exam: PRESENT: normal external ear exam Mouth exam: PRESENT: moist, tongue midline Teeth exam: PRESENT: poor dentation Respiratory exam: PRESENT: clear to auscultation carolyn, symmetrical, unlabored. ABSENT: rales, rhonchi, wheezes Cardiovascular exam: PRESENT: RRR. ABSENT: diastolic murmur, rubs, systolic murmur Pulses: PRESENT: normal dorsalis pedis pul Vascular exam: PRESENT: normal capillary refill GI/Abdominal exam: PRESENT: normal bowel sounds, soft. ABSENT: distended, guarding, mass, organolmegaly, rebound, tenderness Rectal exam: PRESENT: deferred Gentrourinary exam: PRESENT: indwelling catheter Extremities exam: PRESENT: full ROM. ABSENT: calf tenderness, clubbing, pedal edema Neurological exam: PRESENT: alert, awake, oriented to person, oriented to place, CN II-XII grossly intact, other - Pleasantly confused. ABSENT: oriented to time, oriented to situation, motor sensory deficit Psychiatric exam: PRESENT: appropriate affect, normal mood. ABSENT: homicidal ideation, suicidal ideation Skin exam: PRESENT: dry, intact, warm. ABSENT: cyanosis, rash Results Laboratory Results: 01/18/20 05:58 01/18/20 05:58 01/17/20 01/17/20 01/17/20 09:50 09:50 09:50 WBC 8.2 RBC 4.14 L Hgb 13.3 L Hct 37.0 L MCV 89 MCH 32.1 MCHC 36.0 RDW 13.9 Plt Count 112 L Seg Neutrophils % Not Reportable Sodium 119.6 L* Potassium 4.6 Chloride 84 L Carbon Dioxide 27 Anion Gap 9 BUN 52 H Creatinine 2.30 H Est GFR ( Amer) 35 L Glucose 129 H Serum Osmolality Calcium 9.4 Total Bilirubin 0.6 AST 97 H Alkaline Phosphatase 60 Total Protein 7.4 Albumin 3.8 TSH Urine Color MARIE Urine Appearance TURBID Urine pH 7.0 Ur Specific [place] 1.006 Urine Protein 100 H Urine Glucose (UA) NEGATIVE Urine Ketones NEGATIVE Urine Blood MODERATE H Urine Nitrite NEGATIVE Ur Leukocyte Esterase LARGE H Urine WBC (Auto) >182 Urine RBC (Auto) 46 Urine Osmolality 01/17/20 01/17/20 01/17/20 09:50 09:50 09:50 WBC RBC Hgb Hct MCV MCH MCHC RDW Plt Count Seg Neutrophils % Sodium Potassium Chloride Carbon Dioxide Anion Gap BUN Creatinine Est GFR ( Amer) Glucose Serum Osmolality 268 L Calcium Total Bilirubin AST Alkaline Phosphatase Total Protein Albumin TSH 1.57 Urine Color Urine Appearance Urine pH Ur Specific [place] Urine Protein Urine Glucose (UA) Urine Ketones Urine Blood Urine Nitrite Ur Leukocyte Esterase Urine WBC (Auto) Urine RBC (Auto) Urine Osmolality 190 L 01/17/20 01/17/20 01/18/20 12:44 17:59 00:26 WBC RBC Hgb Hct MCV MCH MCHC RDW Plt Count Seg Neutrophils % Sodium 121.5 L 123.3 L 123.2 L Potassium 4.5 4.5 4.4 Chloride 87 L 87 L 90 L Carbon Dioxide 25 25 24 Anion Gap 10 11 9 BUN 54 H 55 H 59 H Creatinine 2.29 H 2.51 H 2.83 H Est GFR ( Amer) 35 L 32 L 27 L Glucose 135 H 134 H 118 H Serum Osmolality Calcium 9.0 9.3 9.1 Total Bilirubin AST Alkaline Phosphatase Total Protein Albumin TSH Urine Color Urine Appearance Urine pH Ur Specific [place] Urine Protein Urine Glucose (UA) Urine Ketones Urine Blood Urine Nitrite Ur Leukocyte Esterase Urine WBC (Auto) Urine RBC (Auto) Urine Osmolality 01/18/20 01/18/20 05:58 05:58 WBC 7.5 RBC 3.83 L Hgb 12.0 L Hct 34.4 L MCV 90 MCH 31.4 MCHC 34.9 RDW 13.4 Plt Count 100 L Seg Neutrophils % Sodium 125.6 L Potassium 4.6 Chloride 94 L Carbon Dioxide 21 L Anion Gap 11 BUN 63 H Creatinine 3.19 H Est GFR ( Amer) 24 L Glucose 117 H Serum Osmolality Calcium 8.7 Total Bilirubin AST Alkaline Phosphatase Total Protein Albumin TSH Urine Color Urine Appearance Urine pH Ur Specific [place] Urine Protein Urine Glucose (UA) Urine Ketones Urine Blood Urine Nitrite Ur Leukocyte Esterase Urine WBC (Auto) Urine RBC (Auto) Urine Osmolality 01/17/20 01/17/20 01/18/20 09:50 09:50 05:58 Creatine Kinase 1068 H 409 H Troponin I < 0.012 Assessment and Plan - Diagnosis (1) Hyponatremia Is this a current diagnosis for this admission?: Yes Plan: Tending up; Na 119.6-> 125.6 Does not have a history of chronic hyponatremia; unclear over what timeframe this developed. Serum Osmo, serum sodium, urine osmole, urine sodium suggest hypovolemic hyponatremia. This is supported by dry mucous membranes, dry skin, poor skin turgor. He received 1 L normal saline while in the ED. We will continue gentle IV fluids; decreased rate today. Liberalize dietary sodium. Fluid restrict to 2L Serial chemistries to ensure that we do not over correct. Seizure precautions. (2) Urinary tract infection associated with indwelling urethral catheter Qualifiers: Encounter type: initial encounter Qualified Code(s): T83.511A - Infection and inflammatory reaction due to indwelling urethral catheter, initial encounter; N39.0 - Urinary tract infection, site not specified Is this a current diagnosis for this admission?: Yes Plan: Blood cultures have NGTD Uring culture w/ two Gram negative organisms Urinalysis suggest UTI. Patient with chronic Stearns. Nursing is again asked to exchange the catheter (not completed yesterday) Empirically placed on IV Rocephin; Day #2 (3) Chronic renal insufficiency, stage III (moderate) Is this a current diagnosis for this admission?: Yes Plan: Slight worsening today; monitor closely Baseline creatinine 2.30/BUN 40 Avoid nephrotoxic medications as able; renally dosed when appropriate. Monitor I&O's. Follow-up chemistries. (4) Rhabdomyolysis Qualifiers: Rhabdomyolysis type: non-traumatic Qualified Code(s): M62.82 - Rhabd omyolysis Is this a current diagnosis for this admission?: Yes Plan: Improved; CK 1068-> 400 Continue IV fluids. - Time Time Spent with patient: 25-34 minutes Medications reviewed and adjusted accordingly: Yes Anticipated discharge: SNF Within: within 48 hours
[2020-01-18 16:21] LABS: ANION GAP 6 (5-19); BLOOD UREA NITROGEN 63 mg/dL (7-20); CARBON DIOXIDE 25 mmol/L (22-30); CHLORIDE 99 mmol/L (98-107); GLUCOSE 112 mg/dL (75-110); POTASSIUM 4.5 mmol/L (3.6-5.0)
[2020-01-18] MEDS: TRAZODONE HCL 50 MG TABLET PO SCH (21:09)
[2020-01-18] MEDS: TAMSULOSIN HCL 0.4 MG CAP.SR.24H PO SCH (21:09)
[2020-01-18] MEDS: HALOPERIDOL LACTATE INJ 5 MG/1 ML VIAL IV PRN (21:13)
[2020-01-19] MEDS: HEPARIN SOD (PORCINE) 5,000 UNIT/ML 1 ML VIAL SUBCUT SCH ×3 (05:28→21:27)
[2020-01-19] MEDS: PANTOPRAZOLE SODIUM 20 MG TABLET.DR PO SCH (06:00)
[2020-01-19] MEDS: HALOPERIDOL LACTATE INJ 5 MG/1 ML VIAL IV PRN ×2 (06:55→22:31)
[2020-01-19 07:09] LABS: ANION GAP 6 (5-19); BLOOD UREA NITROGEN 49 mg/dL (7-20); CALCIUM 9.3 mg/dL (8.4-10.2); CARBON DIOXIDE 26 mmol/L (22-30); CHLORIDE 106 mmol/L (98-107); GLUCOSE 85 mg/dL (75-110); POTASSIUM 4.3 mmol/L (3.6-5.0)
[2020-01-19 09:55] LABS: APPEARANCE,URINE CLOUDY; BILIRUBIN,URINE NEGATIVE (NEGATIVE); COLOR,URINE YELLOW; GLUCOSE, URINE NEGATIVE (NEGATIVE); KETONES,URINE NEGATIVE (NEGATIVE); LEUKOCYTE ESTERASE,URINE LARGE (NEGATIVE); NITRITE,URINE NEGATIVE (NEGATIVE); PROTEIN,URINE NEGATIVE (NEGATIVE); URINE SPECIFIC GRAVITY 1.006; UROBILINOGEN,URINE NEGATIVE mg/dL (<2.0)
[2020-01-19] MEDS: LEVETIRACETAM 500 MG TABLET PO SCH ×2 (09:56→21:19)
[2020-01-19] MEDS: CEFTRIAXONE 1 GM/D5W RTU 1 GM/50 ML RTUPB IV SCH (09:56)
[2020-01-19] MEDS: DUTASTERIDE 0.5 MG CAPSULE PO SCH (09:57)
[2020-01-19] MEDS: DIVALPROEX SODIUM 500 MG TAB.SR.24H PO SCH ×2 (09:57→18:10)
[2020-01-19] MEDS: DOCUSATE SODIUM 100 MG CAPSULE PO SCH (09:57)
--- NOTE | 2020-01-19 10:16 | PDOC PROGRESS REPORT ---
Subjective Progress Note for:: 01/19/20 Subjective:: SHON PAZ is a 64 year old male with a past medical history significant for DM 2, chronic urinary retention (Stearns in place), NEMO, TBI, epilepsy, dementia, depression, PTSD, and conversion disorder who was admitted 01/17/2020 with hyponatremia. Patient was seen on morning rounds. He was found resting bed, comfortably, on room air. He is alert and oriented to self and place. He has no complaints at this time (other then again discussing his dietary restrictions; perhaps fixated r/t TBI/dementia). ROS is somewhat limited secondary to mental status and tangential thoughts/conversation. He denies chest pain, dyspnea, cough, abdominal pain, nausea and vomiting. Per nursing; intermittently agitated. Unfortunately [facility] not [facility] him back over the weekend. Reason For Visit: HYPONATREMIA,RHABDOMYOLYSIS,DEHYDRATION,UTI Physical Exam Vital Signs: Temp Pulse Resp BP Pulse Ox 98.4 F 85 17 133/64 H 100 01/19/20 07:45 01/19/20 07:45 01/19/20 07:45 01/19/20 07:45 01/19/20 07:45 Intake & Output 01/18/20 01/19/20 01/20/20 06:59 06:59 06:59 Intake Total 2287 998 Output Total 1150 3900 Balance 1137 -2902 Weight 66.3 kg 63.6 kg General appearance: PRESENT: no acute distress, thin, well-developed, well- nourished Head exam: PRESENT: atraumatic, normocephalic Eye exam: PRESENT: conjunctiva pink, EOMI, PERRLA. ABSENT: scleral icterus Mouth exam: PRESENT: moist, tongue midline Teeth exam: PRESENT: poor dentation Respiratory exam: PRESENT: clear to auscultation carolyn, symmetrical, unlabored. ABSENT: rales, rhonchi, wheezes Cardiovascular exam: PRESENT: RRR. ABSENT: diastolic murmur, rubs, systolic murmur Vascular exam: PRESENT: normal capillary refill GI/Abdominal exam: PRESENT: normal bowel sounds, soft. ABSENT: distended, guarding, mass, organolmegaly, rebound, tenderness Rectal exam: PRESENT: deferred Gentrourinary exam: PRESENT: indwelling catheter Extremities exam: PRESENT: full ROM. ABSENT: calf tenderness, clubbing, pedal edema Neurological exam: PRESENT: alert, awake, oriented to person, oriented to place, CN II-XII grossly intact. ABSENT: motor sensory deficit Psychiatric exam: PRESENT: appropriate affect, normal mood. ABSENT: homicidal ideation, suicidal ideation Skin exam: PRESENT: dry, intact, warm. ABSENT: cyanosis, rash Results Laboratory Results: 01/18/20 05:58 01/19/20 06:03 01/18/20 01/19/20 01/19/20 15:13 06:03 09:30 Sodium 129.5 L 138.0 Potassium 4.5 4.3 Chloride 99 106 Carbon Dioxide 25 26 Anion Gap 6 6 BUN 63 H 49 H Creatinine 2.70 H 1.40 H Est GFR ( Amer) 29 L > 60 Glucose 112 H 85 Calcium 9.0 9.3 Urine Color YELLOW Urine Appearance CLOUDY Urine pH 6.0 Ur Specific [place] 1.006 Urine Protein NEGATIVE Urine Glucose (UA) NEGATIVE Urine Ketones NEGATIVE Urine Blood LARGE H Urine Nitrite NEGATIVE Ur Leukocyte Esterase LARGE H Urine WBC (Auto) 162 Urine RBC (Auto) 4 01/17/20 09:50 Stearns Catheter Urine Culture - Final Proteus Mirabilis Escherichia Coli Esbl 01/17/20 01/17/20 01/18/20 09:50 09:50 05:58 Creatine Kinase 1068 H 409 H Troponin I < 0.012 Assessment and Plan - Diagnosis (1) Hyponatremia Is this a current diagnosis for this admission?: Yes Plan: Resolved. Na 119.6-> 125.6-> 138 Does not have a history of chronic hyponatremia; unclear over what timeframe this developed. Serum Osmo, serum sodium, urine osmole, urine sodium suggest hypovolemic hyponatremia. This is supported by dry mucous membranes, dry skin, poor skin turgor. Have discontinued IVF. Liberalize dietary sodium. Fluid restrict to 2L (2) Urinary tract infection associated with indwelling urethral catheter Qualifiers: Encounter type: initial encounter Qualified Code(s): T83.511A - Infection and inflammatory reaction due to indwelling urethral catheter, initial en counter; N39.0 - Urinary tract infection, site not specified Is this a current diagnosis for this admission?: Yes Plan: Blood cultures have NGTD Uring culture shows Proteus mirabilis and ESBL E. coli Urinalysis suggest UTI. Repeat urinalysis essentially unchanged. Patient with chronic Stearns. Nursing has exchanged the catheter Empirically placed on IV Rocephin; did cover Proteus, but not E. coli. Received 3 doses. As the urinalysis is essentially unchanged, patient remains afebrile, normal leukocytes, and asymptomatic; it is likely that he is ESBL E. coli is colonization and does not represent active infection. Will discontinue ant ibiotics and continue to monitor. (3) Chronic renal insufficiency, stage III (moderate) Is this a current diagnosis for this admission?: Yes Plan: Improved; currently 1.40/49 Baseline creatinine 2.30/BUN 40 Avoid nephrotoxic medications as able; renally dosed when appropriate. Ensure adequate p.o. intake. Monitor I&O's. Follow-up chemistries. (4) Rhabdomyolysis Qualifiers: Rhabdomyolysis type: non-traumatic Qualified Code(s): M62.82 - Rhabdomyolysis Is this a current diagnosis for this admission?: Yes Plan: Resolved. CK 1068-> 400 (5) Dementia Qualifiers: Dementia type: unspecified type Dementia behavioral disturbance: without behavioral disturbance Qualified Code(s): F03.90 - Unspecified dementia without behavioral disturbance Is this a current diagnosis for this admission?: Yes Plan: Continue home medication regiment. Supportive care. PRN Haldol for acute agitation. (6) Seizure disorder Is this a current diagnosis for this admission?: Yes Plan: Continue home dose Keppra. - Time Time Spent with patient: 25-34 minutes Medications reviewed and adjusted accordingly: Yes Anticipated discharge: SNF Within: when bed available - [facility] will not accept back over the weekend.
[2020-01-19] MEDS: OXYCODONE-ACETAMINOPHEN 5-325 MG TABLET PO PRN (14:09)
[2020-01-19] MEDS: TAMSULOSIN HCL 0.4 MG CAP.SR.24H PO SCH (21:17)
[2020-01-19] MEDS: TRAZODONE HCL 50 MG TABLET PO SCH (21:18)
[2020-01-19] MEDS: LORAZEPAM 0.5 MG TABLET PO PRN (21:19)
[2020-01-20] MEDS: HEPARIN SOD (PORCINE) 5,000 UNIT/ML 1 ML VIAL SUBCUT SCH ×3 (06:02→21:10)
[2020-01-20] MEDS: LORAZEPAM 0.5 MG TABLET PO PRN (06:10)
[2020-01-20] MEDS: PANTOPRAZOLE SODIUM 20 MG TABLET.DR PO SCH (06:10)
[2020-01-20] MEDS: DUTASTERIDE 0.5 MG CAPSULE PO SCH (10:21)
[2020-01-20] MEDS: LEVETIRACETAM 500 MG TABLET PO SCH ×2 (10:21→21:10)
[2020-01-20] MEDS: DIVALPROEX SODIUM 500 MG TAB.SR.24H PO SCH ×2 (10:21→17:22)
[2020-01-20] MEDS: DOCUSATE SODIUM 100 MG CAPSULE PO SCH (10:21)
[2020-01-20] MEDS: ACETAMINOPHEN 325 MG TABLET PO SCH ×3 (13:41→23:06)
--- NOTE | 2020-01-20 13:55 | PDOC PROGRESS REPORT ---
Subjective Progress Note for:: 01/20/20 Subjective:: SHON PAZ is a 64 year old male with a past medical history significant for DM 2, chronic urinary retention (Stearns in place), NEMO, TBI, epilepsy, dementia, depression, PTSD, and conversion disorder who was admitted 01/17/2020 with hyponatremia. Patient was seen on morning rounds. He was found resting bed, comfortably, on room air. He is alert and oriented to self and place. He has numerous, non- medical, trivial complaints. ROS is somewhat limited secondary to mental status and tangential thoughts/conversation. He denies chest pain, dyspnea, cough, abdominal pain, nausea and vomiting. He does appear comfortable and is not in any acute distress. Per nursing; intermittently agitated and using call frederick >80x/hr. Unfortunately [facility] not accept him back over the weekend. Reason For Visit: HYPONATREMIA,RHABDOMYOLYSIS,DEHYDRATION,UTI Physical Exam Vital Signs: Temp Pulse Resp BP Pulse Ox 97.6 F 67 17 132/58 H 98 01/20/20 07:56 01/20/20 07:56 01/20/20 07:56 01/20/20 07:56 01/20/20 07:56 Intake & Output 01/19/20 01/20/20 01/21/20 06:59 06:59 06:59 Intake Total 998 2301 Output Total 3900 4150 Balance -2902 -1849 Weight 63.6 kg 61.1 kg General appearance: PRESENT: no acute distress, thin, well-developed, other - chronically ill appearing Head exam: PRESENT: atraumatic, normocephalic Eye exam: PRESENT: conjunctiva pink, EOMI, PERRLA. ABSENT: scleral icterus Mouth exam: PRESENT: moist, tongue midline Teeth exam: PRESENT: poor dentation Respiratory exam: PRESENT: clear to auscultation carolyn, symmetrical, unlabored. ABSENT: rales, rhonchi, wheezes Cardiovascular exam: PRESENT: RRR. ABSENT: diastolic murmur, rubs, systolic murmur Pulses: PRESENT: normal dorsalis pedis pul Gentrourinary exam: PRESENT: indwelling catheter Extremities exam: PRESENT: full ROM. ABSENT: calf tenderness, clubbing, pedal edema Neurological exam: PRESENT: alert, awake, oriented to person, oriented to place, CN II-XII grossly intact, other - waxing/waning confusion. Orientated to self and place at baseline.. ABSENT: oriented to time, oriented to situation, motor sensory deficit Psychiatric exam: PRESENT: agitated, anxious. ABSENT: homicidal ideation, suicidal ideation Skin exam: PRESENT: dry, intact, warm. ABSENT: cyanosis, rash Results Laboratory Results: 01/18/20 05:58 01/19/20 06:03 01/17/20 09:50 Stearns Catheter Urine Culture - Final Proteus Mirabilis Escherichia Coli Esbl 01/17/20 01/17/20 01/18/20 09:50 09:50 05:58 Creatine Kinase 1068 H 409 H Troponin I < 0.012 Assessment and Plan - Diagnosis (1) Hyponatremia Is this a current diagnosis for this admission?: Yes Plan: Resolved. Na 119.6-> 125.6-> 138 Does not have a history of chronic hyponatremia; unclear over what timeframe this developed. Serum Osmo, serum sodium, urine osmole, urine sodium suggest hypovolemic hyponatremia. This is supported by dry mucous membranes, dry skin, poor skin turgor. Have discontinued IVF. Liberalize dietary sodium. Fluid restrict to 2L (2) Urinary tract infection associated with indwelling urethral catheter Qualifiers: Encounter type: initial encounter Qualified Code(s): T83.511A - Infection and inflammatory reaction due to indwelling urethral catheter, initial encounter; N39.0 - Urinary tract infection, site not specified Is this a current diagnosis for this admission?: Yes Plan: Blood cultures have NGTD Uring culture shows Proteus mirabilis and ESBL E. coli Urinalysis suggest UTI. Repeat urinalysis essentially unchanged. Patient with chronic Stearns. Nursing has exchanged the catheter Empirically placed on IV Rocephin; did cover Proteus, but not E. coli. Received 3 doses. As the urinalysis is essentially unchanged, patient remains afebrile, normal leukocytes, and asymptomatic; it is likely that he is ESBL E. coli is colo nization and does not represent active infection. Will discontinue antibiotics and continue to monitor. (3) Chronic renal insufficiency, stage III (moderate) Is this a current diagnosis for this admission?: Yes Plan: Improved; currently 1.40/49 Baseline creatinine 2.30/BUN 40 Avoid nephrotoxic medications as able; renally dosed when appropriate. Ensure adequate p.o. intake. Monitor I&O's. (4) Rhabdomyolysis Qualifiers: Rhabdomyolysis type: non-traumatic Qualified Code(s): M62.82 - Rhabdomyolysis Is this a current diagnosis for this admission?: Yes Plan: Resolved. CK 1068-> 400 (5) Dementia Qualifiers: Dementia type: unspecified type Dementia behavioral disturbance: without behavioral disturbance Qualified Code(s): F03.90 - Unspecified dementia without behavioral disturbance Is this a current diagnosis for this admission?: Yes Plan: Continue home medication regiment. Supportive care. Scheduled Tylenol for discomfort Sitter if available. PRN Haldol for acute agitation. (6) Seizure disorder Is this a current diagnosis for this admission?: Yes Plan: Continue home dose Keppra. - Time Time Spent with patient: 25-34 minutes Medications reviewed and adjusted accordingly: Yes Anticipated discharge: Home Within: when bed available
[2020-01-20] MEDS: OXYCODONE-ACETAMINOPHEN 5-325 MG TABLET PO PRN (17:22)
[2020-01-20] MEDS: TAMSULOSIN HCL 0.4 MG CAP.SR.24H PO SCH (21:11)
[2020-01-20] MEDS: TRAZODONE HCL 50 MG TABLET PO SCH (21:11)
[2020-01-21] MEDS: OXYCODONE-ACETAMINOPHEN 5-325 MG TABLET PO PRN (04:45)
[2020-01-21] MEDS: PANTOPRAZOLE SODIUM 20 MG TABLET.DR PO SCH (05:31)
[2020-01-21] MEDS: ACETAMINOPHEN 325 MG TABLET PO SCH ×2 (05:49→12:30)
[2020-01-21] MEDS: HEPARIN SOD (PORCINE) 5,000 UNIT/ML 1 ML VIAL SUBCUT SCH ×2 (05:49→13:46)
[2020-01-21 08:48] VITALS: BP 117/54
--- NOTE | 2020-01-21 09:26 | PDOC TRANSFER SUMMARY ---
Impression - Admit/DC Date/PCP Admission Date/Primary Care Provider: 01/17/20 13:24 PITER LATHAM MD Discharge Date: 01/21/20 - Discharge Diagnosis (1) Hyponatremia Is this a current diagnosis for this admission?: Yes (2) Urinary tract infection associated with indwelling urethral catheter Is this a current diagnosis for this admission?: Yes (3) Chronic renal insufficiency, stage III (moderate) Is this a current diagnosis for this admission?: Yes (4) Rhabdomyolysis Is this a current diagnosis for this admission?: Yes (5) Dementia Is this a current diagnosis for this admission?: Yes (6) Seizure disorder Is this a current diagnosis for this admission?: Yes - Additional Information Resuscitation Status: Full Code Discharge Diet: Cardiac Discharge Activity: Activity As Tolerated, Balance Activity w/Rest Referrals: [facility] [Outside] PITER LATHAM MD [Primary Care Provider] - Follow up as needed Home Medications: Acetaminophen [Tylenol] 650 mg PO Q4HP PRN 01/29/19 Citalopram Hydrobromide [Celexa 10 mg Tablet] 30 mg PO QAM 01/29/19 Docusate Sodium [Colace 100 mg Capsule] 100 mg PO BID 01/29/19 Guaifenesin [Robitussin Syrup 200 mg/10 ml Ud Cup] 200 mg PO Q4HP PRN 01/29/19 Levetiracetam [Keppra 500 mg Tablet] 1,000 mg PO Q12 01/29/19 Loperamide HCl [Imodium 2 mg Capsule] 2 mg PO Q6HP PRN 01/29/19 Lorazepam [Ativan 0.5 mg Tablet] 1 mg PO BID 01/29/19 Magnesium Hydroxide [Milk of Magnesia 30 ml Udcup] 30 ml PO DAILYP PRN 01/29/19 Tamsulosin HCl [Flomax 0.4 mg Cap.sr] 0.8 mg PO QHS 01/29/19 Acetaminophen [Tylenol 325 mg Tablet] 650 mg PO Q8HP PRN 01/17/20 Bisacodyl 10 mg OK DAILYP PRN 01/17/20 Cran/Vitc/Mannose/Fos/Bromeln [Uti-Stat Liquid] 30 ml PO QAM 01/17/20 Divalproex Sodium [Depakote ER] 500 mg PO BID 01/17/20 Dutasteride [Avodart Lf 0.5 mg Capsule] 0.5 mg PO DAILY 01/17/20 Na Phos,M-B/Na Phos,Di-Ba [Fleet Enema (Adult) 133 ml] 133 ml OK DAILYP PRN 01/17/20 Omeprazole 20 mg PO QAM 01/17/20 Oxycodone HCl/Acetaminophen [Percocet 5-325 mg Tablet] 1 tab PO Q8HP PRN 01/17/20 Trazodone HCl 25 mg PO QHS 01/17/20 Acetaminophen [Tylenol 325 mg Tablet] 650 mg PO Q4HP PRN tablet 01/19/20 Acetaminophen [Tylenol 325 mg Tablet] 650 mg PO Q6 tablet 01/21/20 History of Present Illiness History of Present Illness: SHON PAZ is a 64 year old male with a past medical history significant for DM 2, chronic urinary retention (Stearns in place), NEMO, TBI, epilepsy, dementia, depression, PTSD, and conversion disorder who presented to the emergency department from his SNF with report of abnormal labs (sodium 116). Evaluation in the emergency department revealed stable vital signs, unremarkable CBC, sodium 119, CKD 3, CK 1068 and urinalysis suggestive of UTI. He was started on gentle IV fluids and referred to the hospitalist service for admission and management of the above stay complaints findings. Hospital Course Hospital Course: (1) Hyponatremia Resolved. Na 119.6-> 125.6-> 138 Does not have a history of chronic hyponatremia; unclear over what timeframe this developed. Serum Osmo, serum sodium, urine osmole, urine sodium suggest hypovolemic hyponatremia. This is supported by dry mucous membranes, dry skin, poor skin turgor. Patient was admitted to [facility] on continuous cardiac telemetry. He was provided generous IV fluids. Liberalize dietary sodium. Water restrict to 2L (2) Urinary tract infection associated with indwelling urethral catheter Blood cultures have NGTD Uring culture shows Proteus mirabilis and ESBL E. coli Urinalysis suggest UTI. Repeat urinalysis essentially unchanged. Patient with chronic Stearns. Nursing has exchanged the catheter Empirically placed on IV Rocephin; did cover Proteus, but not E. coli. Received 3 doses. As the urinalysis is essentially unchanged and patient remains afebrile, normal leukocytes, and asymptomatic; it is likely that he is ESBL E. coli is colonization and does not represent active infection. Antibiotics were therefore discontinued. Recommend changing the patient's catheter every 30 days and as needed (upon observation of pyuria). (3) Chronic renal insufficiency, stage III (moderate) Improved; currently 1.40/49 Baseline creatinine 2.30/BUN 40 Avoid nephrotoxic medications as able; renally dosed when appropriate. Ensure adequate p.o. intake. (4) Rhabdomyolysis Resolved; secondary to dehydration. CK 1068-> 400 (5) Dementia Continue home medication regiment. Supportive care. Scheduled Tylenol for discomfort (6) Seizure disorder Continue home dose Keppra. Physical Exam Vital Signs: Temp Pulse Resp BP Pulse Ox 98.4 F 64 16 117/54 L 99 01/21/20 07:39 01/21/20 07:39 01/21/20 07:39 01/21/20 07:39 01/21/20 07:39 Intake & Output 01/20/20 01/21/20 01/22/20 06:59 06:59 06:59 Intake Total 2301 1918 Output Total 4150 1575 Balance -1849 343 Weight 61.1 kg 62.3 kg General appearance: PRESENT: no acute distress, cooperative, thin, well- developed, other - Chronically ill-appearing Head exam: PRESENT: atraumatic, normocephalic Eye exam: PRESENT: conjunctiva pink, EOMI, PERRLA. ABSENT: scleral icterus Mouth exam: PRESENT: moist, tongue midline Respiratory exam: PRESENT: clear to auscultation carolyn, symmetrical, unlabored. ABSENT: rales, rhonchi, wheezes Cardiovascular exam: PRESENT: RRR, +S1, +S2. ABSENT: diastolic murmur, rubs, systolic murmur Pulses: PRESENT: normal dorsalis pedis pul Vascular exam: PRESENT: normal capillary refill GI/Abdominal exam: PRESENT: normal bowel sounds, soft. ABSENT: distended, guarding, mass, organolmegaly, rebound, tenderness Rectal exam: PRESENT: deferred Gentrourinary exam: PRESENT: indwelling catheter - with clear yellow urine Extremities exam: PRESENT: full ROM. ABSENT: calf tenderness, clubbing, pedal edema Neurological exam: PRESENT: alert, awake, oriented to person, oriented to place, CN II-XII grossly intact, other - waxing/waning confusion. ABSENT: oriented to time, oriented to situation, motor sensory deficit Psychiatric exam: PRESENT: appropriate affect, normal mood. ABSENT: homicidal ideation, suicidal ideation Skin exam: PRESENT: dry, intact, warm. ABSENT: cyanosis, rash Results Laboratory Results: WBC 7.5 10^3/uL (4.0-10.5) 01/18/20 05:58 RBC 3.83 10^6/uL (4.35-5.55) L 01/18/20 05:58 Hgb 12.0 g/dL (13.5-17.0) L 01/18/20 05:58 Hct 34.4 % (37.9-51.0) L 01/18/20 05:58 MCV 90 fl (80-97) 01/18/20 05:58 MCH 31.4 pg (27.0-33.4) 01/18/20 05:58 MCHC 34.9 g/dL (32.0-36.0) 01/18/20 05:58 RDW 13.4 % (11.5-14.0) 01/18/20 05:58 Plt Count 100 10^3/uL (150-450) L 01/18/20 05:58 Lymph % (Auto) Not Reportable 01/17/20 09:50 Wheeler % (Auto) Not Reportable 01/17/20 09:50 Eos % (Auto) Not Reportable 01/17/20 09:50 Baso % (Auto) Not Reportable 01/17/20 09:50 Absolute Neuts (auto) Not Reportable 01/17/20 09:50 Absolute Lymphs (auto) Not Reportable 01/17/20 09:50 Absolute Monos (auto) Not Reportable 01/17/20 09:50 Absolute Eos (auto) Not Reportable 01/17/20 09:50 Absolute Basos (auto) Not Reportable 01/17/20 09:50 Total Counted 100 01/17/20 09:50 Seg Neutrophils % Not Reportable 01/17/20 09:50 Seg Neuts % (Manual) 80 % (42-78) H 01/17/20 09:50 Lymphocytes % (Manual) 3 % (13-45) L 01/17/20 09:50 Monocytes % (Manual) 17 % (3-13) H 01/17/20 09:50 Eosinophils % (Manual) 0 % (0-6) 01/17/20 09:50 Basophils % (Manual) 0 % (0-2) 01/17/20 09:50 Abs Neuts (Manual) 6.6 10^3/uL (1.7-8.2) 01/17/20 09:50 Abs Lymphs (Manual) 0.2 10^3/uL (0.5-4.7) L 01/17/20 09:50 Abs Monocytes (Manual) 1.4 10^3/uL (0.1-1.4) 01/17/20 09:50 Absolute Eos (Manual) 0.0 10^3/uL (0.0-0.6) 01/17/20 09:50 Abs Basophils (Manual) 0.0 10^3/uL (0.0-0.2) 01/17/20 09:50 Platelet Comment ADEQUATE 01/17/20 09:50 RBC Morph Comment NORMO-CYTIC/CHROMIC 01/17/20 09:50 Sodium 138.0 mmol/L (137-145) 01/19/20 06:03 Potassium 4.3 mmol/L (3.6-5.0) 01/19/20 06:03 Chloride 106 mmol/L (98-107) 01/19/20 06:03 Carbon Dioxide 26 mmol/L (22-30) 01/19/20 06:03 Anion Gap 6 (5-19) 01/19/20 06:03 BUN 49 mg/dL (7-20) H 01/19/20 06:03 Creatinine 1.40 mg/dL (0.52-1.25) H 01/19/20 06:03 Est GFR ( Amer) > 60 (>60) 01/19/20 06:03 Est GFR (MDRD) Non-Af 51 (>60) L 01/19/20 06:03 Glucose 85 mg/dL (75-110) 01/19/20 06:03 POC Glucose 164 mg/dL (70-110) H 01/20/20 16:14 Serum Osmolality 268 mOsm/kg (275-301) L 01/17/20 09:50 Calcium 9.3 mg/dL (8.4-10.2) 01/19/20 06:03 Total Bilirubin 0.6 mg/dL (0.2-1.3) 01/17/20 09:50 Direct Bilirubin 0.0 mg/dL (0.0-0.4) 01/17/20 09:50 Neonat Total Bilirubin Not Reportable 01/17/20 09:50 Neonat Direct Bilirubin Not Reportable 01/17/20 09:50 Neonat Indirect Bili Not Reportable 01/17/20 09:50 AST 97 U/L (17-59) H 01/17/20 09:50 ALT 45 U/L (<50) 01/17/20 09:50 Alkaline Phosphatase 60 U/L (38-126) 01/17/20 09:50 Creatine Kinase 409 U/L (55-170) H 01/18/20 05:58 Troponin I < 0.012 ng/mL 01/17/20 09:50 Total Protein 7.4 g/dL (6.3-8.2) 01/17/20 09:50 Albumin 3.8 g/dL (3.5-5.0) 01/17/20 09:50 TSH 1.57 uIU/mL (0.47-4.68) 01/17/20 09:50 Urine Color YELLOW 01/19/20 09:30 Urine Appearance CLOUDY 01/19/20 09:30 Urine pH 6.0 (5.0-9.0) 01/19/20 09:30 Ur Specific [place] 1.006 01/19/20 09:30 Urine Protein NEGATIVE mg/dL (NEGATIVE) 01/19/20 09:30 Urine Glucose (UA) NEGATIVE mg/dL (NEGATIVE) 01/19/20 09:30 Urine Ketones NEGATIVE mg/dL (NEGATIVE) 01/19/20 09:30 Urine Blood LARGE (NEGATIVE) H 01/19/20 09:30 Urine Nitrite NEGATIVE (NEGATIVE) 01/19/20 09:30 Urine Bilirubin NEGATIVE (NEGATIVE) 01/19/20 09:30 Urine Urobilinogen NEGATIVE mg/dL (<2.0) 01/19/20 09:30 Ur Leukocyte Esterase LARGE (NEGATIVE) H 01/19/20 09:30 Urine WBC (Auto) 162 /HPF 01/19/20 09:30 Urine RBC (Auto) 4 /HPF 01/19/20 09:30 Urine Bacteria (Auto) 3+ /HPF 01/19/20 09:30 Urine WBC Clumps FEW /HPF 01/19/20 09:30 Squamous Epi Cells Auto <1 /HPF 01/19/20 09:30 U Non-Squamous Epis Auto 6 /HPF 01/17/20 09:50 Urine Mucus (Auto) RARE /LPF 01/19/20 09:30 Urine Osmolality 190 mOsm/kg (300-900) L 01/17/20 09:50 Urine Sodium 19 mmol/L (30-90) L 01/17/20 09:50 Urine Ascorbic Acid NEGATIVE (NEGATIVE) 01/19/20 09:30 COVID-19 Source NASOPHARYNGEAL 01/18/20 22:20 COVID-19 (MONTEZ) NOT DETECTED 01/18/20 22:20 01/17/20 09:50 Troponin I < 0.012 Plan Plan of Treatment: The patient is discharged to [facility] where he is a long-term resident. Recommend follow-up with primary care provider within 1 week. Continue taking medications as prescribed. Recommend changing Stearns catheter every 30 days. Recommend liberalized dietary sodium. Water restriction to 2 L daily (would not restrict other salt containing liquids). Follow-up chemistry in 5 to 7 days. Return to the emergency department as needed for concerning symptoms. Time Spent: Greater than 30 Minutes Stroke Is this a Stroke Patient?: No Acute Heart Failure - Is this a Heart Failure Patient?: No
[2020-01-21] MEDS: DOCUSATE SODIUM 100 MG CAPSULE PO SCH (09:39)
[2020-01-21] MEDS: DUTASTERIDE 0.5 MG CAPSULE PO SCH (09:39)
[2020-01-21] MEDS: LEVETIRACETAM 500 MG TABLET PO SCH (09:39)
[2020-01-21] MEDS: DIVALPROEX SODIUM 500 MG TAB.SR.24H PO SCH (09:39)
[2020-01-21] MEDS: LORAZEPAM 0.5 MG TABLET PO PRN (09:40)
== END 2020-01-21 16:21 | DRG 699 ==
LOC: ER 09:37 → EH 13:24 → 3S 16:10 → 4N 01-20 23:03
PROVIDERS: ADMIT Internal Medicine; ATTEND Registered Nurse
DX: T83.511A Infection and inflammatory reaction due to indwelling urethral catheter, initial encounter (principal); E87.1 Hypo-osmolality and hyponatremia; M62.82 Rhabdomyolysis; N39.0 Urinary tract infection, site not specified; B96.20 Unspecified Escherichia coli [E. coli] as the cause of diseases classified elsewhere; B96.4 Proteus (mirabilis) (morganii) as the cause of diseases classified elsewhere; N18.3 Chronic kidney disease, stage 3 (moderate); E11.9 Type 2 diabetes mellitus without complications; G40.909 Epilepsy, unspecified, not intractable, without status epilepticus; F32.9 Major depressive disorder, single episode, unspecified; F43.10 Post-traumatic stress disorder, unspecified; F03.90 Unspecified dementia, unspecified severity, without behavioral disturbance, psychotic disturbance, mood disturbance, and anxiety; Y84.6 Urinary catheterization as the cause of abnormal reaction of the patient, or of later complication, without mention of misadventure at the time of the procedure; Y92.018 Other place in single-family (private) house as the place of occurrence of the external cause; Z87.820 Personal history of traumatic brain injury; Z03.818 Encounter for observation for suspected exposure to other biological agents ruled out
CPT/HCPCS: 36415; 80048; 80053; 81001; 82550; 82962; 83930; 83935; 84300; 84443; 84484; 85025; 85027; 87040; 87086; 87088; 87186; 87635; 93005; 93010; 96360; 99284; C9803; J0696; J1630; J1644; J3490; J7030

== ENCOUNTER 2020-05-21 13:34 | Inpatient (IN) | payer MEDICARE, MEDICAID ==
[2020-05-21] MEDS ORDERED: NORMAL SALINE 1000 ML 1,000 ML IV ONE ×2 (13:48→14:14)
[2020-05-21 14:05] LABS: HEMATOCRIT 42.6 % (37.9-51.0); HEMOGLOBIN 14.3 g/dL (13.5-17.0); MEAN CORPUSCULAR HEMOGLOBIN 32.6 pg (27.0-33.4); MEAN CORPUSCULAR HGB CONC 33.5 g/dL (32.0-36.0); MEAN CORPUSCULAR VOLUME 97 fl (80-97); RED BLOOD COUNT 4.38 10^6/uL (4.35-5.55); RED CELL DISTRIBUTION WIDTH 14.4 % (11.5-14.0); WHITE BLOOD COUNT 17.6 10^3/uL (4.0-10.5)
[2020-05-21 14:20] LABS: APPEARANCE,URINE SLIGHTLY-CLOUDY; BILIRUBIN,URINE NEGATIVE (NEGATIVE); COLOR,URINE AMBER; GLUCOSE, URINE NEGATIVE (NEGATIVE); KETONES,URINE TRACE mg/dL (NEGATIVE); PROTEIN,URINE 100 mg/dL (NEGATIVE); URINE SPECIFIC GRAVITY 1.024
[2020-05-21 14:21] LABS: ABSOLUTE LYMPHOCYTES# (MANUAL) 2.5 10^3/uL (0.5-4.7); ABSOLUTE MONOCYTES # (MANUAL) 1.2 10^3/uL (0.1-1.4); BAND NEUTROPHILS % (MANUAL) 4 % (3-5); BASOPHILS % (MANUAL) 0 % (0-2); EOSINOPHILS % (MANUAL) 0 % (0-6); LYMPHOCYTES % (MANUAL) 14 % (13-45); MONOCYTES % (MANUAL) 7 % (3-13); PLATELET COMMENT ADEQUATE; RBC MORPHOLOGY COMMENT NORMO-CYTIC/CHROMIC; SEGMENTED NEUTROPHILS % (MAN) 75 % (42-78); TOTAL CELLS COUNTED 100
[2020-05-21 14:22] LABS: PLATELET CLUMPS PRESENT; PLATELET COUNT 356 10^3/uL (150-450)
[2020-05-21 14:23] LABS: ALBUMIN 3.4 g/dL (3.5-5.0); ALKALINE PHOSPHATASE 94 U/L (38-126); ANION GAP 13 (5-19); ASPARTATE AMINO TRANSFERASE 30 U/L (17-59); BILIRUBIN,DIRECT 0.6 mg/dL (0.0-0.4); BILIRUBIN,TOTAL 1.1 mg/dL (0.2-1.3); BLOOD UREA NITROGEN 54 mg/dL (7-20); CALCIUM 10.3 mg/dL (8.4-10.2); CARBON DIOXIDE 29 mmol/L (22-30); CHLORIDE 110 mmol/L (98-107); GLUCOSE 174 mg/dL (75-110); POTASSIUM 4.1 mmol/L (3.6-5.0); TOTAL PROTEIN 7.1 g/dL (6.3-8.2)
[2020-05-21] MEDS ORDERED: 1/2 NORMAL SALINE 1,000 ML IV ONE (14:29)
[2020-05-21 14:32] LABS: CREATINE KINASE < 20 U/L (55-170)
--- NOTE | 2020-05-21 14:38 | RADIOLOGY REPORT (SQ) ---
EXAM DESCRIPTION: CHEST SINGLE VIEW IMAGES COMPLETED DATE/TIME: 05/21/2020 2:13 pm REASON FOR STUDY: resp failure COMPARISON: 01/29/2019. EXAM PARAMETERS: NUMBER OF VIEWS: One view. TECHNIQUE: Single frontal radiographic view of the chest acquired. RADIATION DOSE: NA LIMITATIONS: None. FINDINGS: LUNGS AND PLEURA: Faint infiltrates in the lower lobes. No pleural effusion. No pneumoth orax. MEDIASTINUM AND HILAR STRUCTURES: No masses. Contour normal. HEART AND VASCULAR STRUCTURES: Heart normal in size. Normal vasculature. BONES: No acute findings. HARDWARE: Endotracheal tube, tip located 3 cm proximal to the liu. OTHER: No other significant finding. IMPRESSION: SATISFACTORY POSITION OF THE ENDOTRACHEAL TUBE. LOWER LOBE INFILTRATES CONCERNING FOR P NEUMONIA, POSSIBLY VIRAL. TECHNICAL DOCUMENTATION: JOB ID: [id number] 2010 [email or web address]- All Rights Reserved Reading location - IP/workstation name: [email or web address]
[2020-05-21] MEDS ORDERED: PIPERACILLIN/TAZOBACTAM 3.375 GM VIAL IV ONE (14:46)
[2020-05-21] MEDS ORDERED: VANCOMYCIN HCL INJ 1000 MG VIAL IV ONE (14:46)
[2020-05-21] MEDS ORDERED: LEVOFLOXACIN 750 MG/D5W RTU 750 MG/150 ML RTUPB IV ONE (14:47)
[2020-05-21 14:53] LABS: ARTERIAL BLOOD BASE EXCESS -1.3 mmol/L; ARTERIAL BLOOD H2CO3 4.14 mmol/L (1.05-1.35); ARTERIAL BLOOD HCO3 34.3 mmol/L (20-24); ARTERIAL BLOOD O2 SATURATION 96.3 % (94-98); ARTERIAL BLOOD TOTAL CO2 38.5 mmol/L (23-27)
[2020-05-21 14:54] LABS: ARTERIAL BLOOD FIO2 100; ARTERIAL BLOOD PH 7.01 (7.35-7.45)
[2020-05-21 14:55] LABS: ARTERIAL BLOOD PCO2 137.7 mmHg (35-45)
--- NOTE | 2020-05-21 14:55 | ER Document Report ---
ED General - General Chief Complaint: Unresponsive Stated Complaint: UNRESPONSIVE Time Seen by Provider: 05/21/20 13:42 Information source: Emergency Med Personnel Cannot obtain history due to: Intubated, Altered mental status TRAVEL OUTSIDE OF THE [place] IN LAST 30 DAYS: No - HPI Notes: Patient was brought in by EMS due to difficulty breathing at his facility, [facility]. Patient was intubated for respiratory distress, hypotension and altered mental status on the way to the hospital by EMS. He is a full code per his paperwork. Patient is therefore unable to give any information. Per EMS, blood sugar was 200 and lactic was greater than 2. Per EMS, his facility thought that he may have aspirated. Per old records, patient has a history of chronic kidney disease, dementia, sleep apnea and diabetes. - Related Data Allergies/Adverse Reactions: clonazepam [From Klonopin] Allergy (Verified 05/21/20 14:10) Past Medical History - Social History Smoking Status: Unknown if Ever Smoked Family History: Reviewed & Not Pertinent, COPD Patient has homicidal ideation: No - Past Medical History Cardiac Medical History: Reports: Hx Hypertension, Hx Heart Murmur Denies: Hx Congestive Heart Failure, Hx Heart Attack Pulmonary Medical History: Reports: Hx Sleep Apnea Denies: Hx Asthma, Hx COPD Neurological Medical History: Reports: Hx Seizures - on Keppra and Depakote. Denies: Hx Parkinson's Disease Endocrine Medical History: Reports: Hx Diabetes Mellitus Type 2. Denies: Hx Diabetes Mellitus Type 1, Hx Hyperthyroidism, Hx Hypothyroidism Renal/ Medical History: Reports: Hx Benign Prostatic Hyperplasia. Denies: Hx Peritoneal Dialysis GI Medical History: Reports: Hx Gastroesophageal Reflux Disease. Denies: Hx Cirrhosis, Hx Hepatitis Musculoskeletal Medical History: Denies Hx Arthritis, Denies Hx Gout, Denies Hx Systemic Lupus Erythematosus Skin Medical History: Denies Hx Eczema, Denies Hx Psoriasis Psychiatric Medical History: Reports: Hx Dementia, Hx Depression, Hx Post Traumatic Stress Disorder Traumatic Medical History: Reports: Hx Fractures - Hx of fx fingers , Hx Traumatic Brain Injury Infectious Medical History: Denies: Hx Hepatitis Past Surgical History: Reports: Hx Bowel Surgery, Hx Cholecystectomy, Hx Oral Surgery - Had all teeth pulled earlier today, Hx Tonsillectomy, Other - Colectomy for villous adenoma - Immunizations Hx Diphtheria, Pertussis, Tetanus Vaccination: Yes Hx Pneumococcal Vaccination: 10/31/11 Review of Systems - Review of Systems -: Yes ROS unobtainable due to patient's medical condition Physical Exam - Vital signs Vitals: Resp Pulse Ox 30 H 93 05/21/20 13:37 05/21/20 13:37 Interpretation: Hypotensive, Tachycardic, Hypoxic, Febrile - General General appearance: Unresponsive In distress: Severe - HEENT Head: Normocephalic, Atraumatic Cornea: Normal Mouth/Lips: Other - ETT Mucous membranes: Dry - Respiratory Respiratory status: Respiratory distress - intubated Breath sounds: Decreased air movement - b/l - Cardiovascular Rhythm: Regular, Tachycardia - Abdominal Inspection: Normal Distension: Distended - Back Back: Normal - Extremities General upper extremity: Other - cool General lower extremity: Normal color, Other - cool,pale - Neurological [place] Coma Scale Eye Opening: None - intubated, sedated [place] Coma Scale Verbal: None [place] Coma Scale Motor: None [place] Coma Scale Total: 3 - Skin Skin Temperature: Cool Skin Color: Pale Course - Re-evaluation Re-evalutation: 05/21/20 Patient was discussed with the director of residential services, Dr. Mcpherson who will admit the patient for respiratory failure, on ventilator, likely due to pneumonia. I have called the patient's next of kin and updated them. They will unfortunately not be able to see him because he will be getting swab for Covid as a rule out although his labs, presentation, and chest x-ray are more consistent with a bacterial pneumonia. Patient has had blood cultures and urine culture sent. He has been fluid resuscitated and started on Levophed by EMS prior to arrival. He is in improved condition at the time of admission. Heart rate and blood pressure are improving although he is still critical. - Vital Signs Vital signs: Temp Pulse Resp BP Pulse Ox 99.9 F 121 H 28 H 106/77 100 05/21/20 16:33 05/21/20 17:53 05/21/20 18:36 05/21/20 18:36 05/21/20 18:35 - Laboratory Result Diagrams: 05/21/20 13:52 05/21/20 13:52 Laboratory results interpreted by me: 05/21/20 05/21/20 05/21/20 13:52 13:52 13:52 WBC 17.6 H RDW 14.4 H Abs Neuts (Manual) 13.9 H Carbonic Acid ABG pH ABG pCO2 ABG pO2 ABG HCO3 ABG Total CO2 Sodium 151.9 H Chloride 110 H BUN 54 H Glucose 174 H Lactic Acid 3.1 H Calcium 10.3 H Direct Bilirubin 0.6 H Creatine Kinase < 20 L Albumin 3.4 L Urine Protein Urine Ketones Urine Blood Urine Urobilinogen Leukocyte Esterase Rfl Urine Ascorbic Acid 05/21/20 05/21/20 14:05 14:30 WBC RDW Abs Neuts (Manual) Carbonic Acid 4.14 H ABG pH 7.01 L* ABG pCO2 137.7 H* ABG pO2 128.0 H ABG HCO3 34.3 H ABG Total CO2 38.5 H Sodium Chloride BUN Glucose Lactic Acid Calcium Direct Bilirubin Creatine Kinase Albumin Urine Protein 100 H Urine Ketones TRACE H Urine Blood SMALL H Urine Urobilinogen 4.0 H Leukocyte Esterase Rfl SMALL H Urine Ascorbic Acid 40 H - Diagnostic Test Radiology reviewed: Image reviewed - tachy at 137 (13:05), Reports reviewed - EKG Interpretation by Me Rate: Tachycardia Critical Care Note - Critical Care Note Total time excluding time spent on procedures (mins): 45 - Evaluation and management of sepsis, reevaluation's, review of old records, review of diagnostic data, coordination of admission, counseling of family Discharge - Discharge Clinical Impression: Septic shock, Acute respiratory failure with hypoxia and hypercapnia Sepsis Qualifiers: Sepsis type: sepsis due to unspecified organism Sepsis acute organ dysfunction status: with acute organ dysfunction Severe sepsis acute organ dysfunction type: acute respiratory failure Acute respiratory failure type: with hypoxia Severe sepsis shock status: with septic shock Qualified Code(s): A41.9 - Sepsis, unspecified organism Pneumonia Qualifiers: Pneumonia type: due to unspecified organism Laterality: bilateral Lung location: lower lobe of lung Qualified Code(s): J18.9 - Pneumonia, unspecified organism Condition: Critical Disposition: ADMITTED INPATIENT Admitting Provider: Ky (Dehydrogenation Operator Head) Unit Admitted: ICU ED Sepsis - Sepsis Documentation Sepsis Patient: Yes - Vital Signs Interpretation: Hypotensive, Tachycardic, Hypoxic - Cardiovascular Peripheral Pulse Strength: Weak Capillary refill: > 3 seconds Rhythm: Tachycardia Heart Sounds: Normal auscultation - Respiratory Breath sounds: Decreased air movement - bases Respiratory Status: Intubated - Skin Skin Color: Pale - Bedside Cardiovascular Ultrasound Was a bedside Cardiovascular Ultrasound performed?: No - Fluid Challenge Was the patient given a fluid challenge?: Yes
[2020-05-21] MEDS ORDERED: ALBUTEROL SULFATE 0.083% NEB 2.5 MG/3 ML AMPUL NEB ONE (15:03)
[2020-05-21] MEDS ORDERED: DEXTROSE 50%-WATER 25 GM/50 ML DISP.SYRIN IV PRN ×2 (15:06)
[2020-05-21] MEDS ORDERED: DEXTROSE 40% GEL 15 GM TUBE PO PRN ×2 (15:06)
[2020-05-21] MEDS ORDERED: GLUCAGON,HUMAN RECOMB 1 MG INJ IM PRN (15:06)
[2020-05-21] MEDS ORDERED: DOPAMINE HCL/DEXTROSE 5%-WATER 800 MG/250 ML RTUINJ IV PRN (15:06)
[2020-05-21] MEDS ORDERED: VANCOMYCIN HCL 0 MG in DEXTROSE 5%-WATER 250 ML IV NR (15:15)
[2020-05-21] MEDS: DEXTROSE 5%-WATER 250 ML with NOREPINEPHRINE BITARTRATE 4 MG IV PRN ×6 (15:41→23:23)
[2020-05-21] MEDS: ALBUTEROL SULFATE 0.083% NEB 2.5 MG/3 ML AMPUL NEB PRN ×2 (16:21→16:49)
--- NOTE | 2020-05-21 16:35 | EKG REPORT ---
SEVERITY:- ABNORMAL ECG - SINUS TACHYCARDIA LEFT ANTERIOR FASCICULAR BLOCK : Confirmed by: Sean Parekh MD 21-May-2020 16:34:43
[2020-05-21 17:11] LABS: VENOUS BLOOD BASE EXCESS -6.4 mmol/L; VENOUS BLOOD HCO3 26.4 mmol/L (20-32)
[2020-05-21 17:13] LABS: ARTERIAL BLOOD BASE EXCESS -5.3 mmol/L; ARTERIAL BLOOD H2CO3 2.26 mmol/L (1.05-1.35); ARTERIAL BLOOD HCO3 25.1 mmol/L (20-24); ARTERIAL BLOOD TOTAL CO2 27.4 mmol/L (23-27)
[2020-05-21 17:15] LABS: ARTERIAL BLOOD FIO2 100%
[2020-05-21 17:16] LABS: ARTERIAL BLOOD PCO2 75.1 mmHg (35-45); ARTERIAL BLOOD PH 7.14 (7.35-7.45)
[2020-05-21 17:16] LABS: VENOUS BLOOD PCO2 93.7 mmHg (35-63); VENOUS BLOOD PH 7.07 (7.30-7.42)
[2020-05-21 17:27] LABS: INTERNATIONAL RATION (INR) 1.22; PROTHROMBIN TIME 15.6 SEC (11.4-15.4)
[2020-05-21] MEDS ORDERED: EPINEPHRINE INJ 1 MG/10 ML DISP.SYRIN ONE (17:48)
[2020-05-21] MEDS ORDERED: SODIUM BICARBONATE 8.4% INJ 50 MEQ/50 ML DISP.SYRIN ONE ×2 (17:58→20:35)
[2020-05-21] MEDS ORDERED: DEXTROSE 5%-WATER 250 ML with VASOPRESSIN 100 UNIT IV PRN ×2 (18:02)
[2020-05-21] MEDS ORDERED: VASOPRESSIN INJ 20 UNIT/1 ML VIAL ONE (18:05)
--- NOTE | 2020-05-21 18:49 | RADIOLOGY REPORT (SQ) ---
EXAM DESCRIPTION: CHEST SINGLE VIEW IMAGES COMPLETED DATE/TIME: 05/21/2020 6:33 pm REASON FOR STUDY: post tri lumen insertion COMPARISON: 05/21/2020 EXAM PARAMETERS: NUMBER OF VIEWS: One view. TECHNIQUE: Single frontal radiographic view of the chest acquired. RADIATION DOSE: NA LIMITATIONS: None. FINDINGS: LUNGS AND PLEURA: Extensive right pneumothorax. Mild perihilar infiltrates. MEDIASTINUM AND HILAR STRUCTURES: No masses. Contour normal. HEART AND VASCULAR STRUCTURES: Heart normal in size. Normal vasculature. BONES: No acute findings. HARDWARE: Endotracheal tube and NG tube remain in position. There is right internal jugular catheter with the tip in the superior vena cava. OTHER: No other significant finding. IMPRESSION: Large right pneumothorax status post right internal jugular catheter placement. COMMENT: Reported the findings to Maggie in the intensive care unit at 1843 hours on this date. TECHNICAL DOCUMENTATION: JOB ID: [id number] 2010 [employer]- All Rights Reserved Reading location - IP/workstation name: [email or web address]
--- NOTE | 2020-05-21 19:12 | RADIOLOGY REPORT (SQ) ---
EXAM DESCRIPTION: CHEST SINGLE VIEW IMAGES COMPLETED DATE/TIME: 05/21/2020 7:02 pm REASON FOR STUDY: Chest tube COMPARISON: 05/21/2020 EXAM PARAMETERS: NUMBER OF VIEWS: One view. TECHNIQUE: Single frontal radiographic view of the chest acquired. RADIATION DOSE: NA LIMITATIONS: None. FINDINGS: LUNGS AND PLEURA: The right lung has re-expanded. Bilateral airspace disease predominantl y in the lower lobes. MEDIASTINUM AND HILAR STRUCTURES: No masses. Contour normal. HEART AND VASCULAR STRUCTURES: Heart normal in size. Normal vasculature. BONES: No acute findings. HARDWARE: Endotracheal tube and right internal jugular catheter and NG tube remain in place. There i s now thoracotomy tube in the right apex. OTHER: No other significant finding. IMPRESSION: Right lung is re-expanded after thoracotomy tube placement. Bilateral airspace disease is unchanged. TECHNICAL DOCUMENTATION: JOB ID: [id number] 2010 [employer]- All Rights Reserved Reading location - IP/workstation name: [email or web address]
[2020-05-21] MEDS ORDERED: LORAZEPAM INJ 2 MG/1 ML VIAL ONE (19:24)
[2020-05-21] MEDS ORDERED: NORMAL SALINE 1000 ML 1,000 ML IV PRN (19:47)
[2020-05-21] MEDS ORDERED: NORMAL SALINE INJ/PF 0.9% 10 ML SDV IV PRN (19:57)
[2020-05-21] MEDS ORDERED: LORAZEPAM INJ 2 MG/1 ML VIAL IV ONE (20:00)
[2020-05-21] MEDS ORDERED: VANCOMYCIN HCL 750 MG in DEXTROSE 5%-WATER 250 ML IV SCH (20:00)
[2020-05-21 20:03] LABS: ARTERIAL BLOOD BASE EXCESS -8.8 mmol/L; ARTERIAL BLOOD H2CO3 1.94 mmol/L (1.05-1.35); ARTERIAL BLOOD HCO3 20.9 mmol/L (20-24); ARTERIAL BLOOD O2 SATURATION 99.4 % (94-98); ARTERIAL BLOOD PCO2 64.6 mmHg (35-45); ARTERIAL BLOOD PO2 284.4 mmHg (80-100); ARTERIAL BLOOD TOTAL CO2 22.9 mmol/L (23-27)
[2020-05-21 20:04] LABS: ARTERIAL BLOOD FIO2 100%
[2020-05-21 20:05] LABS: ARTERIAL BLOOD PH 7.13 (7.35-7.45)
--- NOTE | 2020-05-21 20:32 | CRITICAL CARE ADMISSION REPORT ---
HPI Date:: 05/21/20 Time:: 15:00 Reason for ICU Reason:: Acute respiratory failure Admission Date/Time & PCP: Admission Date/Time: Primary Care Provider: PITER LATHAM MD HPI: This 64-year-old male long-term resident is seen in the emergency department, where the patient presented after a reported aspiration event. He was apparently observed to go into respiratory distress. He was intubated by E [facility] on route to the ER. At the time of clinical interview, the patient is intubated, on mechanical ventilatory support and on norepinephrine infusion for blood pressure support. He is still under the effects of rapid sequence induction for intubation. Blood pressure 80s over 50s. Heart rate 130s. Ventilator settings: PRVC 12/450/100%/5. ABG has just been drawn. Results pending. History obtained from:: Discussion with Dr. Meehan - Diagnosis/Plan (1) Acute respiratory failure with hypoxia and hypercapnia Is this a current diagnosis for this admission?: Yes (2) Septic shock Is this a current diagnosis for this admission?: Yes Plan: Norepinephrine/vasopressin, as needed. Empiric Zosyn/Levaquin/vancomycin. Transduce CVP. (3) Urinary tract infection associated with indwelling urethral catheter Qualifiers: Encounter type: initial encounter Qualified Code(s): T83.511A - Infection and inflammatory reaction due to indwelling urethral catheter, initial encounter; N39.0 - Urinary tract infection, site not specified Is this a current diagnosis for this admission?: Yes (4) Hypovolemic shock Is this a current diagnosis for this admission?: Yes Plan: IV fluid resuscitation. (5) Dehydration Is this a current diagnosis for this admission?: Yes (6) Healthcare-associated pneumonia Is this a current diagnosis for this admission?: Yes Plan: Empiric antibiotics. (7) Chronic renal insufficiency, stage III (moderate) Is this a current diagnosis for this admission?: Yes (8) DM II (diabetes mellitus, type II), controlled Qualifiers: Is this a current diagnosis for this admission?: Yes (9) Tension pneumothorax Is this a current diagnosis for this admission?: Yes Plan: identified subsequent to emergent R IJ CVC placement. this was disclosed to family (Kristin Cornelius). emergent chest tube placed. Plan Summary: 20:20 update: Met with patient's sister in law (Kristin Cornelius), who is the only living family member, although related only through marriage. The patient's parents are . His in 2014, after which the patient's health has declined. He is institutionalized due to baseline dementia and inability to care for himself. He has no children. The patient's sister in law and her feel that the patient should be DO NOT RESUSCITATE. However, they also understand that they do not hold any legal rights or responsibilities in medical decision making. They have no power of bankruptcy attorney of any kind in relation to the patient. Based on the patient's available clinical history, current clinical condition and the description of his baseline status provided by the sister in law, I believe that it would be most ethical to continue to provide definitive car. However, in the event of cardiopulmonary arrest during his treatment, cardiopulmonary resuscitation is unlikely to provide results that would be meaningful to the patient or his remaining family members. I agree that he should be a DNR. Case management consultation will be obtained. Past Medical History Cardiac Medical History: Reports: Hypertension, Heart Murmur Denies: Congestive Heart Failure, Myocardial Infarction Pulmonary Medical History: Reports: Sleep Apnea Denies: Asthma, Chronic Obstructive Pulmonary Disease (COPD) Neurological Medical History: Reports: Seizures - on Keppra and Depakote Endocrine Medical History: Reports: Diabetes Mellitus Type 2 Denies: Diabetes Mellitus Type 1, Hyperthyroidism, Hypothyroidism GI Medical History: Reports: Gastroesophageal Reflux Disease Denies: Cirrhosis, Hepatitis Musculoskeltal Medical History: Denies: Arthritis, Gout Skin Medical History: Denies: Eczema, Psoriasis Psychiatric Medical History: Reports: Dementia, Depression, Post Traumatic Stress Disorder Traumatic Medical History: Reports: Traumatic Brain Injury Hematology: Reports: Anemia Denies: Bleeding Tendencies Past Surgical History Past Surgical History: Reports: Cholecystectomy, Tonsillectomy, Other - Colectomy for villous adenoma Social/Family History - Social History Smoking Status: Unknown if Ever Smoked Frequency of Alcohol Use: None Hx Recreational Drug Use: No Drugs: None Hx Prescription Drug Abuse: No - Medication/Allergies Home Medications: Citalopram Hydrobromide [Celexa 10 mg Tablet] 30 mg PO QAM 01/29/19 Docusate Sodium [Colace 100 mg Capsule] 100 mg PO BID 01/29/19 Levetiracetam [Keppra 500 mg Tablet] 500 mg PO TID 01/29/19 Loperamide HCl [Imodium 2 mg Capsule] 2 mg PO Q6HP PRN 01/29/19 Lorazepam [Ativan 0.5 mg Tablet] 1 mg PO BID PRN 01/29/19 Magnesium Hydroxide [Milk of Magnesia 30 ml Udcup] 30 ml PO DAILYP PRN 01/29/19 Tamsulosin HCl [Flomax 0.4 mg Cap.sr] 0.8 mg PO QHS 01/29/19 Cran/Vitc/Mannose/Fos/Bromeln [Uti-Stat Liquid] 30 ml PO QAM 01/17/20 Divalproex Sodium [Depakote ER] 500 mg PO BID 01/17/20 Dutasteride [Avodart Lf 0.5 mg Capsule] 0.5 mg PO DAILY 01/17/20 Omeprazole 20 mg PO QAM 01/17/20 Oxycodone HCl/Acetaminophen [Percocet 5-325 mg Tablet] 1 tab PO Q8HP PRN 01/17/20 Trazodone HCl 25 mg PO QHS 01/17/20 Baclofen [Baclofen 10 mg Tablet] 10 mg PO Q6HP PRN 05/21/20 Diclofenac Sodium 2 gm TP QIDP PRN 05/21/20 Dronabinol [Marinol 2.5 mg Capsule] 2.5 mg PO BID 05/21/20 Menthol [Biofreeze] 1 applic TP Q6 05/21/20 Nitrofurantoin Macrocrystal [Nitrofurantoin] 100 mg PO Q6HP PRN 05/21/20 Allergies/Adverse Reactions: clonazepam [From Klonopin] Allergy (Verified 05/21/20 14:10) Review of Systems ROS unobtainable: Due to endotracheal tube, Due to mental status Physical Exam Vital Signs: Temp Pulse Resp BP Pulse Ox 16 93/74 L 95 05/21/20 14:45 05/21/20 14:45 05/21/20 14:49 Intake & Output 05/20/20 05/21/20 05/22/20 06:59 06:59 06:59 Weight 70.76 kg Weight/Height Weight 70.76 kg Height 1.7 m General appearance: PRESENT: no acute distress, thin Head exam: PRESENT: atraumatic, normocephalic Eye exam: PRESENT: conjunctiva pink. ABSENT: periorbital swelling, scleral icterus Mouth exam: PRESENT: dry mucosa, tongue midline Neck exam: ABSENT: carotid bruit, JVD, lymphadenopathy, thyromegaly Respiratory exam: PRESENT: clear to auscultation carolyn. ABSENT: rales, rhonchi, wheezes Cardiovascular exam: PRESENT: RRR, tachycardia. ABSENT: diastolic murmur, rubs, systolic murmur Pulses: PRESENT: normal carotid pulses. ABSENT: normal dorsalis pedis pul GI/Abdominal exam: PRESENT: normal bowel sounds, soft. ABSENT: distended, guarding, mass, organolmegaly, rebound, tenderness Extremities exam: PRESENT: full ROM. ABSENT: calf tenderness, clubbing, pedal edema Musculoskeletal exam: PRESENT: normal inspection. ABSENT: deformity Neurological exam: PRESENT: other - Still under the effects of rapid sequence induction Psychiatric exam: ABSENT: agitated, anxious Skin exam: PRESENT: dry, intact, warm, other - Tenting. ABSENT: cyanosis, rash Tubes/Lines: PRESENT: Endotracheal Tube Laboratory/Radiographs Laboratory Results: 05/21/20 13:52 05/21/20 13:52 05/21/20 05/21/20 05/21/20 13:52 13:52 13:52 WBC 17.6 H RBC 4.38 Hgb 14.3 Hct 42.6 MCV 97 MCH 32.6 MCHC 33.5 RDW 14.4 H Plt Count 356 Seg Neutrophils % Not Reportable Carbonic Acid HCO3/H2CO3 Ratio ABG pH ABG pCO2 ABG pO2 ABG HCO3 ABG O2 Saturation ABG Base Excess FiO2 Sodium 151.9 H Potassium 4.1 Chloride 110 H Carbon Dioxide 29 Anion Gap 13 BUN 54 H Creatinine 1.00 Est GFR ( Amer) > 60 Glucose 174 H Lactic Acid 3.1 H Calcium 10.3 H Total Bilirubin 1.1 AST 30 Alkaline Phosphatase 94 Total Protein 7.1 Albumin 3.4 L Urine Color Urine Appearance Urine pH Ur Specific [place] Urine Protein Urine Glucose (UA) Urine Ketones Urine Blood Urine RBC (Auto) 05/21/20 05/21/20 14:05 14:30 WBC RBC Hgb Hct MCV MCH MCHC RDW Plt Count Seg Neutrophils % Carbonic Acid 4.14 H HCO3/H2CO3 Ratio 8:1 ABG pH 7.01 L* ABG pCO2 137.7 H* ABG pO2 128.0 H ABG HCO3 34.3 H ABG O2 Saturation 96.3 ABG Base Excess -1.3 FiO2 100 Sodium Potassium Chloride Carbon Dioxide Anion Gap BUN Creatinine Est GFR ( Amer) Glucose Lactic Acid Calcium Total Bilirubin AST Alkaline Phosphatase Total Protein Albumin Urine Color MARIE Urine Appearance SLIGHTLY-CLOUDY Urine pH 5.0 Ur Specific [place] 1.024 Urine Protein 100 H Urine Glucose (UA) NEGATIVE Urine Ketones TRACE H Urine Blood SMALL H Urine RBC (Auto) 6 05/21/20 05/21/20 13:52 13:52 Creatine Kinase < 20 L Troponin I 0.077 Impressions: Chest X-Ray 05/21/20 13:43 IMPRESSION: SATISFACTORY POSITION OF THE ENDOTRACHEAL TUBE. LOWER LOBE INFILTRATES CONCERNING FOR PNEUMONIA, POSSIBLY VIRAL. All labs, radiographs, diagnostic studies and EKGs were personally reviewed: Yes In addition, reports of radiographic and diagnostic studies were read: Yes Critical Time Critical Time (minutes): 120 -: The care of a critically ill patient is dynamic. This note represents a static moment in the admission process. Orders and treatments may be given simul taneously and urgently, and time is not manufacturers service representative of the treatment process. This patient requires Critical Care secondary to life threatening organ or limb dysfunction. Without Critical Care services, the patient is at risk for increased mortality and morbidity.
[2020-05-21] MEDS ORDERED: DEXTROSE 5%-WATER 1000 ML 1,000 ML with SODIUM BICARBONATE 150 MEQ IV PRN ×2 (20:37)
[2020-05-21] MEDS: BUDESONIDE NEB 0.25 MG/2 ML AMPUL NEB SCH (20:47)
[2020-05-21] MEDS ORDERED: SODIUM BICARBONATE 8.4% INJ 50 MEQ/50 ML DISP.SYRIN IV ONE (21:00)
[2020-05-21 21:07] LABS: VENOUS BLOOD BASE EXCESS -8.4 mmol/L; VENOUS BLOOD HCO3 22.9 mmol/L (20-32)
[2020-05-21 21:10] LABS: VENOUS BLOOD PCO2 73.8 mmHg (35-63); VENOUS BLOOD PH 7.11 (7.30-7.42)
[2020-05-21] MEDS: INSULIN REG, HUMAN 100 UNIT/ML 3 ML VIAL (PYX) SUBCUT SCH ×2 (21:41→23:31)
[2020-05-21] MEDS: PIPERACILLIN SODIUM/TAZOBACTAM 4.5 GM in NORMAL SALINE 100 ML IV SCH (21:43)
--- NOTE | 2020-05-21 21:43 | Operative Report ---
Bedside Procedure - History of Present Illness Indication for Procedure: shock, R tension pneumothorax Date: 05/21/20 Provider: MARAL CONTRERAS - Central Line Right Internal jugular Time completed: 17:30 Consent obtained: No - emergent conditions Central line pre-insertion: Sterile PPE donned, Chloraprep applied, Sterile drapes applied Central line lumen type: Triple Anesthetic type: 1% Lidocaine mL's of anesthesia: 5 Ultrasound guided: Yes CM at insertion site: 17 Line secured with sutures: Yes Central line post-insertion: Blood return from lumens, Biopatch applied, Sutured, Sterile dressing applied, Position confirmed w/ CXR Number of attempts: 2 Complications: Yes - pneumothorax - Chest Tube Right Midaxillary Time completed: 18:00 Consent obtained: No - emergent conditions Chest tube pre-insertion: Sterile PPE donned, Chloraprep applied, Sterile drapes applied Size of [place] Tube (cm): 32 Anesthetic type: 1% Lidocaine mL's of anesthetic: 5 Chest tube post-insertion: Air neal heard, Sutured, Position confirmed w/ CXR, Other - wall suction Chest tube drainage: Air Number of attempts: 1 Complications: No Notes: 05/21/20 21:39 Procedure in detail: Chest tube placed under emergent conditions for tension pneumothorax. The right chest was prepped and draped in a normal sterile fashion. An incision was created at approximately the level of the fourth interspace, just anterioro to the mid-axillary line. Dissection was carried to the chest wall using blunt dissection. The chest was entered over top of the rib, using a blunt Masha clamp. The Masha clamp was spread, and a large neal of air was identified. The 32 [place] chest tube was then inserted into the chest cavity. It was directed posteriorly and superiorly. It was sutured to the skin. A dressing was placed, and the tube was placed to Pleur-evac suction. The procedure at this time was concluded. All sponge, instrument, and needle counts were correct. Follow up CXR confirmed re-expansion of the right lung.
[2020-05-22] MEDS ORDERED: SODIUM BICARBONATE 8.4% INJ 50 MEQ/50 ML DISP.SYRIN ONE ×2 (00:01→00:20)
[2020-05-22] MEDS ORDERED: FUROSEMIDE INJ/PF 40 MG/4 ML SDV ONE (00:19)
[2020-05-22] MEDS ORDERED: SODIUM BICARBONATE 8.4% INJ 50 MEQ/50 ML DISP.SYRIN IV ONE (00:20)
[2020-05-22] MEDS ORDERED: LEVETIRACETAM 500 MG/NACL-ISO 500 MG/100 ML RTUPB IV ONE (00:30)
[2020-05-22] MEDS ORDERED: FUROSEMIDE INJ/PF 40 MG/4 ML SDV IV ONE (00:30)
[2020-05-22] MEDS ORDERED: LEVETIRACETAM 500 MG in NORMAL SALINE 100 ML IV ONE (00:30)
[2020-05-22] MEDS: DEXTROSE 5%-WATER 250 ML with NOREPINEPHRINE BITARTRATE 4 MG IV PRN ×8 (01:35→05:28)
[2020-05-22] MEDS ORDERED: DEXTROSE 5%-WATER 1000 ML 1,000 ML with SODIUM BICARBONATE 150 MEQ IV PRN ×2 (01:39)
[2020-05-22] MEDS ORDERED: PIPERACILLIN/TAZOBACTAM 4.5 GM VIAL IV ONE (03:49)
[2020-05-22 04:21] LABS: ARTERIAL BLOOD BASE EXCESS -1.4 mmol/L; ARTERIAL BLOOD H2CO3 2.25 mmol/L (1.05-1.35); ARTERIAL BLOOD HCO3 28.4 mmol/L (20-24); ARTERIAL BLOOD O2 SATURATION 91.9 % (94-98); ARTERIAL BLOOD PO2 77.6 mmHg (80-100); ARTERIAL BLOOD TOTAL CO2 30.7 mmol/L (23-27)
[2020-05-22 04:25] LABS: ARTERIAL BLOOD FIO2 100%; ARTERIAL BLOOD PCO2 74.9 mmHg (35-45)
[2020-05-22 04:27] LABS: HEMATOCRIT 37.4 % (37.9-51.0); HEMOGLOBIN 12.8 g/dL (13.5-17.0); MEAN CORPUSCULAR HEMOGLOBIN 33.5 pg (27.0-33.4); MEAN CORPUSCULAR HGB CONC 34.1 g/dL (32.0-36.0); MEAN CORPUSCULAR VOLUME 98 fl (80-97); RED BLOOD COUNT 3.81 10^6/uL (4.35-5.55)
[2020-05-22] MEDS: PIPERACILLIN SODIUM/TAZOBACTAM 4.5 GM in NORMAL SALINE 100 ML IV SCH (04:29)
[2020-05-22 04:33] LABS: ALKALINE PHOSPHATASE 42 U/L (38-126); ANION GAP 11 (5-19); ASPARTATE AMINO TRANSFERASE 560 U/L (17-59); BILIRUBIN,DIRECT 0.8 mg/dL (0.0-0.4); BILIRUBIN,TOTAL 1.1 mg/dL (0.2-1.3); BLOOD UREA NITROGEN 53 mg/dL (7-20); CALCIUM 7.9 mg/dL (8.4-10.2); CARBON DIOXIDE 32 mmol/L (22-30); CHLORIDE 102 mmol/L (98-107); GLUCOSE 212 mg/dL (75-110); POTASSIUM 3.3 mmol/L (3.6-5.0); TOTAL PROTEIN 4.5 g/dL (6.3-8.2)
[2020-05-22 05:14] LABS: ABSOLUTE LYMPHOCYTES# (MANUAL) 0.2 10^3/uL (0.5-4.7); ABSOLUTE MONOCYTES # (MANUAL) 0.4 10^3/uL (0.1-1.4); BAND NEUTROPHILS % (MANUAL) 2 % (3-5); BASOPHILS % (MANUAL) 0 % (0-2); EOSINOPHILS % (MANUAL) 0 % (0-6); LYMPHOCYTES % (MANUAL) 6 % (13-45); MONOCYTES % (MANUAL) 14 % (3-13); SEGMENTED NEUTROPHILS % (MAN) 78 % (42-78); TOTAL CELLS COUNTED 100
[2020-05-22 05:15] LABS: TOXIC VACUOLATION PRESENT
[2020-05-22 05:17] LABS: PLATELET CLUMPS PRESENT; PLATELET COMMENT ADEQUATE; POLYCHROMASIA SLIGHT
[2020-05-22 05:18] LABS: PLATELET COUNT 299 10^3/uL (150-450); RBC MORPHOLOGY COMMENT NORMO-CYTIC/CHROMIC; WHITE BLOOD COUNT 2.9 10^3/uL (4.0-10.5)
[2020-05-22] MEDS: INSULIN REG, HUMAN 100 UNIT/ML 3 ML VIAL (PYX) SUBCUT SCH (05:39)
[2020-05-22 06:20] VITALS: BP 130/109
--- NOTE | 2020-05-22 07:07 | Progress Note ---
Provider Note Provider Note: At 0635 patient went into PEA arrest CPR initiated 1 amp of epinephrine and 1 amp of bicarb given ROSC achieved. He is maintained on vasopressin 0.04 mcg/min Levophed 32 mcg and dopamine 20 mcg.
--- NOTE | 2020-05-22 07:23 | Death Summary ---
Summary Date : 05/22/20 Time of :: 07:06 Autopsy: No Resuscitation Status: Full Code - Final Diagnosis (1) Acute respiratory failure with hypoxia and hypercapnia Is this a current diagnosis for this admission?: Yes (2) Septic shock Is this a current diagnosis for this admission?: Yes Hospital Course:: 64-year-old male [place] [facility] resident presented to the ER after a reported aspiration event. He was apparently observed to go into respiratory distress. He was intubated by EMS on route to the ER. He was hypotensive and started on norepinephrine infusion for blood pressure support. Ventilator settings: PRVC 12/450/100%/5. Central ine placed and he was found to have a right ptx chest tube was placed with reexpansion of the right lung. Throughout the night patient remained profoundly hypotensive despite being on Levophed at 32 mcg, vasopressin at 0.04 mcg/min, and dopamine 20 mcg. At 0635 patient went into PEA arrest CPR initiated 1 amp of epinephrine and 1 amp of bicarb given ROSC achieved. He is maintained on vasopressin 0.04 mcg/min Levophed 32 mcg and dopamine 20 mcg. At 705 patient became profoundly bradycardic with wide complex, he was given 1 amp of epinephrine, given the futility of CPR code was called patient at 7:06 AM. [id number] Kristin Cornelius was notified condolences offered.
[2020-05-22] MEDS ORDERED: EPINEPHRINE INJ 1 MG/10 ML DISP.SYRIN IV ONE (08:15)
[2020-05-22] MEDS: BUDESONIDE NEB 0.25 MG/2 ML AMPUL NEB SCH (08:18)
[2020-05-22] MEDS ORDERED: LEVETIRACETAM 500 MG in NORMAL SALINE 100 ML IV SCH (10:00)
[2020-05-22] MEDS ORDERED: LEVETIRACETAM 500 MG/NACL-ISO 500 MG/100 ML RTUPB IV SCH (10:00)
[2020-05-22] MEDS ORDERED: LEVOFLOXACIN 750 MG/D5W RTU 750 MG/150 ML RTUPB IV SCH (12:00)
== END 2020-05-22 07:06 | DRG 871 ==
LOC: ER 13:34 → EH 15:01 → ICU 16:11
PROVIDERS: ADMIT Internal Medicine Critical Care Medicine; ATTEND Internal Medicine Critical Care Medicine
PROC: 5A1935Z Respiratory Ventilation, Less than 24 Consecutive Hours (ICD-10-PCS; principal; 2020-05-21)
PROC: 05HM33Z Insertion of Infusion Device into Right Internal Jugular Vein, Percutaneous Approach (ICD-10-PCS; 2020-05-21)
PROC: 0W9900Z Drainage of Right Pleural Cavity with Drainage Device, Open Approach (ICD-10-PCS; 2020-05-21)
DX: A41.9 Sepsis, unspecified organism (principal); R65.21 Severe sepsis with septic shock; J93.0 Spontaneous tension pneumothorax; J96.01 Acute respiratory failure with hypoxia; J18.9 Pneumonia, unspecified organism; T83.511A Infection and inflammatory reaction due to indwelling urethral catheter, initial encounter; N39.0 Urinary tract infection, site not specified; E86.0 Dehydration; Z20.828 Contact with and (suspected) exposure to other viral communicable diseases; N40.0 Benign prostatic hyperplasia without lower urinary tract symptoms; K21.9 Gastro-esophageal reflux disease without esophagitis; Y84.6 Urinary catheterization as the cause of abnormal reaction of the patient, or of later complication, without mention of misadventure at the time of the procedure; Y82.8 Other medical devices associated with adverse incidents; E11.22 Type 2 diabetes mellitus with diabetic chronic kidney disease; I12.9 Hypertensive chronic kidney disease with stage 1 through stage 4 chronic kidney disease, or unspecified chronic kidney disease; N18.30 Chronic kidney disease, stage 3 unspecified; R57.1 Hypovolemic shock; G40.909 Epilepsy, unspecified, not intractable, without status epilepticus; Z79.899 Other long term (current) drug therapy; Z88.8 Allergy status to other drugs, medicaments and biological substances
CPT/HCPCS: 32551; 36415; 36556; 36600; 71045; 80053; 81001; 82550; 82803; 82962; 83605; 83880; 84484; 85025; 85610; 87040; 87077; 87086; 87088; 87150; 87186; 87635; 92950; 93005; 93010; 94002; 94003; 99291; 99292; C9803; J0171; J1265; J1815; J1940; J1953; J1956; J2060; J2543; J3370; J3490; J7030; J7050; J7060; J7613